=== PATIENT | male | born 1930 | race Caucasian/White ===

== ENCOUNTER 2017-03-20 15:11 | Outpatient (CLI) ==
[2016-08-22 10:46] VITALS: BMI 25.7
[2017-03-20 16:29] LABS: BASOPHILS % (AUTO) 0.4 % (0.0-3.0); EOSINOPHILS # (AUTO) 0.2 K/ul (0.0-0.7); EOSINOPHILS % (AUTO) 3.2 % (0.0-7.0); HEMATOCRIT 40.4 % (42.0-52.0); HEMOGLOBIN 13.7 g/dl (14.0-18.0); IMMATURE GRANULOCYTE % (AUTO) 0.6 % (0.0-5.0); LYMPHOCYTES # (AUTO) 1.2 K/uL (0.60-3.4); LYMPHOCYTES % (AUTO) 24.2 (10.0-50.0); MEAN CORPUSCULAR HEMOGLOBIN 29.5 pg (27.0-31.0); MEAN CORPUSCULAR HGB CONC 33.9 (31.8-35.4); MEAN CORPUSCULAR VOLUME 87.1 fl (80.0-94.0); MONOCYTES # (AUTO) 0.6 K/uL (0.4-2.0); MONOCYTES % (AUTO) 12.5 (0-10); NEUTROPHILS % (AUTO) 59.1; PLATELET COUNT 141 10^3/uL (140-440); RED BLOOD COUNT 4.64 10^6/ul (4.70-6.10); WHITE BLOOD COUNT 5.04 K/ul (4.2-10.2)
[2017-03-20 17:02] LABS: ALBUMIN 3.8 g/dL (3.4-5.0); ALBUMIN/GLOBULIN RATIO 1.15; ANION GAP 14.2; BILIRUBIN,TOTAL 0.4 mg/dL (0.00-1.20); BUN/CREATININE RATIO 9.7; CALCIUM 9.1 mg/dL (8.2-10.2); CHOL/HDL RATIO 4.2 (4.5-6.4); CREATININE 1.03 mg/dL (0.60-1.10); POTASSIUM 4.2 mmol/L (3.5-5.1); TOTAL PROTEIN 7.1 g/dL (5.8-8.1)
== END 2017-03-20 15:12 | disposition home or self-care (01) ==
LOC: LAB 15:11
PROVIDERS: ATTEND Emergency Medicine
DX: E11.9 Type 2 diabetes mellitus without complications (principal); I10 Essential (primary) hypertension; E78.5 Hyperlipidemia, unspecified; M54.2 Cervicalgia; Z12.5 Encounter for screening for malignant neoplasm of prostate; J44.9 Chronic obstructive pulmonary disease, unspecified
CPT/HCPCS: 36415; 80053; 80061; 83036; 84443; 85025

== ENCOUNTER 2017-03-28 14:27 | Inpatient (IN) ==
--- NOTE | 2017-03-28 14:39 | ED.PDOC ---
General ED Provider: Dr. PHAM WOODARD JR Chief Complaint: Dizziness Stated Complaint: patient c/o feeling dizzy and weak. states he saw dr. menard on or thursday for neck pain. states he had blood drawn but unsure what it showed. states his eyes are bothering him too "I just about can't see"[End] 97.9 56 14 95% 173/87 10 Time Seen by Physician: 14:39 Information Source: Patient Exam Limitations: No limitations Primary Care Provider: AZAEL MENARD[facility] Nursing and Triage Documentation Reviewed and Agree: No Review of Systems - Review Of Systems Constitutional: Reports: Malaise, Weakness Eyes: Reports: Blurred vision, Vision change, Other (history damage to right eye ) Ears, Nose, Mouth, Throat: Reports: No symptoms Respiratory: Reports: No symptoms Cardiac: Reports: Lightheadedness GI: Reports: No symptoms : Reports: No symptoms Musculoskeletal: Reports: Other Skin: Reports: No symptoms Neurological: Reports: Weakness Endocrine: Reports: No symptoms Hematologic/Lymphatic: Reports: No symptoms All Other Systems: Other Past Medical History - Past Medical History Previously Healthy: No Endocrine: Reports: DM 2, Dyslipidemia Cardiovascular: Reports: CAD, Hypertension Respiratory: Reports: COPD Hematological: Reports: Anemia Gastrointestinal: Reports: GERD Genitourinary: Reports: None Neuro/Psych: Reports: Anxiety Musculoskeletal: Reports: Arthritis, Back Pain, Joint Pain Cancer: Reports: None Other Pertinent Past Medical History: Shingles , 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 - Surgical History General Surgical History: Reports: None, Back Surgery, Other (sx stomach sx), Unknown - Family History Family History: Reports: None - Social History Smoking Status: Former smoker Hx Substance Use: No Alcohol Screening: None Physical Exam - Physical Exam Appearance: Well-appearing Eyes: HAYDEE, EOMI, Conjunctiva clear ENT: Ears normal, Nose normal, Oropharynx normal Neck: Supple Respiratory: Airway patent, Breath sounds clear, Breath sounds equal, Respirations nonlabored Cardiovascular: RRR, Pulses normal, No rub, No murmur GI/: Soft, Nontender, No masses, Bowel sounds normal, No Organomegaly Musculoskeletal: Normal strength, ROM intact, No edema, No calf tenderness Skin: Warm, Dry, Normal color Neurological: Sensation intact, Motor intact, Reflexes intact, Cranial nerves intact, Alert, Oriented Psychiatric: Anxious Interpretation - Radiology Interpretation Radiology Interpretation By: Radiologist Radiology Results: Positive Exam Interpreted: CT Scan (bilateral SDH (contacted dr Menard calling orthodox Dr Westfall)) - EKG Interpretation Time of EKG #1: 15:03 Rate: Willian Rhythm: Sinus ST Segment: Other (1st deg AVB) Critical Care Note - Critical Care Note Total Time (mins): 20 Course - Course Hematology/Chemistry: 03/29/17 04:30 03/29/17 04:30 Orders, Labs, Meds: Lab Review 03/28/17 15:00 WBC 4.96 RBC 4.22 L Hgb 12.5 L Hct 36.1 L MCV 85.5 MCH 29.6 MCHC 34.6 RDW Coeff of Oj 14.0 Plt Count 140 Immature Gran % (Auto) 0.4 Neut % (Auto) 59.3 Lymph % (Auto) 23.4 [place] % (Auto) 12.7 H Eos % (Auto) 3.8 Baso % (Auto) 0.4 Immature Gran # (Auto) 0.0 Neut # 2.9 Lymph # 1.2 [place] # 0.6 Eos # 0.2 Baso # 0.0 PT 9.8 INR 0.95 APTT 23.8 L Sodium 141 Potassium 4.2 Chloride 105 Carbon Dioxide 21 L Anion Gap 19.2 BUN 14 Creatinine 1.18 H Estimated GFR (MDRD) 59.00 BUN/Creatinine Ratio 11.86 Glucose 186 H Calcium 9.1 Total Bilirubin 0.31 AST 15 ALT 19 Alkaline Phosphatase 65 Total Creatine Kinase 69 Troponin I < 0.0100 B-Natriuretic Peptide 43 Total Protein 6.6 Albumin 3.6 Globulin 3.0 Albumin/Globulin Ratio 1.20 Orders Category Date Time Status ADMIT PATIENT INPATIENT .TO SCU (MONITORED BED) ADMISSION 03/28/17 15:46 Active EKG-(ED ONLY) Stat CARDIO 03/28/17 14:42 Completed ACTIVITY .BR with BRP CARE 03/28/17 15:46 Active BLOOD GLUCOSE MONITORING 0630,1100,1700,2100 CARE 03/28/17 15:55 Active GIVE HS SNACK 2100 CARE 03/28/17 15:55 Active INTAKE & OUTPUT Q8HR CARE 03/28/17 15:46 Active Neuro Check [NEUROLOGICAL CHECKS] Q2HR CARE 03/28/17 15:49 Active TELEMETRY MONITORING TELE CARE 03/28/17 15:47 Active VITAL SIGNS Q4HR CARE 03/28/17 15:46 Active ADA 1800 KYLE. DIET DIETARY 03/28/17 Dinner Ordered HS SNACK DIETARY 03/28/17 Dinner Ordered B-TYPE NATRIURETIC PEPTIDE Stat LAB 03/28/17 15:00 Completed CBC W/ AUTO DIFF DAILY@0600 LAB 03/29/17 04:30 Completed CBC W/ AUTO DIFF DAILY@0600 LAB 03/30/17 06:00 Ordered CBC W/ AUTO DIFF DAILY@0600 LAB 03/31/17 06:00 Ordered CBC W/ AUTO DIFF DAILY@0600 LAB 04/01/17 06:00 Ordered CBC W/ AUTO DIFF DAILY@0600 LAB 04/02/17 06:00 Ordered CBC W/ AUTO DIFF DAILY@0600 LAB 04/03/17 06:00 Ordered CBC W/ AUTO DIFF DAILY@0600 LAB 04/04/17 06:00 Ordered CBC W/ AUTO DIFF DAILY@0600 LAB 04/05/17 06:00 Ordered CBC W/ AUTO DIFF DAILY@0600 LAB 04/06/17 06:00 Ordered CBC W/ AUTO DIFF DAILY@0600 LAB 04/07/17 06:00 Ordered CBC W/ AUTO DIFF DAILY@0600 LAB 04/08/17 06:00 Ordered CBC W/ AUTO DIFF DAILY@0600 LAB 04/09/17 06:00 Ordered CBC W/ AUTO DIFF DAILY@0600 LAB 04/10/17 06:00 Ordered CBC W/ AUTO DIFF DAILY@0600 LAB 04/11/17 06:00 Ordered CBC W/ AUTO DIFF DAILY@0600 LAB 04/12/17 06:00 Ordered CBC W/ AUTO DIFF DAILY@0600 LAB 04/13/17 06:00 Ordered CBC W/ AUTO DIFF DAILY@0600 LAB 04/14/17 06:00 Ordered CBC W/ AUTO DIFF DAILY@0600 LAB 04/15/17 06:00 Ordered CBC W/ AUTO DIFF DAILY@0600 LAB 04/16/17 06:00 Ordered CBC W/ AUTO DIFF DAILY@0600 LAB 04/17/17 06:00 Ordered CBC W/ AUTO DIFF Stat LAB 03/28/17 15:00 Completed COMPREHENSIVE METABOLIC PANEL DAILY@0600 LAB 03/29/17 04:30 Completed COMPREHENSIVE METABOLIC PANEL DAILY@0600 LAB 03/30/17 06:00 Ordered COMPREHENSIVE METABOLIC PANEL DAILY@0600 LAB 03/31/17 06:00 Ordered COMPREHENSIVE METABOLIC PANEL DAILY@0600 LAB 04/01/17 06:00 Ordered COMPREHENSIVE METABOLIC PANEL DAILY@0600 LAB 04/02/17 06:00 Ordered COMPREHENSIVE METABOLIC PANEL DAILY@0600 LAB 04/03/17 06:00 Ordered COMPREHENSIVE METABOLIC PANEL DAILY@0600 LAB 04/04/17 06:00 Ordered COMPREHENSIVE METABOLIC PANEL DAILY@0600 LAB 04/05/17 06:00 Ordered COMPREHENSIVE METABOLIC PANEL DAILY@0600 LAB 04/06/17 06:00 Ordered COMPREHENSIVE METABOLIC PANEL DAILY@0600 LAB 04/07/17 06:00 Ordered COMPREHENSIVE METABOLIC PANEL DAILY@0600 LAB 04/08/17 06:00 Ordered COMPREHENSIVE METABOLIC PANEL DAILY@0600 LAB 04/09/17 06:00 Ordered COMPREHENSIVE METABOLIC PANEL DAILY@0600 LAB 04/10/17 06:00 Ordered COMPREHENSIVE METABOLIC PANEL DAILY@0600 LAB 04/11/17 06:00 Ordered COMPREHENSIVE METABOLIC PANEL DAILY@0600 LAB 04/12/17 06:00 Ordered COMPREHENSIVE METABOLIC PANEL DAILY@0600 LAB 04/13/17 06:00 Ordered COMPREHENSIVE METABOLIC PANEL DAILY@0600 LAB 04/14/17 06:00 Ordered COMPREHENSIVE METABOLIC PANEL DAILY@0600 LAB 04/15/17 06:00 Ordered COMPREHENSIVE METABOLIC PANEL DAILY@0600 LAB 04/16/17 06:00 Ordered COMPREHENSIVE METABOLIC PANEL DAILY@0600 LAB 04/17/17 06:00 Ordered COMPREHENSIVE METABOLIC PANEL Stat LAB 03/28/17 15:00 Completed CREATINE KINASE Stat LAB 03/28/17 15:00 Completed PARTIAL THROMBOPLASTIN TIME Stat LAB 03/28/17 15:00 Completed PT WITH INR DAILY@0600 LAB 03/29/17 04:30 Completed PT WITH INR DAILY@0600 LAB 03/30/17 06:00 Ordered PT WITH INR DAILY@0600 LAB 03/31/17 06:00 Ordered PT WITH INR DAILY@0600 LAB 04/01/17 06:00 Ordered PT WITH INR DAILY@0600 LAB 04/02/17 06:00 Ordered PT WITH INR DAILY@0600 LAB 04/03/17 06:00 Ordered PT WITH INR DAILY@0600 LAB 04/04/17 06:00 Ordered PT WITH INR DAILY@0600 LAB 04/05/17 06:00 Ordered PT WITH INR DAILY@0600 LAB 04/06/17 06:00 Ordered PT WITH INR DAILY@0600 LAB 04/07/17 06:00 Ordered PT WITH INR DAILY@0600 LAB 04/08/17 06:00 Ordered PT WITH INR DAILY@0600 LAB 04/09/17 06:00 Ordered PT WITH INR DAILY@0600 LAB 04/10/17 06:00 Ordered PT WITH INR DAILY@0600 LAB 04/11/17 06:00 Ordered PT WITH INR DAILY@0600 LAB 04/12/17 06:00 Ordered PT WITH INR DAILY@0600 LAB 04/13/17 06:00 Ordered PT WITH INR DAILY@0600 LAB 04/14/17 06:00 Ordered PT WITH INR DAILY@0600 LAB 04/15/17 06:00 Ordered PT WITH INR DAILY@0600 LAB 04/16/17 06:00 Ordered PT WITH INR DAILY@0600 LAB 04/17/17 06:00 Ordered PT WITH INR Stat LAB 03/28/17 15:00 Completed TROPONIN I Stat LAB 03/28/17 15:00 Completed Amlodipine Besylate [Norvasc] MEDS 03/28/17 21:00 Discontinued 10 mg PO BID Gabapentin [Neurontin] MEDS 03/28/17 21:00 Discontinued 300 mg PO TID Hydrocodone Bit/Acetaminophen [Anderson 5-325] MEDS 03/28/17 15:51 Active 0.5 tab PO BID PRN Insulin Detemir [Levemir] MEDS 03/28/17 21:00 Discontinued 28 unit SUBCUT BID Insulin Regular, Human [Humulin R] MEDS 03/28/17 15:54 Active See Protocol SUBCUT PRN PRN Latanoprost [Xalatan] MEDS 03/28/17 21:00 Active 1 drop OP BEDTIME Lisinopril [Lisinopril] MEDS 03/28/17 21:00 Discontinued 20 mg PO BID Omeprazole [Prilosec] MEDS 03/29/17 06:30 Active 20 mg PO QDAC Simvastatin [Zocor] MEDS 03/29/17 09:00 Discontinued 20 mg PO DAILY RESUSCITATION STATUS Routine OTHERS 03/28/17 15:46 Ordered CHEST, 1V AP ONLY Stat RADS 03/28/17 14:[address] HEAD W/O CONTRAST Stat RADS 03/28/17 14:[address] HEAD W/O CONTRAST Timed RADS 03/29/17 15:00 Ordered Medications Generic Name Dose Route Start Last Admin Trade Name Oumou PRN Reason Stop Dose Admin Acetaminophen/Hydrocodone Bitart 0.5 tab 03/28/17 15:51 Anderson 5-325 PO BID PRN pain Gabapentin 600 mg 03/29/17 07:23 03/29/17 08:59 Neurontin PO 600 mg TID ANTHONY Administration Insulin Detemir 50 unit 03/29/17 09:00 03/29/17 08:57 Levemir SUBCUT 50 unit BID ANTHONY Administration Insulin Human Regular 0 unit 03/28/17 15:54 03/29/17 11:05 Humulin R SUBCUT 3 unit PRN PRN Administration Hyperglycemica Protocol Latanoprost 1 drop 03/28/17 21:00 03/28/17 21:02 Xalatan OP 1 drop BEDTIME ANTHONY Administration Lisinopril 20 mg 03/29/17 09:00 03/29/17 08:58 Zestril PO 20 mg BID ANTHONY Administration Omeprazole 20 mg 03/29/17 06:30 03/29/17 05:48 Prilosec PO 20 mg QDAC ANTHONY Administration Simvastatin 20 mg 03/29/17 09:30 03/29/17 09:11 Zocor PO 20 mg DAILY ANTHONY Administration Sodium Chloride 1 syr 03/28/17 21:00 03/29/17 13:09 Saline Flush IVF 1 syr Q8HR ANTHONY Administration Discontinued Medications Generic Name Dose Route Start Last Admin Trade Name Hairq PRN Reason Stop Dose Admin Gabapentin 300 mg 03/28/17 21:00 03/28/17 20:58 Neurontin PO 300 mg TID ANTHONY Administration Insulin Detemir 28 unit 03/28/17 21:00 03/28/17 21:00 Levemir SUBCUT 28 unit BID ANTHONY Administration Non-Formulary Medication 10 mg 03/28/17 21:00 03/28/17 20:59 Amlodipine Besylate [Norvasc] PO Not Given BID ANTHONY Non-Formulary Medication 20 mg 03/28/17 21:00 03/28/17 21:03 Lisinopril [Lisinopril] PO Not Given BID ANTHONY Non-Formulary Medication 600 mg 03/28/17 21:00 03/28/17 21:04 Gabapentin [Gabapentin] PO 600 mg TID ANTHONY Administration Simvastatin 20 mg 03/29/17 09:00 03/29/17 09:14 Zocor PO Not Given DAILY ANTHONY Vital Signs: Temp Pulse Resp BP Pulse Ox 03/28/17 14:28 97.9 F 56 L 14 173/87 H 95 Departure - Departure Time of Disposition: 15:40 Disposition: ADMITTED INPATIENT Discharge Problem: Dizziness, Intracerebral hemorrhage Condition: Fair Pt referred to PMD for follow-up: Yes Allergies/Adverse Reactions: Allergies No Known Allergies Allergy (Verified 03/28/17 14:31) Home Medications: Ambulatory Orders Omeprazole [Prilosec] 20 mg PO QDAC 08/15/13 Gabapentin 600 mg PO TID 06/19/14 Lisinopril 20 mg PO BID 06/19/14 Simvastatin 20 mg PO DAILY 06/19/14 Latanoprost [Xalatan] 1 drop OP BEDTIME 06/27/14 Insulin Detemir [Levemir] 50 unit SQ BID 10/27/15 Aspirin [Aspirin EC] 81 mg PO DAILY 03/25/16
[2017-03-28 15:06] LABS: BASOPHILS % (AUTO) 0.4 % (0.0-3.0); EOSINOPHILS # (AUTO) 0.2 K/ul (0.0-0.7); EOSINOPHILS % (AUTO) 3.8 % (0.0-7.0); HEMATOCRIT 36.1 % (42.0-52.0); HEMOGLOBIN 12.5 g/dl (14.0-18.0); IMMATURE GRANULOCYTE % (AUTO) 0.4 % (0.0-5.0); LYMPHOCYTES # (AUTO) 1.2 K/uL (0.60-3.4); LYMPHOCYTES % (AUTO) 23.4 (10.0-50.0); MEAN CORPUSCULAR HEMOGLOBIN 29.6 pg (27.0-31.0); MEAN CORPUSCULAR HGB CONC 34.6 (31.8-35.4); MEAN CORPUSCULAR VOLUME 85.5 fl (80.0-94.0); MONOCYTES # (AUTO) 0.6 K/uL (0.4-2.0); MONOCYTES % (AUTO) 12.7 (0-10); NEUTROPHILS # (AUTO) 2.9 K/ul (2.0-6.9); NEUTROPHILS % (AUTO) 59.3; PLATELET COUNT 140 10^3/uL (140-440); RED BLOOD COUNT 4.22 10^6/ul (4.70-6.10); WHITE BLOOD COUNT 4.96 K/ul (4.2-10.2)
--- NOTE | 2017-03-28 15:07 | DI ---
Exam: Single view chest x-ray. Date: 03/28/2017. Comparison: 02/15/2015. HISTORY: Chest pain. FINDINGS: Degenerative changes are seen in the acromioclavicular joints and thoracic spine. There is a lesser inspiration. There are probable chronic fibrotic changes in the lung bases. The cardiac silhouette and pulmonary vasculature are normal. ASVD is present. Impression: No acute intrathoracic findings with probable chronic fibrotic changes in the lung base s. ASVD.
--- NOTE | 2017-03-28 15:24 | CT ---
EXAM: CT scan of head without contrast. HISTORY: Dizziness COMPARISON: 08/22/2016 TECHNIQUE: Axial scans acquired at 5 mm slice thicknesses. FINDINGS: There are bilateral subdural hematomas. Left subdural hematoma, depth 1.15 cm , extends for length of approximately 5.6 cm adjacent to the l eft frontal and parietal lobe. There is also a right subdural hematoma, depth 0.65 cm that extends for length of approximately 5.8 cm adjacent to the right frontal and parietal lobe. Density of left subdural hematoma 50 HU and right subdural hematoma 36 HU There is no shift midline structures. Basilar cisterns visible. There is no cranial fracture. There is some cortical atrophy involving the frontal and parietal lobes. There is decreased attenuation seen in the periventricula r matter consistent with chronic microvascular ischemic changes. No acute large vessel cerebrovascu lar accident is seen. Ventricles appear normal considering degree of atrophy. There are no air-flu id levels visualized sinuses and no opacification mastoid air cells is seen. IMPRESSION: 1. There are bilateral subdural hematomas as described. Depth of right subdural hematoma 0.65 cm a nd depth of left subdural hematoma 1.15 cm. There is some minimal mass effect on the cortical sulci right and left frontal and parietal lobe with no shift midline structures. No intraventricular hem orrhage is seen. 2. No acute large vessel cerebrovascular accident. 3. Age appropriate cortical atrophy is seen as well as some chronic white matter ischemic changes. Critical result of intracranial subdural hematomas was called to ER staff, Dr. Thomas . I discussed details of subdural hematomas by phone with Dr. Thomas at 3:15 p.m. Faxed report sent.
[2017-03-28 15:30] LABS: ALANINE AMINOTRANSFERASE 19 U/L (12-78); ALBUMIN 3.6 g/dL (3.4-5.0); ALKALINE PHOSPHATASE 65 U/L (56-119); ANION GAP 19.2; ASPARTATE AMINO TRANSFERASE 15 U/L (15-37); BILIRUBIN,TOTAL 0.31 mg/dL (0.00-1.20); BLOOD UREA NITROGEN 14 mg/dL (7-18); BUN/CREATININE RATIO 11.86; CALCIUM 9.1 mg/dL (8.2-10.2); CARBON DIOXIDE 21 mmol/L (23-31); CHLORIDE 105 mmol/L (98-107); CREATINE KINASE 69 U/L; CREATININE 1.18 mg/dL (0.60-1.10); GLUCOSE 186 mg/dL (82-115); POTASSIUM 4.2 mmol/L (3.5-5.1); SODIUM 141 mmol/L (136-145); TOTAL PROTEIN 6.6 g/dL (5.8-8.1)
[2017-03-28] MEDS ORDERED: NORCO 5-325 PO PRN (15:51)
[2017-03-28 16:11] LABS: PARTIAL THROMBOPLASTIN TIME 23.8 SEC (23.9-40.0); PROTHROMBIN TIME 9.8 SEC (9.3-11.0)
[2017-03-28 17:14] VITALS: BMI 26.2
[2017-03-28] MEDS: HUMULIN R SUBCUT PRN ×2 (17:33→20:46)
[2017-03-28] MEDS ORDERED: ZESTRIL ONE (20:52)
[2017-03-28] MEDS ORDERED: NORVASC ONE (20:52)
[2017-03-28] MEDS ORDERED: XALATAN OP SCH (21:00)
[2017-03-28] MEDS ORDERED: NON-FORMULARY MEDICATION (Gabapentin [Gabapentin] 600 MG) PO SCH (21:00)
[2017-03-28] MEDS ORDERED: NEURONTIN PO SCH (21:00)
[2017-03-28] MEDS ORDERED: NON-FORMULARY MEDICATION (Amlodipine Besylate [Norvasc] 10 MG) PO SCH ×22 (21:00)
[2017-03-28] MEDS ORDERED: LEVEMIR SUBCUT SCH (21:00)
[2017-03-28] MEDS ORDERED: NON-FORMULARY MEDICATION (Lisinopril [Lisinopril] 20 MG) PO SCH ×22 (21:00)
[2017-03-29 04:52] LABS: BASOPHILS % (AUTO) 0.5 % (0.0-3.0); EOSINOPHILS # (AUTO) 0.2 K/ul (0.0-0.7); EOSINOPHILS % (AUTO) 3.7 % (0.0-7.0); HEMATOCRIT 37.3 % (42.0-52.0); HEMOGLOBIN 12.8 g/dl (14.0-18.0); IMMATURE GRANULOCYTE % (AUTO) 0.3 % (0.0-5.0); LYMPHOCYTES # (AUTO) 1.3 K/uL (0.60-3.4); LYMPHOCYTES % (AUTO) 22.7 (10.0-50.0); MEAN CORPUSCULAR HEMOGLOBIN 29.2 pg (27.0-31.0); MEAN CORPUSCULAR HGB CONC 34.3 (31.8-35.4); MEAN CORPUSCULAR VOLUME 85.2 fl (80.0-94.0); MONOCYTES # (AUTO) 0.6 K/uL (0.4-2.0); MONOCYTES % (AUTO) 10.7 (0-10); NEUTROPHILS # (AUTO) 3.7 K/ul (2.0-6.9); NEUTROPHILS % (AUTO) 62.1; PLATELET COUNT 150 10^3/uL (140-440); RED BLOOD COUNT 4.38 10^6/ul (4.70-6.10); WHITE BLOOD COUNT 5.91 K/ul (4.2-10.2)
[2017-03-29 05:04] LABS: PROTHROMBIN TIME 9.9 SEC (9.3-11.0)
[2017-03-29 05:15] LABS: ALBUMIN 3.5 g/dL (3.4-5.0); ALBUMIN/GLOBULIN RATIO 1.25; BILIRUBIN,TOTAL 0.44 mg/dL (0.00-1.20); CALCIUM 9.4 mg/dL (8.2-10.2); TOTAL PROTEIN 6.3 g/dL (5.8-8.1)
[2017-03-29] MEDS: PRILOSEC PO SCH (05:48)
[2017-03-29] MEDS: LEVEMIR SUBCUT SCH ×2 (08:57→20:25)
[2017-03-29] MEDS: ZESTRIL PO SCH ×2 (08:58→20:24)
[2017-03-29] MEDS: NEURONTIN PO SCH ×3 (08:59→20:26)
[2017-03-29] MEDS ORDERED: ZOCOR PO SCH (09:00)
[2017-03-29] MEDS ORDERED: NORVASC PO SCH (09:00)
[2017-03-29] MEDS: ZOCOR PO SCH (09:11)
[2017-03-29] MEDS: HUMULIN R SUBCUT PRN ×2 (11:05→20:25)
--- NOTE | 2017-03-29 15:06 | CT ---
EXAM: CT of the head without contrast History: Follow-up subdural hematomas. Comparison: Head CT 03/28/2017 Technique: Multiplanar CT images through the head were obtained without the administration of IV co ntrast Findings: The visualized paranasal sinuses and mastoid air cells are clear in general. No acute ca lvarial abnormalities. No significant interval change in the bilateral subdural hematomas and again larger on the left. Th ere is no midline shift. No hydrocephalous. No change in the periventricular and subcortical white matter hypodensities. Impression: No significant interval change in the bilateral subdural hematomas. No midline shift. Continued follow-up recommended.
[2017-03-29] MEDS: XALATAN OP SCH (20:26)
[2017-03-30 04:47] LABS: BASOPHILS % (AUTO) 0.3 % (0.0-3.0); EOSINOPHILS # (AUTO) 0.2 K/ul (0.0-0.7); EOSINOPHILS % (AUTO) 3.3 % (0.0-7.0); HEMATOCRIT 37.4 % (42.0-52.0); IMMATURE GRANULOCYTE % (AUTO) 0.3 % (0.0-5.0); LYMPHOCYTES # (AUTO) 1.3 K/uL (0.60-3.4); LYMPHOCYTES % (AUTO) 20.9 (10.0-50.0); MEAN CORPUSCULAR HEMOGLOBIN 29.7 pg (27.0-31.0); MEAN CORPUSCULAR HGB CONC 34.8 (31.8-35.4); MEAN CORPUSCULAR VOLUME 85.4 fl (80.0-94.0); MONOCYTES # (AUTO) 0.6 K/uL (0.4-2.0); MONOCYTES % (AUTO) 10.5 (0-10); NEUTROPHILS # (AUTO) 3.9 K/ul (2.0-6.9); NEUTROPHILS % (AUTO) 64.7; PLATELET COUNT 152 10^3/uL (140-440); RED BLOOD COUNT 4.38 10^6/ul (4.70-6.10); WHITE BLOOD COUNT 5.99 K/ul (4.2-10.2)
[2017-03-30 04:58] LABS: PROTHROMBIN TIME 9.9 SEC (9.3-11.0)
[2017-03-30 05:14] LABS: ALBUMIN 3.3 g/dL (3.4-5.0); ALBUMIN/GLOBULIN RATIO 1.03; ANION GAP 15.9; BILIRUBIN,TOTAL 0.41 mg/dL (0.00-1.20); BUN/CREATININE RATIO 15.68; CALCIUM 9.2 mg/dL (8.2-10.2); CREATININE 1.02 mg/dL (0.60-1.10); POTASSIUM 3.9 mmol/L (3.5-5.1); TOTAL PROTEIN 6.5 g/dL (5.8-8.1)
[2017-03-30] MEDS: PRILOSEC PO SCH (05:35)
[2017-03-30] MEDS: TOBREX 0.3% OP SCH ×4 (09:10→21:13)
[2017-03-30] MEDS: LEVEMIR SUBCUT SCH ×2 (09:10→21:12)
[2017-03-30] MEDS: ZESTRIL PO SCH ×2 (09:11→21:07)
[2017-03-30] MEDS: ZOCOR PO SCH (09:11)
[2017-03-30] MEDS: NEURONTIN PO SCH ×3 (09:11→21:07)
[2017-03-30] MEDS: HUMULIN R SUBCUT PRN ×2 (12:22→21:11)
--- NOTE | 2017-03-30 13:31 | MRI ---
EXAM: Brain MRI without contrast. HISTORY: Dizziness. COMPARISON: Head CT 03/29/2017, head CT 03/28/[address] 08/22/2016. TECHNIQUE: Multiplanar, multisequence MR images were acquired of the brain without contrast. FINDINGS: There are bilateral nearly holohemispheric mixed signal intensity predominantly early sub acute subdural hematomas. Over the frontoparietal regions bilaterally at the convexity, the crescent ic fluid collections have mildly hyperintense T1 and T2 signal consistent with early subacute subdur al hematomas. More inferiorly, there is heterogeneous slightly hyperintense and bright T1 and inter mediate and dark T2 signal in the occipital subdural hematomas bilaterally compatible with a subacut e subdural hemorrhage. There are fluid fluid levels in the anterior components of the bifrontal sub dural hematomas along the anterior frontal lobes and above the orbital roofs. Thin linear T1 and T2 hypointensities are present in the subdural fluid collections bilaterally anterior to both frontal lobes consistent with membranes. The subdural hematomas produce mild effacement of the sulci in the lateral frontal and parietal lobes bilaterally, greater on the left and there is mild leftward bowi ng of the septum pellucidum. The left sided there is a holohemispheric subdural hematoma measures t ypically a maximum of up to 1.2 cm over the superolateral left frontal lobe and 0.8 cm over the supe rior left parietal lobe. Over the right frontal lobe, the subdural hematoma measures typically 0.7 cm and over the right parietal lobe 0.5 cm. There is mild prominence of the lateral and third ventricles that is considered normal for the patie nt's age. The brain parenchyma has no diffusion restriction to suggest acute hypoperfusion or infarction. The re are a few small areas of hyperintense foci of the deep to the right sequence in the. Dural hemat omas which may represent clots.. There is a subdural hyperintense band of DWI signal posteriorly [place] both occipital lobes that may represent relatively fresh radiating from the outer membrane. Sma ll T2 hyperintensities are present in the supratentorial white matter and [place] compatible with mild leukomalacia. There is a chronic lacuna or dilated perivascular space in the posterior right tinter photograph al capsule. The corpus callosum is unremarkable. The sella is shallow and the pituitary gland is s mall and flattened inferiorly consistent with a mostly empty sella. There are no intraorbital masses. However, there is focal slightly hyperintense T1, hypointense T2 and bright FLAIR signal along the right posterior sclera of the right colon. There has been previou s lens surgery bilaterally. Ophthalmology consultation is advised. Minor scattered mucosal thickening is present in the ethmoid air cells bilaterally. There is modera te polypoid mucosal thickening in the left maxillary sinus with intermediate T1 and dark T2 signal f luid that may represent fluid with proteinaceous debris or hemorrhage. There is under pneumatizatio n of the inferior right mastoid air cells. Flow voids are present in the major intracranial arteries and dural venous sinuses. IMPRESSION: 1. Bilateral nearly holohemispheric subacute subdural hematomas with subacute hemorrhage of slightl y varying age and a few membranes anteriorly. This measures a maximum thickness over the left front al lobe at the convexity of the 1.2 cm, over the superior left parietal lobe of 0.8 cm, over the rig ht frontal lobe near the convexity of 0.7 cm and over the superior right parietal lobe 0.5 cm. This produces mild local sulcal effacement without significant midline shift. Neurosurgical consultation is advised. 2. Mild chronic ischemic small vessel disease. 3. No acute cerebral infarct. Critical results previously telephoned to the referring physician on 03/28/2017 by the on-call radio logist, Dr. Jay.
--- NOTE | 2017-03-30 15:34 | HP ---
DATE OF SERVICE: 03/28/17 CHIEF COMPLAINT: Dizziness and problems with his vision. HISTORY OF PRESENT ILLNESS: This is an 86 year old male who has seen me in the office in the [facility] on for the neck pain. The patient recently had a MRI of the C spine for the neck pain, but his dizziness was getting worse and so he came to the emergency room and also complained that he having some visual problems. Dr. Thomas saw the patient in the emergency room. CT scan of the head showed the bilateral subdural hematoma. At that time, he called Dr. Westfall, Neurosurgeon in [place]. He thought the subdural hematoma maybe a couple of days old and it is not acute as there is midline pressure or anything. He said he is not a surgical candidate. I advised for the admission at [facility]. Keep repeating the CT scans in case of an increase or changes and he will see him for a consultation at that time. At that time, the patient is admitted to the hospital for neuro checks and follow CT scans. REVIEW OF SYSTEMS: Elevated sugars. CONSTITUTIONAL: No fever, no chills. HEENT: Dizziness, visual problems. ENDOCRINE: No weight gain; no weight loss. CVS: No chest pain. No PND, no orthopnea. No shortness of breath. No PND, no orthopnea. RESPIRATORY: No cough, no congestion. No hemoptysis. GI: No nausea, no vomiting. No abdominal pain. No melena. : No hematuria. No polyuria. MUSCULOSKELETAL: Neck pain. PSYCHIATRIC: Not anxious. No depression. No suicidal thoughts. No homicidal thoughts. SKIN: Intact, no open lesions. 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 He is still active and works farming. FAMILY HISTORY: Significant for the diabetes and hypertension. HOME MEDICATIONS: Prilosec 20 mg daily Lisinopril 20 mg twice daily Gabapentin 600 mg three times daily Simvastatin 20 mg daily Latanoprost one drop at bedtime Levemir 50 units twice daily Aspirin 81 mg daily ALLERGIES: No known allergies PHYSICAL EXAMINATION: V/S: Blood pressure 173/87, respiratory rate 14, heart rate 56, temperature 97.9. HEENT: Atraumatic, normocephalic. No scleral icterus. Pallor positive. Mucosa dry. NECK: Supple. No JVD, no bruit. No lymphadenopathy. No thyromegaly. HEART: S1, S2 normal. No murmur. No cyanosis or clubbing. No ascites. LUNGS: Decreased and clear. No rales or rhonchi. ABDOMEN: Soft, nontender. Bowel sounds are active. No CVA tenderness. No rigidity or guarding. EXTREMITIES: No cyanosis, clubbing or pedal edema. Right thumb amputated. MUSCULOSKELETAL: Normal joints, no swelling. NEUROLOGIC: The patient is dizzy. SKIN: Intact; no open lesions. LYMPHATIC: No lymph nodes palpable. LABS: White count is 4.96, hemoglobin 12.5, hematocrit 36.1, platelet count 140 , PT and INR is normal. Sodium 141, potassium 4.2, chloride 105, bicarb 21, BUN 14, creatinine 1.18, glucose 186. ASSESSMENT: 1. SUBACUTE BILATERAL SUBDURAL HEMATOMA WITHOUT ANY MASS EFFECT 2. HISTORY OF DIZZINESS 3. DIABETES 4. HYPERTENSION 5. SHINGLES, POSTHERPETIC NEURALGIA PLAN: 1. Admit the patient to the regular floor. 2. Neuro checks every 2 hours. 3. No aspirin or Plavix. 4. Accucheck with coverage. 5. Complete bed rest at the given time. Time spent on the patient is more 75 minutes today. [facility]
[2017-03-30] MEDS: XALATAN OP SCH (21:13)
[2017-03-31 05:01] LABS: BASOPHILS % (AUTO) 0.5 % (0.0-3.0); EOSINOPHILS # (AUTO) 0.2 K/ul (0.0-0.7); EOSINOPHILS % (AUTO) 2.6 % (0.0-7.0); HEMATOCRIT 38.9 % (42.0-52.0); HEMOGLOBIN 13.5 g/dl (14.0-18.0); IMMATURE GRANULOCYTE % (AUTO) 0.6 % (0.0-5.0); LYMPHOCYTES # (AUTO) 1.2 K/uL (0.60-3.4); MEAN CORPUSCULAR HEMOGLOBIN 29.7 pg (27.0-31.0); MEAN CORPUSCULAR HGB CONC 34.7 (31.8-35.4); MEAN CORPUSCULAR VOLUME 85.7 fl (80.0-94.0); MONOCYTES # (AUTO) 0.8 K/uL (0.4-2.0); MONOCYTES % (AUTO) 12.3 (0-10); NEUTROPHILS # (AUTO) 4.3 K/ul (2.0-6.9); PLATELET COUNT 160 10^3/uL (140-440); RED BLOOD COUNT 4.54 10^6/ul (4.70-6.10); WHITE BLOOD COUNT 6.51 K/ul (4.2-10.2)
[2017-03-31 05:09] LABS: PROTHROMBIN TIME 9.9 SEC (9.3-11.0)
[2017-03-31 05:28] LABS: ALBUMIN 3.5 g/dL (3.4-5.0); ALBUMIN/GLOBULIN RATIO 1.13; ANION GAP 16.2; BILIRUBIN,TOTAL 0.54 mg/dL (0.00-1.20); BUN/CREATININE RATIO 15.68; CALCIUM 9.4 mg/dL (8.2-10.2); CREATININE 1.02 mg/dL (0.60-1.10); POTASSIUM 4.2 mmol/L (3.5-5.1); TOTAL PROTEIN 6.6 g/dL (5.8-8.1)
[2017-03-31] MEDS: TOBREX 0.3% OP SCH ×4 (05:54→13:20)
[2017-03-31] MEDS: PRILOSEC PO SCH (06:00)
[2017-03-31] MEDS: LEVEMIR SUBCUT SCH (09:45)
[2017-03-31] MEDS: ZESTRIL PO SCH (09:47)
[2017-03-31] MEDS: NEURONTIN PO SCH ×2 (09:47→15:01)
[2017-03-31] MEDS: ZOCOR PO SCH (09:47)
[2017-03-31] MEDS: HUMULIN R SUBCUT PRN (12:07)
--- NOTE | 2017-03-31 13:51 | PN ---
DATE OF SERVICE: 03/31/17 SUBJECTIVE: The patient is admitted with bilateral holo circumferential subdural hematoma. MRI of the brain was done yesterday which did show the 1.2 cm hematoma on the left side and 0.8 cm on the right side. Suggested to have reevaluation with neurosurgeon. We will be calling the neurosurgeon, Dr. Westfall office today and get his opinion. Otherwise, the patient still complains of haziness in the left eye. Otherwise, no fever, no chills, no PND, no orthopnea. REVIEW OF SYSTEMS: CONSTITUTIONAL: No fever, no chills. HEENT: Haziness in the left eye. ENDOCRINE: No weight gain, no weight loss. CVS: No angina symptoms. No CHF symptoms. No palpitations. No atypical chest pain for CAD. No shortness of breath. No PND, no orthopnea. RESPIRATORY: No cough, no hemoptysis. GI: No nausea, no vomiting. No abdominal pain. : No hematuria. No polyuria. MUSCULOSKELETAL:. No joint swelling. PSYCHIATRIC: Not anxious. No depression. No suicidal thoughts. No homicidal thoughts. SKIN: Intact. No rash. PHYSICAL EXAMINATION: V/S: BP 146/87, respiratory rate 15, heart rate 61, temperature 97.4. HEENT: Normocephalic, atraumatic. Mucosa dry, pallor positive. No icterus. Haziness in the left eye. NECK: Supple. No JVD, no carotid bruit. No lymphadenopathy. LUNGS: Clear to auscultation. No rales or rhonchi. HEART: S1, S2 normal. No S3. No murmur, gallop or regurgitation. ABDOMEN: Soft, nontender. Bowel sounds active. No rigidity. No rebound or guarding. No CVA tenderness. EXTREMITIES: No clubbing, cyanosis or pedal edema. MUSCULOSKELETAL: No joint swelling. NEUROLOGIC: Awake, alert, oriented times three. No focal deficit. LYMPHATIC: No lymph nodes palpable. SKIN: Intact. LABS: White count 6.51, hemoglobin 13.5, hematocrit 38.9, platelet count 160. Sodium 141, potassium 4.2, chloride 102, bicarb 27, BUN 16, creatinine 1.02. Glucose 121. ASSESSMENT: 1. ACUTE/SUBACUTE SUBDURAL HEMATOMA WITH LEFT EYE VISION PROBLEM 2. DIABETES 3. HYPERTENSION 4. 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 HYPERTENSION 6. COPD 7. CORONARY ARTERY DISEASE PLAN: 1. Call Dr. Westfall. 2. Out of bed to chair. 3. Fall precautions. 4. Will follow with the patient in daily rounds. TIME SPENT: More than 30 minutes MTDD
[2017-03-31 14:09] VITALS: BP 144/66; TEMP 98
--- NOTE | 2017-03-31 14:28 | PN ---
DATE OF SERVICE: 03/30/17 SUBJECTIVE: The CT scan that was done on 03/29, still showed the same, bilateral subdural hematoma and did not change much. The patient still complains of the left eye being foggy and not able to see much which he had initial complaint when he was getting admitted to the hospital. No headache or nausea at the given time. REVIEW OF SYSTEMS: CONSTITUTIONAL: No fever, no chills. HEENT: Normal. ENDOCRINE: No weight gain, no weight loss. CVS: No angina symptoms. No CHF symptoms. No palpitations. No atypical chest pain for CAD. No shortness of breath. No PND, no orthopnea. RESPIRATORY: No cough, no hemoptysis. GI: No nausea, no vomiting. No abdominal pain. : No hematuria. No polyuria. MUSCULOSKELETAL:. No joint swelling. PSYCHIATRIC: Not anxious. No depression. No suicidal thoughts. No homicidal thoughts. SKIN: Intact. No rash. PHYSICAL EXAMINATION: V/S: BP 173/81, respiratory rate 21, heart rate 64, temperature 97.8. HEENT: Normocephalic, atraumatic. Mucosa dry, pallor positive. No icterus. NECK: Supple. No JVD, no carotid bruit. No lymphadenopathy. LUNGS: Clear to auscultation. No rales or rhonchi. HEART: S1, S2 normal. No S3. No murmur, gallop or regurgitation. ABDOMEN: Soft, nontender. Bowel sounds active. No rigidity. No rebound or guarding. No CVA tenderness. EXTREMITIES: Right hand thumb amputated. No clubbing, cyanosis or pedal edema. MUSCULOSKELETAL: No joint swelling. NEUROLOGIC: Awake, alert, oriented times three. No focal deficit. LYMPHATIC: No lymph nodes palpable. SKIN: Intact. LABS: White count 5.99, hemoglobin 13.0, hematocrit 37.4, platelet count 152. Sodium 141, potassium 3.9, chloride 103, bicarb 26, BUN 16, creatinine 1.06, glucose 130. ASSESSMENT: 1. BILATERAL SUBDURAL HEMATOMA, SUBACUTE WITH LEFT EYE VISION IMPAIRMENT 2. HISTORY OF DIABETES 3. DIZZINESS 4. HYPERTENSION 5. RECURRENT FALLS 6. 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 OSTEOARTHRITIS PLAN: 1. MRI of the brain without 2. Neuro checks q.2hr 3. Continue medications 4. Will follow with the patient in daily rounds TIME SPENT: More than 30 minutes SHIRA
--- NOTE | 2017-03-31 15:04 | PN ---
DATE OF SERVICE: 03/29/17 SUBJECTIVE: The patient is a 86 year old male that was admitted with the bilateral subdural hematoma. The patient was due to the CAT scan today. No weakness but still has some headache and some fogginess in the vision. REVIEW OF SYSTEMS: CONSTITUTIONAL: No fever, no chills. HEENT: Normal. ENDOCRINE: No weight gain, no weight loss. CVS: No angina symptoms. No CHF symptoms. No palpitations. No atypical chest pain for CAD. No shortness of breath. No PND, no orthopnea. RESPIRATORY: No cough, no hemoptysis. GI: No nausea, no vomiting. No abdominal pain. : No hematuria. No polyuria. MUSCULOSKELETAL:. No joint swelling. PSYCHIATRIC: Not anxious. No depression. No suicidal thoughts. No homicidal thoughts. SKIN: Intact. No rash. PHYSICAL EXAMINATION: V/S: blood pressure 148/70, respiratory rate 16, heart rate 57, temperature 97.7. HEENT: Normocephalic, atraumatic. Mucosa dry. NECK: Supple. No JVD, no carotid bruit. No lymphadenopathy. LUNGS: Decreased and clear to auscultation. No rales or rhonchi. HEART: S1, S2 normal. No S3. No murmur, gallop or regurgitation. ABDOMEN: Soft, nontender. Bowel sounds active. No rigidity. No rebound or guarding. No CVA tenderness. EXTREMITIES: No clubbing, cyanosis or pedal edema. MUSCULOSKELETAL: No joint swelling. NEUROLOGIC: Awake, alert, oriented times three. No focal deficit. LYMPHATIC: No lymph nodes palpable. SKIN: Intact. LABS: Sodium 142, potassium 4.0, chloride 105, bicarb 26, BUN 12, creatinine 1.0, WBC 5.91, hgb 12.8, hct 37.3, and plt count 150 ASSESSMENT: 1. Bilateral subdural hematoma 2. Dizziness 3. Diabetes 4. Hypertension 5. Dyslipidemia 6. Cervical posthepatic neuralgia 7. Anemia PLAN: 1. Will repeat CAT scan today and MRI brain tomorrow 2. Neuro checks every two hours 3. Fall precautions 4. Check for hypoglycemia Will follow the patient in daily rounds. TIME SPENT: More than 30 minutes MTDD
--- NOTE | 2017-04-01 15:00 | DS ---
DATE OF SERVICE: 03/31/17 FINAL DIAGNOSIS: 1. Subdural holohemispheric subacute subdural hematoma with problems with the left eye. 2. History of diabetes 3. Hypertension 4. Coronary artery disease 5. COPD 6. 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 under the care of Dr. Stephenson. Continue the current medications MEDICATIONS AT DISCHARGE: Neurontin Levemir 50 unit twice a day Xalatan eye drops Lisinopril 20mg PO twice a day Prilosec 20mg PO daily Simvastatin 40mg Po daily NEW PRESCRIPTIONS: None DIET INSTRUCTIONS: Diabetic 1800 ADA diet ACTIVITY: Complete bed rest. SMOKING: Former smoker DISEASE SPECIFIC EDUCATION: Frequent falls Risk of subdural hematoma been discussed with the patient and verbalized understanding. HOSPITAL COURSE: Leroy Zapien who is an 86 year old male came to the emergency room on with dizziness, headache and left eye vision fogginess. CT fo the head was done. ER physician Dr. Thomas. CT showed the left frontal hematoma 1.2cm without any midline shift or any edema. Dr. Westfall Neurosurgeon was approached and he suggested the way the bleed way it looked like mostly subacute. In review of patient not having any neurological problems advised admission to the [facility] and do continuous CAT scans. The patient was admitted to the [facility]. Neuro- checks were done and not having any problems and continued to complain about the left eye fogginess and pain and then started to have redness and drainage from the left eye so antibiotic eye drops were started. MRI was done on Thursday which again showed the subdural holohemispheric hematoma 1.2cm left frontal 0.8 on the right temporal. At that time we again talked to the [facility] on Thursday with Dr. Stephenson and he suggested the transfer of the patient to the [facility] [place] for the higher care in review of subdural hematoma and definitive treatment. TIME SPENT: More than 60 minutes including talking with Dr. Stephenson and will be following with the patient in the office once he comes here for the followup. SHIRA
== END 2017-03-31 16:00 | disposition short-term general hospital (02) | DRG 65 ==
LOC: ED 14:27 → SCU 16:26
PROVIDERS: ADMIT Emergency Medicine; ATTEND Emergency Medicine
DX: I62.02 Nontraumatic subacute subdural hemorrhage (principal); B02.29 Other postherpetic nervous system involvement; R42 Dizziness and giddiness; H53.8 Other visual disturbances; H57.12 Ocular pain, left eye; E11.9 Type 2 diabetes mellitus without complications; R51 Headache; I10 Essential (primary) hypertension; I50.9 Heart failure, unspecified; I25.10 Atherosclerotic heart disease of native coronary artery without angina pectoris; J44.9 Chronic obstructive pulmonary disease, unspecified; D64.9 Anemia, unspecified; R29.6 Repeated falls; R53.1 Weakness; Z87.891 Personal history of nicotine dependence; Z79.4 Long term (current) use of insulin; Z79.899 Other long term (current) drug therapy
CPT/HCPCS: 36415; 80053; 82550; 82962; 83880; 84484; 85025; 85610; 85730; 87081; 93005; 93010; 99284

== ENCOUNTER 2017-03-31 16:07 | Outpatient (CLI) | END 2017-03-31 16:08 | LOC: AMBL 16:07 | PROVIDERS: ATTEND Internal Medicine | DX: I62.00 Nontraumatic subdural hemorrhage, unspecified (principal) ==

== ENCOUNTER 2017-05-06 13:27 | Emergency (ER) ==
[2017-05-06 13:39] VITALS: BP 189/97; TEMP 96.9; BMI 25.0
--- NOTE | 2017-05-06 14:39 | ED.PDOC ---
General ED Provider: Dr. PHAM WOODARD JR Chief Complaint: Non-specific Complaint Stated Complaint: H/A, body aches. Eyes hurt. Sx x 1 month. Hx recent Blood clot on his brain (1 month). Placed on steroids. Follow-up scan at [facility] showed clot shrinking. [ End ]96.9 88 20 94% 189/97 03/16. Steroid inj at Dr Stephenson's office in [place]. took norco at 2pm. htn dm ,back stom surg Time Seen by Physician: 14:39 Information Source: Patient Exam Limitations: No limitations [facility] and Triage Documentation Reviewed and Agree: No Review of Systems - Review Of Systems Constitutional: Reports: Malaise, Weakness Eyes: Reports: No symptoms Ears, Nose, Mouth, Throat: Reports: No symptoms Respiratory: Reports: No symptoms Cardiac: Reports: No symptoms GI: Reports: No symptoms : Reports: No symptoms Musculoskeletal: Reports: Muscle pain, Muscle stiffness Skin: Reports: No symptoms Neurological: Reports: Cognitive dysfunction, Weakness Endocrine: Reports: No symptoms Hematologic/Lymphatic: Reports: No symptoms All Other Systems: Other Past Medical History - Past Medical History Previously Healthy: No Endocrine: Reports: DM 2, Dyslipidemia Cardiovascular: Reports: CAD, Hypertension Respiratory: Reports: COPD Hematological: Reports: Anemia Gastrointestinal: Reports: GERD Genitourinary: Reports: None Neuro/Psych: Reports: Anxiety Musculoskeletal: Reports: Arthritis, Back Pain, Joint Pain Cancer: Reports: None Other Pertinent Past Medical History: Shingles , 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 - Surgical History General Surgical History: Reports: None, Back Surgery, Other (sx stomach sx), Unknown - Family History Family History: Reports: None - Social History Smoking Status: Former smoker Hx Substance Use: No Alcohol Screening: None Physical Exam - Physical Exam Appearance: Well-appearing, Thin Pain Distress: Moderate Eyes: HAYDEE, EOMI, Conjunctiva clear ENT: Ears normal, Nose normal, Oropharynx normal Neck: Supple Respiratory: Airway patent, Breath sounds clear, Breath sounds equal, Respirations nonlabored Cardiovascular: RRR, Pulses normal, No rub, No murmur GI/: Soft, Nontender, No masses, Bowel sounds normal, No Organomegaly Musculoskeletal: Normal strength, ROM intact, No edema, No calf tenderness Skin: Warm, Dry, Normal color Neurological: Sensation intact, Motor intact, Reflexes intact, Cranial nerves intact Critical Care Note - Critical Care Note Total Time (mins): 0 Course - Course Hematology/Chemistry: 05/06/17 15:20 05/06/17 15:20 Orders, Labs, Meds: Lab Review 05/06/17 05/06/17 15:20 15:35 WBC 6.64 RBC 5.05 Hgb 14.8 Hct 42.9 MCV 85.0 MCH 29.3 MCHC 34.5 RDW Coeff of Oj 12.6 Plt Count 173 Immature Gran % (Auto) 0.6 Neut % (Auto) 89.8 Lymph % (Auto) 6.8 L [place] % (Auto) 2.4 Eos % (Auto) 0.2 Baso % (Auto) 0.2 Immature Gran # (Auto) 0.0 Neut # 6.0 Lymph # 0.5 L [place] # 0.2 L Eos # 0.0 Baso # 0.0 Sodium 137 Potassium 4.8 Chloride 99 Carbon Dioxide 25 Anion Gap 17.8 BUN 12 Creatinine 1.08 Estimated GFR (MDRD) 65.00 BUN/Creatinine Ratio 11.11 Glucose 226 H Calcium 10.1 Total Bilirubin 0.58 AST 18 ALT 18 Alkaline Phosphatase 96 Total Protein 7.9 Albumin 4.1 Globulin 3.8 Albumin/Globulin Ratio 1.08 Urine Color Yellow Urine Clarity Clear Urine pH 6.0 Ur Specific [place] 1.015 Urine Protein 1+ Urine Glucose (UA) 2+ Urine Ketones Negative Urine Blood Trace-intact Urine Nitrite Negative Urine Bilirubin Negative Urine Urobilinogen 0.2 Ur Leukocyte Esterase Negative Urine Microscopic RBC 0-2 Urine Microscopic WBC 0-2 Ur Squamous Epith Cells Not present Orders Category Date Time Status CBC W/ AUTO DIFF Stat LAB 05/06/17 15:20 Completed COMPREHENSIVE METABOLIC PANEL Stat LAB 05/06/17 15:20 Completed URINALYSIS C & S IF INDICATED Stat LAB 05/06/17 15:35 Completed Hydrocodone Bit/Acetaminophen [[place] 7.5-325] MEDS 05/06/17 16:00 Discontinued 1 tab PO ONCE STA Medications Discontinued Medications Generic Name Dose Route Start Last Admin Trade Name Freq PRN Reason Stop Dose Admin Acetaminophen/Hydrocodone Bitart 1 tab 05/06/17 16:00 05/06/17 16:04 [place] 7.5-325 PO 05/06/17 16:01 1 tab ONCE STA Administration Vital Signs: Temp Pulse Resp BP Pulse Ox 05/06/17 13:28 96.9 F L 88 20 189/97 H 94 L Departure - Departure Time of Disposition: 16:00 Disposition: HOME SELF-CARE Discharge Problem: Acute viral syndrome Instructions: Viral Syndrome (ED) Condition: Good Pt referred to PMD for follow-up: Yes Additional Instructions: return if fever over 101.0 if unable to keep clear liquids down or if new symptoms [place] for pain increase fluids follow up with neurosurgery as scheduled follow up PMD one week, sooner if not improving Allergies/Adverse Reactions: Allergies No Known Allergies Allergy (Verified 05/06/17 13:39) Home Medications: Ambulatory Orders Omeprazole [Prilosec] 20 mg PO QDAC 08/15/13 Gabapentin 600 mg PO TID 06/19/14 Lisinopril 20 mg PO BID 06/19/14 Simvastatin 20 mg PO DAILY 06/19/14 Latanoprost [Xalatan] 1 drop OP BEDTIME 06/27/14 Insulin Detemir [Levemir] 50 unit SQ BID 10/27/15 Tobramycin 1 ml OP every 4 hours 04/07/17 Hydrocodone Bit/Acetaminophen [[place] 5-325] 1 - 2 tab PO Q6HR PRN #12 tablet
[2017-05-06 15:43] LABS: BILIRUBIN,URINE Negative (NEGATIVE); KETONES,URINE Negative (NEGATIVE); LEUKOCYTE ESTERASE ,URINE Negative (NEGATIVE); NITRITE,URINE Negative (NEGATIVE); PROTEIN,URINE 1+ (NEGATIVE); URINE, BLOOD Trace-intact (NEGATIVE)
[2017-05-06 15:46] LABS: BASOPHILS % (AUTO) 0.2 % (0.0-3.0); EOSINOPHILS % (AUTO) 0.2 % (0.0-7.0); HEMATOCRIT 42.9 % (42.0-52.0); HEMOGLOBIN 14.8 g/dl (14.0-18.0); IMMATURE GRANULOCYTE % (AUTO) 0.6 % (0.0-5.0); LYMPHOCYTES # (AUTO) 0.5 K/uL (0.60-3.4); LYMPHOCYTES % (AUTO) 6.8 (10.0-50.0); MEAN CORPUSCULAR HEMOGLOBIN 29.3 pg (27.0-31.0); MEAN CORPUSCULAR HGB CONC 34.5 (31.8-35.4); MONOCYTES # (AUTO) 0.2 K/uL (0.4-2.0); MONOCYTES % (AUTO) 2.4 (0-10); NEUTROPHILS % (AUTO) 89.8; PLATELET COUNT 173 10^3/uL (140-440); RED BLOOD COUNT 5.05 10^6/ul (4.70-6.10); WHITE BLOOD COUNT 6.64 K/ul (4.2-10.2)
[2017-05-06 15:48] LABS: ADD URINE MICROSCOPIC YES
[2017-05-06 15:48] LABS: ALBUMIN 4.1 g/dL (3.4-5.0); ALBUMIN/GLOBULIN RATIO 1.08; ANION GAP 17.8; BILIRUBIN,TOTAL 0.58 mg/dL (0.00-1.20); BUN/CREATININE RATIO 11.11; CALCIUM 10.1 mg/dL (8.2-10.2); CREATININE 1.08 mg/dL (0.60-1.10); POTASSIUM 4.8 mmol/L (3.5-5.1); TOTAL PROTEIN 7.9 g/dL (5.8-8.1)
[2017-05-06] MEDS ORDERED: NORCO 7.5-325 PO STA (16:00)
== END 2017-05-06 16:40 | disposition home or self-care (01) ==
LOC: ED 13:27
DX: B34.9 Viral infection, unspecified (principal); I10 Essential (primary) hypertension; E11.9 Type 2 diabetes mellitus without complications; E78.5 Hyperlipidemia, unspecified; I25.10 Atherosclerotic heart disease of native coronary artery without angina pectoris; Z79.899 Other long term (current) drug therapy
CPT/HCPCS: 36415; 80053; 81001; 85025; 99283

== ENCOUNTER 2017-05-11 15:50 | Observation (INO) ==
[2017-05-11 15:53] VITALS: BMI 24.3
[2017-05-11] MEDS ORDERED: TYLENOL PO STA (15:56)
[2017-05-11 16:28] LABS: BASOPHILS % (AUTO) 0.3 % (0.0-3.0); EOSINOPHILS # (AUTO) 0.1 K/ul (0.0-0.7); EOSINOPHILS % (AUTO) 0.6 % (0.0-7.0); HEMATOCRIT 40.7 % (42.0-52.0); HEMOGLOBIN 14.1 g/dl (14.0-18.0); IMMATURE GRANULOCYTE % (AUTO) 0.5 % (0.0-5.0); LYMPHOCYTES # (AUTO) 1.5 K/uL (0.60-3.4); LYMPHOCYTES % (AUTO) 17.1 (10.0-50.0); MEAN CORPUSCULAR HEMOGLOBIN 29.3 pg (27.0-31.0); MEAN CORPUSCULAR HGB CONC 34.6 (31.8-35.4); MEAN CORPUSCULAR VOLUME 84.6 fl (80.0-94.0); MONOCYTES # (AUTO) 0.9 K/uL (0.4-2.0); MONOCYTES % (AUTO) 10.4 (0-10); NEUTROPHILS # (AUTO) 6.2 K/ul (2.0-6.9); NEUTROPHILS % (AUTO) 71.1; PLATELET COUNT 161 10^3/uL (140-440); RED BLOOD COUNT 4.81 10^6/ul (4.70-6.10); WHITE BLOOD COUNT 8.67 K/ul (4.2-10.2)
--- NOTE | 2017-05-11 16:28 | CT ---
Exam: CT brain without contrast Clinical indication: Headache with elevated blood pressure. Comparison: Prior MRI dated 03/30/[address] dated 03/29/2017. TECHNIQUE: Axial unenhanced CT images from the skull base through the brain were obtained. Coronal and sagital reformats were performed. Findings: There is further evolution of the bilateral frontal subdural hematomas. On the left there is interv al decrease in thickness measuring 0.7 cm, previously 1.0 cm and the density has further decreased c onsistent with elevation of the hematoma. Along the right frontal that thickness has decreased from 0.7-0.5 cm. Also there is further interval decrease in the density consistent with evolution of th e hematoma. There are no new areas of intra or extra-axial hemorrhage. There is mild to moderate chronic small vessel ischemic changes.There is no evidence of mass, infarc t or midline shift. The ventricles and basilar cisterns are within normal limits. The visualized paranasal sinuses and mastoid air cells are clear. The visualized bony structures are unremarkable. Impression: 1. No acute intracranial abnormality. 2. Further interval reduction in size in evolution of the bilateral frontal subdural hematomas. 3. Mild to moderate chronic small vessel ischemic changes.
[2017-05-11 16:29] LABS: ADD URINE MICROSCOPIC NO; BILIRUBIN,URINE Negative (NEGATIVE); KETONES,URINE Negative (NEGATIVE); LEUKOCYTE ESTERASE ,URINE Negative (NEGATIVE); NITRITE,URINE Negative (NEGATIVE); PH,URINE 5.5 (5-9); PROTEIN,URINE Negative (NEGATIVE); URINE, BLOOD Negative (NEGATIVE)
--- NOTE | 2017-05-11 16:54 | ED.PDOC ---
General ED Provider: Dr. KEN BAIG-ER Chief Complaint: Hypertension Stated Complaint: i think my bp is up--i have "blood clot" in my brain and im on steroids but this started before i got put on steroids Time Seen by Physician: 15:55 Mode of Arrival: Walk-In Information Source: Patient Exam Limitations: No limitations [facility] Nursing and Triage Documentation Reviewed and Agree: Yes Cardiovascular Complaint Exam - Hypertension Complaint/Exam Onset/Duration: today Symptoms Are: Resolved Reported B/P Prior to Arrival: 170/90 Aggravating: Reports: None Alleviating: Reports: None Associated Signs and Symptoms: Reports: Anxiety, Recent stress, Headache. Denies: Chest pain, Vision changes, Numbness, Tingling, Weakness, Dizziness, Short of air, Swelling Cardiac Risk Factors: Reports: Hypertension Recent Change in Medications: No A/V [place]: No Papilledema Present: No JVD Present: No Carotid Bruit Present: No Femoral Pulses Bounding: Yes Quality Indicator For Non-Traumatic Chest Pain/Syncope: EKG Performed Review of Systems - Review Of Systems Constitutional: Reports: No symptoms Eyes: Reports: No symptoms Ears, Nose, Mouth, Throat: Reports: No symptoms Respiratory: Reports: No symptoms Cardiac: Reports: No symptoms GI: Reports: No symptoms : Reports: No symptoms Musculoskeletal: Reports: No symptoms Skin: Reports: No symptoms Neurological: Reports: Headache Endocrine: Reports: No symptoms Hematologic/Lymphatic: Reports: No symptoms All Other Systems: Reviewed and Negative Past Medical History - Past Medical History Previously Healthy: No Endocrine: Reports: DM 2, Dyslipidemia Cardiovascular: Reports: CAD, Hypertension Respiratory: Reports: COPD Hematological: Reports: Anemia Gastrointestinal: Reports: GERD Genitourinary: Reports: None Neuro/Psych: Reports: Anxiety Musculoskeletal: Reports: Arthritis, Back Pain, Joint Pain Cancer: Reports: None Other Pertinent Past Medical History: Shingles , 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 - Surgical History General Surgical History: Reports: None, Back Surgery, Other (sx stomach sx), Unknown - Family History Family History: Reports: None - Social History Smoking Status: Former smoker Hx Substance Use: No Alcohol Screening: None Lives: With family Physical Exam - Physical Exam Appearance: Well-appearing, No pain distress, Well-nourished Eyes: HAYDEE ENT: Ears normal Neck: Supple Respiratory: Airway patent, Breath sounds clear, Breath sounds equal, Respirations nonlabored Cardiovascular: RRR, Pulses normal, No rub, No murmur GI/: Soft, Nontender, No masses, Bowel sounds normal, No Organomegaly Musculoskeletal: Normal strength Skin: Warm, Dry, Normal color Neurological: Sensation intact, Alert, Oriented Psychiatric: Affect appropriate, Mood appropriate, Anxious Interpretation - Radiology Interpretation Radiology Interpretation By: Radiologist Radiology Results: Positive ("further reduction of frontal subdural hematomas') Exam Interpreted: CT Scan Re-Evaluation - Re-Evaluation Time of Re-Evaluation: 17:26 Status: Improved Vital Signs Stable: Yes Pain Level: 0 Appearance: NAD Lungs: Clear Skin: Warm and Dry Neuro: Alert and Oriented X3 CV: RRR Physician Notification - Case Discussed Physician Notified: dr bourne Time of Notification: 17:26 Critical Care Note - Critical Care Note Total Time (mins): 0 Course - Course Hematology/Chemistry: 05/11/17 16:15 05/11/17 16:15 Orders, Labs, Meds: Lab Review 05/11/17 05/11/17 16:00 16:15 WBC 8.67 RBC 4.81 Hgb 14.1 Hct 40.7 L MCV 84.6 MCH 29.3 MCHC 34.6 RDW Coeff of Oj 12.3 Plt Count 161 Immature Gran % (Auto) 0.5 Neut % (Auto) 71.1 Lymph % (Auto) 17.1 [place] % (Auto) 10.4 H Eos % (Auto) 0.6 Baso % (Auto) 0.3 Immature Gran # (Auto) 0.0 Neut # 6.2 Lymph # 1.5 [place] # 0.9 Eos # 0.1 Baso # 0.0 ESR 10 Sodium 139 Potassium 4.6 Chloride 101 Carbon Dioxide 25 Anion Gap 17.6 BUN 24 H Creatinine 1.12 H Estimated GFR (MDRD) 62.00 BUN/Creatinine Ratio 21.42 Glucose 293 H Calcium 9.6 Total Bilirubin 0.36 AST 14 L ALT 24 Alkaline Phosphatase 89 Total Creatine Kinase 39 Troponin I < 0.0100 Total Protein 6.6 Albumin 3.6 Globulin 3.0 Albumin/Globulin Ratio 1.20 TSH 0.797 Free T4 1.00 Urine Color Yellow Urine Clarity Clear Urine pH 5.[address] 1.020 Urine Protein Negative Urine Glucose (UA) 2+ Urine Ketones Negative Urine Blood Negative Urine Nitrite Negative Urine Bilirubin Negative Urine Urobilinogen 0.2 Ur Leukocyte Esterase Negative Orders Category Date Time Status EKG-(ED ONLY) Stat CARDIO 05/11/17 15:52 Completed [employer] Developer [ED FORCER MAKER APPLIED] .ONCE EMERGENCY 05/11/17 15:53 Active CBC W/ AUTO DIFF Stat LAB 05/11/17 16:15 Completed COMPREHENSIVE METABOLIC PANEL Stat LAB 05/11/17 16:15 Completed CREATINE KINASE Stat LAB 05/11/17 16:15 Completed ESR Stat LAB 05/11/17 16:15 Completed FREE T4 (FREE THYROXINE) Stat LAB 05/11/17 16:15 Completed THYROID STIMULATING HORMONE Stat LAB 05/11/17 16:15 Completed TROPONIN I Stat LAB 05/11/17 16:15 Completed UA [URINALYSIS C & S IF INDICATED] Stat LAB 05/11/17 16:00 Completed Acetaminophen [Tylenol] MEDS 05/11/17 15:56 Discontinued 650 mg PO ONCE STA CT HEAD W/O CONTRAST Stat RADS 05/11/17 15:54 Completed Medications Discontinued Medications Generic Name Dose Route Start Last Admin Trade Name Hairq PRN Reason Stop Dose Admin Acetaminophen 650 mg 05/11/17 15:56 05/11/17 16:28 Tylenol PO 05/11/17 15:57 650 mg ONCE STA Administration Vital Signs: Temp Pulse Resp BP Pulse Ox 05/11/17 15:50 97.9 F 64 18 165/70 H 95 NHAN Risk Score NHAN Risk Score: Risk Score Odds of by 30D 0 0.1 (0.1-0.2) 1 0.3 (0.2-0.3) 2 0.4 (0.3-0.5) 3 0.7 (0.6-0.9) 4 1.2 (1.0-1.5) 5 2.2 (1.9-2.6) 6 3.0 (2.5-3.6) 7 4.8 (3.8-6.1) Departure - Departure Time of Disposition: 17:26 Disposition: PLACED OBSERVATION Discharge Problem: Hypertensive urgency Instructions: Chronic Hypertension (ED) Condition: Good Pt referred to PMD for follow-up: Yes Allergies/Adverse Reactions: Allergies No Known Allergies Allergy (Verified 05/11/17 15:53) Home Medications: Ambulatory Orders Omeprazole [Prilosec] 20 mg PO QDAC 08/15/13 Gabapentin 600 mg PO TID 06/19/14 Lisinopril 20 mg PO BID 06/19/14 Simvastatin 20 mg PO DAILY 06/19/14 Latanoprost [Xalatan] 1 drop OP BEDTIME 06/27/14 Insulin Detemir [Levemir] 50 unit SQ BID 10/27/15 Tobramycin 1 ml OP every 4 hours 04/07/17 Hydrocodone Bit/Acetaminophen [[place] 5-325] 1 - 2 tab PO Q6HR PRN #12 tablet Transfer Form Completed: No Disposition Discussed With: Patient, Family
[2017-05-11 17:03] LABS: ESR INTERNAL QC INTERNAL QC VALID
[2017-05-11 17:09] LABS: ALANINE AMINOTRANSFERASE 24 U/L (12-78); ALBUMIN 3.6 g/dL (3.4-5.0); ALKALINE PHOSPHATASE 89 U/L (56-119); ANION GAP 17.6; ASPARTATE AMINO TRANSFERASE 14 U/L (15-37); BILIRUBIN,TOTAL 0.36 mg/dL (0.00-1.20); BLOOD UREA NITROGEN 24 mg/dL (7-18); BUN/CREATININE RATIO 21.42; CALCIUM 9.6 mg/dL (8.2-10.2); CARBON DIOXIDE 25 mmol/L (23-31); CHLORIDE 101 mmol/L (98-107); CREATINE KINASE 39 U/L; CREATININE 1.12 mg/dL (0.60-1.10); GLUCOSE 293 mg/dL (82-115); POTASSIUM 4.6 mmol/L (3.5-5.1); SODIUM 139 mmol/L (136-145); TOTAL PROTEIN 6.6 g/dL (5.8-8.1)
[2017-05-11] MEDS ORDERED: CATAPRES PO PRN (17:29)
[2017-05-11] MEDS ORDERED: TRANDATE IVP PRN (17:30)
[2017-05-11] MEDS ORDERED: NORCO 5-325 PO PRN (17:31)
[2017-05-11 17:43] LABS: ERYTHROCYTE SEDIMENTATION RATE 10 mm/hr (0-15)
[2017-05-11] MEDS ORDERED: TOBREX 0.3% OP SCH (18:00)
[2017-05-11] MEDS ORDERED: NON-FORMULARY MEDICATION (Lisinopril [Lisinopril] 20 MG) PO SCH ×22 (21:00)
[2017-05-11] MEDS ORDERED: LEVEMIR SUBCUT SCH (21:00)
[2017-05-11] MEDS ORDERED: NON-FORMULARY MEDICATION (Gabapentin [Gabapentin] 600 MG) PO SCH (21:00)
[2017-05-11] MEDS ORDERED: XALATAN OP SCH (21:00)
[2017-05-11] MEDS ORDERED: METHYLPREDNISOLONE 4 MG PO SCH ×2 (22:15→23:45)
[2017-05-11] MEDS ORDERED: HYDROCODONE BIT PO PRN (23:57)
[2017-05-11] MEDS ORDERED: ACETAMINOPHEN PO PRN (23:57)
[2017-05-12 05:17] LABS: BASOPHILS # (AUTO) 0.1 K/uL (0-0.2); BASOPHILS % (AUTO) 0.6 % (0.0-3.0); EOSINOPHILS # (AUTO) 0.1 K/ul (0.0-0.7); EOSINOPHILS % (AUTO) 1.3 % (0.0-7.0); HEMATOCRIT 39.1 % (42.0-52.0); HEMOGLOBIN 13.5 g/dl (14.0-18.0); LYMPHOCYTES # (AUTO) 1.5 K/uL (0.60-3.4); LYMPHOCYTES % (AUTO) 17.8 (10.0-50.0); MEAN CORPUSCULAR HEMOGLOBIN 29.2 pg (27.0-31.0); MEAN CORPUSCULAR HGB CONC 34.5 (31.8-35.4); MEAN CORPUSCULAR VOLUME 84.4 fl (80.0-94.0); MONOCYTES # (AUTO) 0.9 K/uL (0.4-2.0); MONOCYTES % (AUTO) 11.1 (0-10); NEUTROPHILS # (AUTO) 5.7 K/ul (2.0-6.9); NEUTROPHILS % (AUTO) 68.2; PLATELET COUNT 167 10^3/uL (140-440); RED BLOOD COUNT 4.63 10^6/ul (4.70-6.10); WHITE BLOOD COUNT 8.32 K/ul (4.2-10.2)
[2017-05-12 05:38] LABS: ALBUMIN 3.4 g/dL (3.4-5.0); ALBUMIN/GLOBULIN RATIO 1.17; ANION GAP 14.9; BILIRUBIN,TOTAL 0.53 mg/dL (0.00-1.20); BUN/CREATININE RATIO 23.33; CALCIUM 9.7 mg/dL (8.2-10.2); CREATININE 0.9 mg/dL (0.60-1.10); POTASSIUM 3.9 mmol/L (3.5-5.1); TOTAL PROTEIN 6.3 g/dL (5.8-8.1)
[2017-05-12] MEDS ORDERED: PRILOSEC PO SCH (06:30)
[2017-05-12] MEDS ORDERED: NON-FORMULARY MEDICATION (Omeprazole [Prilosec] 20 MG) PO SCH ×22 (06:30)
[2017-05-12] MEDS ORDERED: METHYLPREDNISOLONE 4 MG PO SCH ×3 (06:30→11:00)
[2017-05-12] MEDS ORDERED: HYDROCODONE BIT PO PRN (07:58)
[2017-05-12] MEDS ORDERED: ACETAMINOPHEN PO PRN (07:58)
[2017-05-12] MEDS ORDERED: HUMULIN R SUBCUT PRN (08:50)
[2017-05-12] MEDS ORDERED: NORVASC PO SCH (09:00)
[2017-05-12] MEDS ORDERED: NON-FORMULARY MEDICATION (Lisinopril [Lisinopril] 20 MG) PO SCH ×44 (09:00)
[2017-05-12] MEDS ORDERED: INSULIN DETEMIR 50 UNIT SQ SCH ×2 (09:00)
[2017-05-12] MEDS ORDERED: NON-FORMULARY MEDICATION (Gabapentin [Gabapentin] 600 MG) PO SCH ×2 (09:00)
[2017-05-12] MEDS ORDERED: LIBRIUM PO SCH (09:00)
[2017-05-12] MEDS ORDERED: NON-FORMULARY MEDICATION (Amlodipine Besylate [Norvasc] 5 MG) PO SCH ×22 (09:00)
[2017-05-12] MEDS ORDERED: NON-FORMULARY MEDICATION (Cyanocobalamin (Vitamin B-12) [B-12] 500 MCG) PO SCH ×22 (09:00)
[2017-05-12] MEDS ORDERED: NON-FORMULARY MEDICATION (Cyanocobalamin (Vitamin B-12) [Vitamin B-12] 500 MCG) PO SCH ×22 (09:00)
[2017-05-12] MEDS ORDERED: ZOCOR PO SCH (09:00)
[2017-05-12 16:14] VITALS: BP 125/70; TEMP 97.5
[2017-05-12] MEDS ORDERED: LATANOPROST OP SCH ×42 (21:00)
[2017-05-13] MEDS ORDERED: NON-FORMULARY MEDICATION (Omeprazole [Prilosec] 20 MG) PO SCH ×22 (06:30)
--- NOTE | 2017-05-13 14:42 | PN ---
DATE OF SERVICE: 05/11/17 SUBJECTIVE: The patient was seen and examined in the emergency room. The patient came to the emergency room as the his blood pressure been elevated. The patient has recent history of intracranial subdural hematoma for which the patient has been Dr. Beckett and has been getting steroids for the upper respiratory infection, checked the blood pressure it was around 160 to 190 systolic and the patient was worried and came to the emergency room. The patient was seen by Dr. Dodson. In the Emergency room the blood pressure [address] of the head showed the decreasing subdural hematoma. At that time in review of his elevated blood pressure and headache the patient was admitted for the observation. REVIEW OF SYSTEMS: CONSTITUTIONAL: No fever, no chills. HEENT: Normal. Headache. Neck pain. ENDOCRINE: No weight gain, no weight loss. CVS: No angina symptoms. No CHF symptoms. No palpitations. No atypical chest pain for CAD. No shortness of breath. No PND, no orthopnea. RESPIRATORY: Some coughing and congestion, no hemoptysis. GI: No nausea, no vomiting. No abdominal pain. : No hematuria. No polyuria. MUSCULOSKELETAL:. No joint swelling. PSYCHIATRIC: Anxious. No depression. No suicidal thoughts. No homicidal thoughts. SKIN: Intact. No rash. PHYSICAL EXAMINATION: V/S: Blood pressure 165/70, respiratory rate 18, heart rate 64 and temperature 97.9 with saturation 95%. HEENT: Normocephalic, atraumatic. Mucosa dry. NECK: Supple. No JVD, no carotid bruit. No lymphadenopathy. LUNGS: Decreased and clear to auscultation. No rales or rhonchi. HEART: S1, S2 normal. No S3. No murmur, gallop or regurgitation. ABDOMEN: Soft, nontender. Bowel sounds active. No rigidity. No rebound or guarding. No CVA tenderness. EXTREMITIES: No clubbing, cyanosis or pedal edema. Right thumb amputated. MUSCULOSKELETAL: No joint swelling. NEUROLOGIC: Awake, alert, oriented times three. No focal deficit. LYMPHATIC: No lymph nodes palpable. SKIN: Intact. LABS: WBC 8.67, hgb 14.1, hct 40.7, plt count 161, sodium 139, potassium 4.6, chloride 101, bicarb 25, BUN 24, creatinine 1.12, glucose 293. ASSESSMENT: 1. Hypertension, uncontrolled 2. Elevated blood sugars, diabetes uncontrolled 3. History of intracranial bleed which is stable 4. COPD 5. Hypertension 6. Dyslipidemia PLAN: 1. Admit patient to the observation 2. Continue home medication 3. Accu-checks with coverage 4. Trandate 20mg IV push Q 12 hours if systolic blood pressure is more than 180. TIME SPENT: More than 55-60 minutes MTDD
--- NOTE | 2017-05-13 14:50 | PN ---
DATE OF SERVICE: 05/12/17 SUBJECTIVE: The patient was admitted with uncontrolled hypertension. Since admission blood pressure 160/73, 152/78 and today morning 135/74. The patient says that he gets very much anxious when he checks the blood pressure and if it is high, worried about the bleed. Dizziness is still present on and off. No falls or head injuries again. REVIEW OF SYSTEMS: CONSTITUTIONAL: No fever, no chills. HEENT: Normal. ENDOCRINE: No weight gain, no weight loss. CVS: No angina symptoms. No CHF symptoms. No palpitations. No atypical chest pain for CAD. No shortness of breath. No PND, no orthopnea. RESPIRATORY: No cough, no hemoptysis. GI: No nausea, no vomiting. No abdominal pain. : No hematuria. No polyuria. MUSCULOSKELETAL:. No joint swelling. PSYCHIATRIC: Not anxious. No depression. No suicidal thoughts. No homicidal thoughts. SKIN: Intact. No rash. PHYSICAL EXAMINATION: V/S: Blood pressure 135/74, respiratory rate 20, heart rate 56, temperature 97.7. HEENT: Normocephalic, atraumatic. Mucosa dry. NECK: Supple. No JVD, no carotid bruit. No lymphadenopathy. LUNGS: Decreased and clear to auscultation. No rales or rhonchi. HEART: S1, S2 normal. No S3. No murmur, gallop or regurgitation. ABDOMEN: Soft, nontender. Bowel sounds active. No rigidity. No rebound or guarding. No CVA tenderness. EXTREMITIES: No clubbing, cyanosis or pedal edema. MUSCULOSKELETAL: No joint swelling. NEUROLOGIC: Awake, alert, oriented times three. No focal deficit. LYMPHATIC: No lymph nodes palpable. SKIN: Intact. LABS: Sodium 142, potassium 3.9, chloride 101, bicarb 30, BUN 21, creatinine 0.90, WBC 8.32, hgb 13.5, hct 39.1, plt count 167. ASSESSMENT: 1. Hypertension, uncontrolled 2. Diabetes 3. Recent subdural hematoma seen by Dr. Beckett as outpatient. The patient has followup with him again 4. COPD 5. Posthepatic cervical neuralgia PLAN: 1. Librium 5mg twice a day 2. Keep checking the blood pressure 3. Accu-checks with coverage 4. If the blood pressure been steady the patient will be discharged home. TIME SPENT: More than 30 minutes MTDD
--- NOTE | 2017-07-02 15:28 | SSS ---
DATE OF SERVICE: 05/11/17 (ADMITTED) 05/12/17 (DISCHARGED) CHIEF COMPLAINT: Elevated blood pressure. HISTORY OF PRESENT ILLNESS: This is an 86-year-old male who was recently in the hospital for the subdural hematoma but the patient has been having problems with elevated blood pressure and worried that he is going to bleed again. He started having headache and feels very bad and dizzy. He came to the emergency room, seen by Dr. Dodson. CT of the head was done in the emergency room; showing no acute intracranial abnormality. Further interval reduction in the size of the subdural hematoma was seen. At that time, in view of elevated blood pressure and recent subdural hematoma, the patient was admitted to the hospital for observation overnight. REVIEW OF SYSTEMS: CONSTITUTIONAL: No night sweats. No fatigue, malaise, lethargy. No fever or chills. HEENT: Eyes: No visual changes. No eye pain. No eye discharge. ENT: No runny nose. No epistaxis. No sinus pain. No sore throat. No odynophagia. No ear pain. No congestion. RESPIRATORY: No cough, no congestion. No hemoptysis. No shortness of breath. CARDIOVASCULAR: No angina symptoms. No CHF symptoms. No atypical chest pain for CAD. No palpitations. No orthopnea. GASTROINTESTINAL: No abdominal pain. No nausea or vomiting. No diarrhea or constipation. No hematemesis. No hematochezia. GENITOURINARY: No dysuria. No hematuria. No obstructive symptoms. No discharge. No pain. No significant abnormal bleeding. MUSCULOSKELETAL: No musculoskeletal pain. No joint swelling. NEUROLOGICAL: Awake, alert, oriented to time, place and person. Positive for headache, dizziness. Elevated blood pressure. No neck pain. No syncope. No seizures. PSYCHIATRIC: Not anxious. No depression. No suicidal thoughts. No homicidal thoughts. SKIN: No rash. No lesions. No wounds. ENDOCRINE: No unexplained weight loss. No weight gain. HEMATOLOGIC/LYMPHATIC: No anemia. No purpura. No petechiae. No prolonged or excessive bleeding. No palpable lymph nodes. PAST MEDICAL HISTORY: CAD Dyslipidemia Hypertension DJD spine COPD Diabetes Recent subdural hematoma PAST SURGICAL HISTORY: Cataract surgery Hearing aids Cholecystectomy Appendectomy Partial colectomy Back surgery Tonsillectomy Appendectomy PERSONAL/FAMILY HISTORY/SOCIAL HISTORY: Smoker but cut down lately; , lives with . Family History: Significant for cancer. PHYSICAL EXAMINATION: VITAL SIGNS: BP 122/60, respiratory rate 20, heart rate 52, temperature 98.2, saturation 96 on room air. HEENT: Head normocephalic, atraumatic. Mucosa dry. Eyes: Extraocular muscles are intact. Pupils are equal, round and reactive to light and accommodation. Ears: No lesions. Nose appeared normal. Throat: No exudate or erythema. NECK: Supple. No JVD, no carotid bruit. No lymphadenopathy or thyromegaly. LUNGS: Decreased breath sounds with basilar crackles. Clear to auscultation. Percussion note normal. Chest symmetrical. HEART: S1, S2, no S3. No murmurs. No cyanosis or clubbing. No ascites. Pulses: Dorsalis pedis and posterior tibial pulses +1 to +2 both sides. ABDOMEN: Soft. Nontender. Bowel sounds active. No CVA tenderness. No mass felt. EXTREMITIES: No cyanosis, clubbing or pedal edema. Full range of motion of all extremities, equal. NEUROLOGIC: The patient is awake and alert. No focal deficit. Cranial nerves II through XII are grossly intact. No headache, no double vision or headache. SKIN: Not dry. Intact. Turgor - normal. LYMPHATIC: No palpable lymph nodes/no lymphedema. MUSCULOSKELETAL: Normal joints with no swelling. Muscle tone is normal. Old/present records reviewed Office records reviewed. ALLERGIES: NKDA MEDICATIONS: (HOME) Prilosec Neurontin [place] Norvasc Methylprednisolone Vitamin B12 Xalatan Lisinopril Levemir LABS/EKG'S/X-RAY/ECHO/ABG: White count 8.67, hemoglobin 14.1, hematocrit 40.7, platelet count 161. Sodium 139, potassium 4.6, chloride 101, bicarb 25, BUN 24, creatinine 1.12. Sugars 293. UA negative. PROGRESS NOTES: See EMR. BRIEF HOSPITAL COURSE: The patient is admitted to the hospital with uncontrolled blood pressure. Labetalol and Clonidine was discontinued, home medication. Lisinopril 20 mg b.i.d. was started, Norvasc 5 mg p.o. daily. The blood pressure started getting better, did not have any problem. The patient has been going through some stressful times at home because of decreased income suddenly because of the new changes in the [place] Government, worried about that and worried about how to get his medications, reassured the patient and advised that we are going to write $4.00 [facility] prescriptions so he will not have any problems affording the medications. He verbalized understanding and blood pressure became normal. He did not have any problems. BP 122/60, 125/70. At that time, the patient was discharged home. ASSESSMENT: 1. HYPERTENSIVE URGENCY 2. RECENT SUBDURAL HEMATOMA 3. DIABETES, LABILE 4. COPD 5. HYPERTENSION 6. ANXIETY DISORDER 7. DEPRESSION 8. DJD SPINE PLAN: 1. Discharge the patient home. 2. Lifestyle modification. 3. Weight loss. 4. Diet discussed - no salt diet. 5. Follow with the neurologist in [place] for subdural hematoma problem. 6. Librium 10 mg twice a day for anxiety. 7. Keep checking blood pressure. 8. Risk of bleed discussed. TIME SPENT: More than 65 minutes. [facility]
== END 2017-05-12 14:35 | disposition home or self-care (01) ==
LOC: ED 15:50 → MEDSURG A 17:31
PROVIDERS: ADMIT Emergency Medicine; ATTEND Emergency Medicine
DX: I16.0 Hypertensive urgency (principal); I62.00 Nontraumatic subdural hemorrhage, unspecified; E11.65 Type 2 diabetes mellitus with hyperglycemia; F43.0 Acute stress reaction; R51 Headache; R42 Dizziness and giddiness; I10 Essential (primary) hypertension; J44.9 Chronic obstructive pulmonary disease, unspecified; F41.8 Other specified anxiety disorders; M47.9 Spondylosis, unspecified; B02.29 Other postherpetic nervous system involvement; Z79.4 Long term (current) use of insulin; Z79.899 Other long term (current) drug therapy
CPT/HCPCS: 36415; 80053; 81001; 82550; 82962; 84439; 84443; 84484; 85025; 85651; 93005; 93010; 99217; 99220; 99284

== ENCOUNTER 2017-05-18 12:28 | Inpatient (IN) ==
[2017-05-18] MEDS ORDERED: TYLENOL PO PRN (13:07)
[2017-05-18] MEDS ORDERED: NORCO 5-325 PO PRN (13:10)
[2017-05-18 13:22] VITALS: BMI 25.1
--- NOTE | 2017-05-18 14:04 | CT ---
EXAM: CT of the abdomen pelvis without contrast History: Abdominal pain and diarrhea. Comparison: CT abdomen pelvis 08/22/2016 Technique: Multiplanar CT images through the abdomen pelvis were obtained without the administration of IV contrast Findings: Subsegmental atelectasis seen at the lung bases. No acute osseous abnormalities. No perip ancreatic inflammation. Atherosclerotic vascular calcifications. Adrenal glands are unremarkable. Right renal cyst again noted. No renal stones and no hydronephrosis. No bowel obstruction. Colonic diverticulosis. Small amount of pelvic fluid. The appendix is not seen. Surgical clips seen withi n the right abdomen. There is mild inflammation seen within the right lower quadrant of the abdomen. Nondilated fluid filled loops of small bowel. Prostate is not enlarged. No bladder wall thickenin g. No focal liver or splenic lesions. No discrete gallstones identified by CT. Impression: 1. Mild inflammation within the right lower quadrant is nonspecific. The appendix is not seen. 2. Possible mild gastroenteritis. No bowel obstruction. 3. Colonic diverticulosis. 4. Small amount of pelvic fluid.
[2017-05-18] MEDS: NEURONTIN PO SCH ×2 (14:45→20:57)
[2017-05-18] MEDS: NORVASC PO SCH (14:45)
[2017-05-18] MEDS: FLAGYL 500 MG/100 ML 500 MG in PREMIX 100 ML NS 1 BAG IV SCH ×2 (14:46→20:57)
[2017-05-18] MEDS: SODIUM CHLORIDE 0.9%-KCL 20 MEQ 1,000 ML IV SCH (14:46)
[2017-05-18 14:49] LABS: BASOPHILS % (AUTO) 0.5 % (0.0-3.0); EOSINOPHILS # (AUTO) 0.2 K/ul (0.0-0.7); EOSINOPHILS % (AUTO) 3.3 % (0.0-7.0); HEMATOCRIT 41.1 % (42.0-52.0); IMMATURE GRANULOCYTE % (AUTO) 0.8 % (0.0-5.0); LYMPHOCYTES # (AUTO) 0.8 K/uL (0.60-3.4); LYMPHOCYTES % (AUTO) 13.2 (10.0-50.0); MEAN CORPUSCULAR HEMOGLOBIN 29.4 pg (27.0-31.0); MEAN CORPUSCULAR HGB CONC 34.1 (31.8-35.4); MEAN CORPUSCULAR VOLUME 86.2 fl (80.0-94.0); MONOCYTES # (AUTO) 0.6 K/uL (0.4-2.0); MONOCYTES % (AUTO) 10.2 (0-10); NEUTROPHILS # (AUTO) 4.5 K/ul (2.0-6.9); PLATELET COUNT 120 10^3/uL (140-440); RED BLOOD COUNT 4.77 10^6/ul (4.70-6.10); WHITE BLOOD COUNT 6.29 K/ul (4.2-10.2)
[2017-05-18] MEDS ORDERED: NON-FORMULARY MEDICATION (Gabapentin [Gabapentin] 600 MG) PO SCH (15:00)
[2017-05-18 15:06] LABS: ALBUMIN 3.3 g/dL (3.4-5.0); ALBUMIN/GLOBULIN RATIO 1.1; ANION GAP 10.4; BILIRUBIN,TOTAL 0.45 mg/dL (0.00-1.20); CALCIUM 9.2 mg/dL (8.2-10.2); POTASSIUM 4.4 mmol/L (3.5-5.1); TOTAL PROTEIN 6.3 g/dL (5.8-8.1)
[2017-05-18 19:50] LABS: TROPONIN I 0.015 ng/ml (0.0000-0.4000)
[2017-05-18] MEDS: XALATAN OP SCH (20:57)
[2017-05-18] MEDS: ZESTRIL PO SCH (20:57)
[2017-05-18] MEDS: LIBRIUM PO SCH (20:57)
[2017-05-18] MEDS: LEVEMIR SUBCUT SCH (20:58)
[2017-05-18] MEDS ORDERED: NON-FORMULARY MEDICATION (Lisinopril [Lisinopril] 20 MG) PO SCH ×22 (21:00)
[2017-05-19 03:20] LABS: BASOPHILS % (AUTO) 0.4 % (0.0-3.0); EOSINOPHILS # (AUTO) 0.3 K/ul (0.0-0.7); EOSINOPHILS % (AUTO) 3.7 % (0.0-7.0); HEMATOCRIT 36.7 % (42.0-52.0); HEMOGLOBIN 12.4 g/dl (14.0-18.0); IMMATURE GRANULOCYTE % (AUTO) 0.7 % (0.0-5.0); LYMPHOCYTES # (AUTO) 0.9 K/uL (0.60-3.4); LYMPHOCYTES % (AUTO) 13.1 (10.0-50.0); MEAN CORPUSCULAR HEMOGLOBIN 28.8 pg (27.0-31.0); MEAN CORPUSCULAR HGB CONC 33.8 (31.8-35.4); MEAN CORPUSCULAR VOLUME 85.3 fl (80.0-94.0); MONOCYTES # (AUTO) 0.8 K/uL (0.4-2.0); MONOCYTES % (AUTO) 11.7 (0-10); NEUTROPHILS # (AUTO) 4.7 K/ul (2.0-6.9); NEUTROPHILS % (AUTO) 70.4; PLATELET COUNT 114 10^3/uL (140-440); WHITE BLOOD COUNT 6.73 K/ul (4.2-10.2)
[2017-05-19 03:39] LABS: ALBUMIN 2.9 g/dL (3.4-5.0); ALBUMIN/GLOBULIN RATIO 0.94; ANION GAP 10.9; BILIRUBIN,TOTAL 0.39 mg/dL (0.00-1.20); BUN/CREATININE RATIO 11.11; CREATININE 0.81 mg/dL (0.60-1.10); POTASSIUM 3.9 mmol/L (3.5-5.1)
[2017-05-19 03:46] LABS: TROPONIN I 0.021 ng/ml (0.0000-0.4000)
[2017-05-19] MEDS: FLAGYL 500 MG/100 ML 500 MG in PREMIX 100 ML NS 1 BAG IV SCH ×3 (04:11→20:44)
[2017-05-19] MEDS: PRILOSEC PO SCH (05:40)
[2017-05-19] MEDS: SODIUM CHLORIDE 0.9%-KCL 20 MEQ 1,000 ML IV SCH (05:40)
[2017-05-19] MEDS: NORVASC PO SCH (08:27)
[2017-05-19] MEDS: LIBRIUM PO SCH ×2 (08:27→20:44)
[2017-05-19] MEDS: ZESTRIL PO SCH ×2 (08:27→20:44)
[2017-05-19] MEDS: LEVEMIR SUBCUT SCH ×2 (08:27→20:45)
[2017-05-19] MEDS: NEURONTIN PO SCH ×3 (08:27→20:44)
[2017-05-19] MEDS: NON-FORMULARY MEDICATION (Cyanocobalamin (Vitamin B-12) [B-12] 500 MCG) PO SCH ×22 (08:41)
--- NOTE | 2017-05-19 14:46 | PN ---
DATE OF SERVICE: 05/19/17 SUBJECTIVE: The patient was admitted from the [facility] yesterday. The patient was admitted for the acute gastroenteritis. CAT scan done which showed the gastroenteritis. Had some bowel movements yesterday but not today. REVIEW OF SYSTEMS: CONSTITUTIONAL: No fever, no chills. HEENT: Normal. ENDOCRINE: No weight gain, no weight loss. CVS: No angina symptoms. No CHF symptoms. No palpitations. No atypical chest pain for CAD. No shortness of breath. No PND, no orthopnea. RESPIRATORY: No cough, no hemoptysis. GI: No nausea, no vomiting. Abdominal discomfort but pain. Diarrhea : No hematuria. No polyuria. MUSCULOSKELETAL:. No joint swelling. PSYCHIATRIC: Not anxious. No depression. No suicidal thoughts. No homicidal thoughts. SKIN: Intact. No rash. PHYSICAL EXAMINATION: V/S: Blood pressure 127/60, respiratory rate 14, heart rate 62, temperature 96.7 with saturation 93% on the room air. HEENT: Normocephalic, atraumatic. Mucosa dry. Pallor positive. No icterus. NECK: Supple. No JVD, no carotid bruit. No lymphadenopathy. LUNGS: Decreased and clear to auscultation. No rales or rhonchi. HEART: S1, S2 normal. No S3. No murmur, gallop or regurgitation. ABDOMEN: Soft, discomfort all over. Bowel sounds active. No rigidity. No rebound or guarding. No CVA tenderness. EXTREMITIES: No clubbing, cyanosis or pedal edema. Right thumb status post amputation. MUSCULOSKELETAL: No joint swelling. NEUROLOGIC: Awake, alert, oriented times three. No focal deficit. LYMPHATIC: No lymph nodes palpable. SKIN: Intact. LABS: WBC 6.73, hgb 12.4, hct 36.7, plt count 114, sodium 142, potassium 3.9, chloride 110, bicarb 25, BUN 9, creatinine 0.81 and glucose 80 ASSESSMENT: 1. Acute gastroenteritis 2. Hypertension, labile 3. Diabetes with mild hypoglycemia 4. Cervical radiculopathy 5. Post hepatic neuralgia 6. Recent history of Holo subdural Hematoma which is better, seen Dr. Beckett neurosurgeon as outpatient PLAN: 1. Continue Flagyl 2. Decrease the IV fluids to the 40ml per hour 3. Accu-checks with coverage 4. Cardiac diet 5. Daily I&O's Will follow the patient in daily rounds. TIME SPENT: More than 35 minutes MTDTeresa
[2017-05-19] MEDS: XALATAN OP SCH (20:45)
[2017-05-19] MEDS ORDERED: ROBITUSSIN DM SYRUP PO STA (23:52)
[2017-05-20] MEDS: FLAGYL 500 MG/100 ML 500 MG in PREMIX 100 ML NS 1 BAG IV SCH ×3 (04:30→20:16)
[2017-05-20] MEDS: SODIUM CHLORIDE 0.9%-KCL 20 MEQ 1,000 ML IV SCH ×2 (04:31→13:22)
[2017-05-20 04:54] LABS: BASOPHILS % (AUTO) 0.3 % (0.0-3.0); EOSINOPHILS # (AUTO) 0.3 K/ul (0.0-0.7); EOSINOPHILS % (AUTO) 2.9 % (0.0-7.0); HEMATOCRIT 38.5 % (42.0-52.0); HEMOGLOBIN 13.3 g/dl (14.0-18.0); IMMATURE GRANULOCYTE % (AUTO) 0.8 % (0.0-5.0); LYMPHOCYTES % (AUTO) 10.9 (10.0-50.0); MEAN CORPUSCULAR HEMOGLOBIN 29.4 pg (27.0-31.0); MEAN CORPUSCULAR HGB CONC 34.5 (31.8-35.4); MEAN CORPUSCULAR VOLUME 85.2 fl (80.0-94.0); MONOCYTES % (AUTO) 11.1 (0-10); NEUTROPHILS # (AUTO) 6.8 K/ul (2.0-6.9); PLATELET COUNT 125 10^3/uL (140-440); RED BLOOD COUNT 4.52 10^6/ul (4.70-6.10); WHITE BLOOD COUNT 9.12 K/ul (4.2-10.2)
[2017-05-20 05:22] LABS: ALBUMIN 3.1 g/dL (3.4-5.0); ALBUMIN/GLOBULIN RATIO 0.97; ANION GAP 10.6; BILIRUBIN,TOTAL 0.48 mg/dL (0.00-1.20); BUN/CREATININE RATIO 9.09; CALCIUM 9.3 mg/dL (8.2-10.2); CREATININE 0.88 mg/dL (0.60-1.10); POTASSIUM 3.6 mmol/L (3.5-5.1); TOTAL PROTEIN 6.3 g/dL (5.8-8.1)
[2017-05-20] MEDS: PRILOSEC PO SCH (05:33)
[2017-05-20] MEDS: LEVEMIR SUBCUT SCH ×2 (09:45→20:18)
[2017-05-20] MEDS: LIBRIUM PO SCH ×2 (09:46→20:17)
[2017-05-20] MEDS: NEURONTIN PO SCH ×3 (09:46→20:17)
[2017-05-20] MEDS: ZESTRIL PO SCH ×2 (09:46→20:17)
[2017-05-20] MEDS: NORVASC PO SCH (09:46)
[2017-05-20] MEDS: NON-FORMULARY MEDICATION (Cyanocobalamin (Vitamin B-12) [B-12] 500 MCG) PO SCH ×22 (09:47)
[2017-05-20] MEDS: DUONEB NEB SCH ×3 (11:10→23:13)
[2017-05-20] MEDS: XALATAN OP SCH (20:16)
[2017-05-20] MEDS ORDERED: ROBITUSSIN DM SYRUP PO STA (21:33)
[2017-05-21] MEDS: FLAGYL 500 MG/100 ML 500 MG in PREMIX 100 ML NS 1 BAG IV SCH ×3 (04:25→21:10)
[2017-05-21 04:40] LABS: BASOPHILS % (AUTO) 0.2 % (0.0-3.0); EOSINOPHILS # (AUTO) 0.2 K/ul (0.0-0.7); EOSINOPHILS % (AUTO) 1.9 % (0.0-7.0); HEMATOCRIT 38.6 % (42.0-52.0); HEMOGLOBIN 13.2 g/dl (14.0-18.0); IMMATURE GRANULOCYTE % (AUTO) 0.5 % (0.0-5.0); LYMPHOCYTES # (AUTO) 0.7 K/uL (0.60-3.4); MEAN CORPUSCULAR HEMOGLOBIN 29.1 pg (27.0-31.0); MEAN CORPUSCULAR HGB CONC 34.2 (31.8-35.4); MONOCYTES % (AUTO) 11.5 (0-10); NEUTROPHILS # (AUTO) 6.4 K/ul (2.0-6.9); NEUTROPHILS % (AUTO) 76.9; PLATELET COUNT 125 10^3/uL (140-440); RED BLOOD COUNT 4.54 10^6/ul (4.70-6.10); WHITE BLOOD COUNT 8.26 K/ul (4.2-10.2)
[2017-05-21 04:58] LABS: ALBUMIN 3.1 g/dL (3.4-5.0); ALBUMIN/GLOBULIN RATIO 0.91; ANION GAP 13.8; BILIRUBIN,TOTAL 0.41 mg/dL (0.00-1.20); BUN/CREATININE RATIO 8.69; CALCIUM 9.4 mg/dL (8.2-10.2); CREATININE 0.92 mg/dL (0.60-1.10); POTASSIUM 3.8 mmol/L (3.5-5.1); TOTAL PROTEIN 6.5 g/dL (5.8-8.1)
[2017-05-21] MEDS: DUONEB NEB SCH ×4 (05:10→23:11)
[2017-05-21] MEDS: PRILOSEC PO SCH (05:36)
[2017-05-21] MEDS ORDERED: MORPHINE 2 MG/ML SYRINGE IVP STA (08:47)
[2017-05-21] MEDS: NEURONTIN PO SCH ×3 (08:54→21:11)
[2017-05-21] MEDS: ZESTRIL PO SCH ×2 (08:54→21:11)
[2017-05-21] MEDS: LIBRIUM PO SCH ×2 (08:54→21:11)
[2017-05-21] MEDS: NORVASC PO SCH (08:55)
[2017-05-21] MEDS: NON-FORMULARY MEDICATION (Cyanocobalamin (Vitamin B-12) [B-12] 500 MCG) PO SCH ×22 (09:00)
[2017-05-21] MEDS: LEVEMIR SUBCUT SCH ×2 (09:12→21:10)
--- NOTE | 2017-05-21 11:03 | PN ---
DATE OF SERVICE: 05/20/17 SUBJECTIVE: The patient was admitted with acute gastroenteritis, elevated blood pressure. Blood pressure been still up and down, 159/68 and 172/80.Patient's blood pressure is up and down today morning the blood pressure is elevated. Diarrhea has resolved and abdominal discomfort is present. No headache, nausea or vomiting. REVIEW OF SYSTEMS: CONSTITUTIONAL: No fever, no chills. HEENT: Normal. ENDOCRINE: No weight gain, no weight loss. CVS: No angina symptoms. No CHF symptoms. No palpitations. No atypical chest pain for CAD. No shortness of breath. No PND, no orthopnea. RESPIRATORY: No cough, no hemoptysis. GI: No nausea, no vomiting. No abdominal pain. : No hematuria. No polyuria. MUSCULOSKELETAL:. No joint swelling. PSYCHIATRIC: Not anxious. No depression. No suicidal thoughts. No homicidal thoughts. SKIN: Intact. No rash. PHYSICAL EXAMINATION: V/S: Blood pressure 172/80, respiratory rate 20, heart rate 68, temperature 97.9. HEENT: Normocephalic, atraumatic. Mucosa dry. NECK: Supple. No JVD, no carotid bruit. No lymphadenopathy. LUNGS: Decreased and clear to auscultation. No rales or rhonchi. HEART: S1, S2 normal. No S3. No murmur, gallop or regurgitation. ABDOMEN: Soft, Discomfort all over. Bowel sounds hypoactive. No rigidity. No rebound or guarding. No CVA tenderness. EXTREMITIES: No clubbing, cyanosis or pedal edema. MUSCULOSKELETAL: No joint swelling. NEUROLOGIC: Awake, alert, oriented times three. No focal deficit. LYMPHATIC: No lymph nodes palpable. SKIN: Intact. LABS: WBC 9.12, hgb 13.3, hct 28.5, plt count 125, sodium 141, potassium 3.6, chloride 108, bicarb 26, BUN 8, creatinine 0.88. ASSESSMENT: 1. Acute gastroenteritis 2. Hypertension, labile 3. Recent subdural hematoma which has been stable 4. History of COPD 5. Diabetes Mellitus 6. Hypertension 7. Dyslipidemia PLAN: 1. Will decrease the Lantus 40mg twice a day as patient's sugars in the morning are being 80-90 2. Continue the IV Flagyl 3. Stop the IV fluids 4. Increase the Norvasc to 10mg daily in the afternoon TIME SPENT: More than 35 minutes MTDD
[2017-05-21] MEDS: SODIUM CHLORIDE 0.9%-KCL 20 MEQ 1,000 ML IV SCH (12:12)
--- NOTE | 2017-05-21 15:17 | CT ---
EXAM: CT BRAIN HISTORY: Severe headache, visual changes TECHNIQUE: CT brain without intravenous contrast. 5-mm axial sections with Reformations. 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 The left subdural collection mainly involves the frontal level with grea test coronal dimension of 0.68 cm also not noticeably changed. There is no obvious midline shift or recent large vessel distribution ischemic infarction. There is moderate periventricular and deep whit e matter low attenuation which although nonspecific is suggestive of chronic microvascular ischemic c hange. No acute ventriculomegaly or tonsillar herniation. The basal cisterns are patent. Since the previous exam, the left maxillary sinus has become completely opacified. The mastoid air cells are a erated. No skull fracture is seen. IMPRESSION: 1. 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 No noticeable intracranial ch robert. 2. Interval development of opacification within the left maxillary sinus consistent with sinusitis.
[2017-05-21] MEDS: XALATAN OP SCH (21:10)
[2017-05-22] MEDS: DUONEB NEB SCH ×4 (05:11→23:00)
[2017-05-22] MEDS: PRILOSEC PO SCH (05:45)
[2017-05-22] MEDS: FLAGYL 500 MG/100 ML 500 MG in PREMIX 100 ML NS 1 BAG IV SCH (05:45)
[2017-05-22 05:55] LABS: BASOPHILS % (AUTO) 0.5 % (0.0-3.0); EOSINOPHILS # (AUTO) 0.2 K/ul (0.0-0.7); EOSINOPHILS % (AUTO) 4.1 % (0.0-7.0); HEMATOCRIT 37.5 % (42.0-52.0); HEMOGLOBIN 12.7 g/dl (14.0-18.0); IMMATURE GRANULOCYTE % (AUTO) 0.3 % (0.0-5.0); LYMPHOCYTES # (AUTO) 1.2 K/uL (0.60-3.4); LYMPHOCYTES % (AUTO) 20.7 (10.0-50.0); MEAN CORPUSCULAR HEMOGLOBIN 28.9 pg (27.0-31.0); MEAN CORPUSCULAR HGB CONC 33.9 (31.8-35.4); MEAN CORPUSCULAR VOLUME 85.4 fl (80.0-94.0); MONOCYTES # (AUTO) 0.9 K/uL (0.4-2.0); NEUTROPHILS # (AUTO) 3.4 K/ul (2.0-6.9); NEUTROPHILS % (AUTO) 58.4; PLATELET COUNT 129 10^3/uL (140-440); RED BLOOD COUNT 4.39 10^6/ul (4.70-6.10); WHITE BLOOD COUNT 5.81 K/ul (4.2-10.2)
[2017-05-22 06:15] LABS: ALBUMIN/GLOBULIN RATIO 0.97; ANION GAP 13.4; BILIRUBIN,TOTAL 0.35 mg/dL (0.00-1.20); BUN/CREATININE RATIO 9.19; CALCIUM 9.3 mg/dL (8.2-10.2); CREATININE 0.87 mg/dL (0.60-1.10); POTASSIUM 3.4 mmol/L (3.5-5.1); TOTAL PROTEIN 6.1 g/dL (5.8-8.1)
[2017-05-22] MEDS: NORVASC PO SCH (09:23)
[2017-05-22] MEDS: ZESTRIL PO SCH ×2 (09:23→21:08)
[2017-05-22] MEDS: LIBRIUM PO SCH ×2 (09:23→21:08)
[2017-05-22] MEDS: NEURONTIN PO SCH ×3 (09:23→21:07)
[2017-05-22] MEDS: NON-FORMULARY MEDICATION (Cyanocobalamin (Vitamin B-12) [B-12] 500 MCG) PO SCH ×22 (09:56)
[2017-05-22] MEDS: LEVEMIR SUBCUT SCH (09:56)
--- NOTE | 2017-05-22 10:24 | PCM.PROG ---
Attending Provider: ATTENDING PROVIDER: [facility] DATE OF SERVICE: 05/22/17 SUBJECTIVE: This 86 year old WHITE/ M was hospitalized 05/18/17. The patient is sitting on the side of bed. He is having problems with vision and has poor short- term memory; vision is worse than on admission. CT scan showed acute on chronic subdural hematoma. Sugars are low with Levemir 40 b.i.d. REVIEW OF SYSTEMS: CONSTITUTIONAL: No fever, no chills. ENDOCRINE: No weight loss or weight gain. HEENT: No sinus drainage, no sore throat. CVS: No angina symptoms. No CHF symptoms. No palpitations. No atypical chest pain for CAD. No shortness of breath. RESPIRATORY: No cough, no hemoptysis. GI: No melena. No abdominal pain. No nausea, no vomiting. : No hematuria. No polyuria. SKIN: No rash. No wounds. MUSCULOSKELETAL: No pain. RN QUALITY: Shortterm memory problem. No blackout, no dizziness. No headache. Blurred vision. PSYCHIATRIC: Not anxious; no depression. No suicidal thoughts. No homicidal thoughts. PHYSICAL EXAMINATION: GENERAL: Lying in bed in no distress. VITAL SIGNS: Temperature 97.2 F, Pulse 74, Respiratory Rate 23, BP 142/69, Pulse Ox 96% HEENT: Normocephalic, atraumatic. Eyes: Blurry vision. Mucosa is dry, pallor positive. NECK: No JVP, no carotid bruit. No lymphadenopathy. CARDIAC: S1, S2, no S3. No murmur, gallop or regurgitation. LUNGS: Clear to auscultation. ABDOMEN: Soft, non-tender. Bowel sounds active. No rigidity, guarding or CVA tenderness. EXTREMITIES: No clubbing, cyanosis or edema. NEUROLOGIC: Awake, alert and oriented. Has short-term memory loss. LYMPHATIC: No palpable lymph nodes SKIN: Not dry. Intact. MUSCULOSKELETAL: No joint swelling. LAB REVIEW: 05/22/17 05:30 05/22/17 05:30 05/22/17 05:30: Sodium 143, Potassium 3.4 L, Chloride 107, Carbon Dioxide 26, Anion Gap 13.4, BUN 8, Creatinine 0.87, Estimated GFR (MDRD) 84.00, BUN/ Creatinine Ratio 9.19, Glucose 55 L, Calcium 9.3, Total Bilirubin 0.35, AST 16, ALT 18, Alkaline Phosphatase 68, Total Protein 6.1, Albumin 3.0 L, Globulin 3.1 , Albumin/Globulin Ratio 0.97 05/22/17 05:30: WBC 5.81, RBC 4.39 L, Hgb 12.7 L, Hct 37.5 L, MCV 85.4, MCH 28.9 , MCHC 33.9, RDW Coeff of Oj 13.0, Plt Count 129 L, Immature Gran % (Auto) 0.3 , Neut % (Auto) 58.4, Lymph % (Auto) 20.7, [place] % (Auto) 16.0 H, Eos % (Auto) 4.1, Baso % (Auto) 0.5, Immature Gran # (Auto) 0.0, Neut # 3.4, Lymph # 1.2, [place] # 0.9, Eos # 0.2, Baso # 0.0 ASSESSMENT: 1. Severe headache with CT scan showing acute on chronic subdural hematoma 2. Hypoglycemia 3. Gastroenteritis 4. Hypertension labile 5. Diabetes mellitus 6. Dyslipidemia 7. 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 MRI of brain 2. Wll fax CT scan report to Dr. Beckett 3. Accu-Checks with coverage 4. Levemir 70 units daily Plan and coordination of the patient's care discussed in the presence of [employer]er and nurse. CONDITION: Stable SCRIBED BY: BOB LOUIS, Cutter Inspector scribed while in presence of service performed by Dr. AZAEL [facility] on 05/22/17 ([id number])
--- NOTE | 2017-05-22 12:57 | PN ---
DATE OF SERVICE: 05/21/17 SUBJECTIVE: The patient was admitted with the uncontrolled hypertension and gastroenteritis. The patient been feeling OK but today morning he complains that he is not feeling at all good, has more headache then usual and blood pressure is also elevated. No diarrhea now. REVIEW OF SYSTEMS: CONSTITUTIONAL: No fever, no chills. HEENT: Normal. ENDOCRINE: No weight gain, no weight loss. CVS: No angina symptoms. No CHF symptoms. No palpitations. No atypical chest pain for CAD. No shortness of breath. No PND, no orthopnea. RESPIRATORY: No cough, no hemoptysis. GI: No nausea, no vomiting. No abdominal pain. : No hematuria. No polyuria. MUSCULOSKELETAL:. No joint swelling. PSYCHIATRIC: Not anxious. No depression. No suicidal thoughts. No homicidal thoughts. SKIN: Intact. No rash. PHYSICAL EXAMINATION: V/S: Blood pressure 151/79, respiratory rate 20, heart rate 93 with temperature 99.1 with saturation 90%. HEENT: Normocephalic, atraumatic. Mucosa dry. NECK: Supple. No JVD, no carotid bruit. No lymphadenopathy. LUNGS: Decreased and clear to auscultation. No rales or rhonchi. HEART: S1, S2 normal. No S3. No murmur, gallop or regurgitation. ABDOMEN: Soft, nontender. Bowel sounds active. No rigidity. No rebound or guarding. No CVA tenderness. EXTREMITIES: No clubbing, cyanosis or pedal edema. MUSCULOSKELETAL: No joint swelling. Right thumb amputation. NEUROLOGIC: Awake, alert, oriented times three. No focal deficit. LYMPHATIC: No lymph nodes palpable. SKIN: Intact. Dry LABS: WBC 8.26, hgb 13.2, hct 38.6, plt count 125, sodium 143, potassium 3.8, chloride 106, bicarb 27, BUN 8, creatinine 0.92 and glucose is 61. ASSESSMENT: 1. Hypoglycemia 2. Intractable headache, rule out worsening of the bleed 3. Gastroenteritis, better 4. Hypertension, labile 5. Diabetes 6. Dyslipidemia 7. History of Subdural hematoma PLAN: 1. CT of the head 2. Decrease the Levemir 3. Accu-checks with the coverage 4. Morphine 2mg 5. Continue to monitor the blood pressure Will follow the patient in daily rounds. TIME SPENT: More than 35 minutes MTDD
--- NOTE | 2017-05-22 14:12 | MRI ---
EXAM: MRI brain without IV contrast. DATE: 05/22/2017. HISTORY: Bilateral hematomas. TECHNIQUE: Sagittal T1W, axial T2W, axial FLAIR, axial T1W, axial DWI, and coronal T2W GRE sequences of the brain were obtained using 1.5 Kesha magnet. No IV contrast. COMPARISON: CT head 05/21/2017. MRI brain 30 March 2017. FINDINGS: The lateral ventricles, temporal tips, and third ventricle appear disproportionally large. Transverse dimension across both lateral ventricles is 4 cm. Transverse dimension across the third ventricle is 7 mm. Sylvian fissures and many frontal / parietal lobe sulci are enlarged due to invo lutional change. Aqueduct of Sylvius appears patent. Fourth ventricle is not enlarged. No midline shift or herniation is apparent. No acute infarct, acute hemorrhage or neoplasm is identified. Bila teral subdural hematomas (5 mm maximum transverse on the right, 7.4 mm maximum transverse in the left ) are slightly smaller compared to March 2017. Heterogeneity of signal within the subdural hematomas indicates recent superimposed on older hemorrhages. Small, confluent rim of T2W/FLAIR hyperintensity is observed in the white matter abutting each lateral ventricle. Multiple 2-6 mm, T2W/FLAIR bright foci are scattered within the lópez radiata, centrum semiovale and subcortical white matter bilatera lly. The mixon - white matter differentiation is normal. Areas of T2W GRE dark signal within each bas al ganglia appear benign. All The 7th/8th cranial nerve complexes, cerebellopontine angles, and visi ble cervical spinal cord are normal. There is no cerebellar tonsillar ectopia. The pituitary gland is small in size, with CSF filling part of the pituitary fossa. Corpus callosum body is bowed upward due to ventricular prominence. Both vertebral arteries cause mild lateral compression on the cervic omedullary junction; however, there is no signal abnormality within the spinal cord or nerve roots at this level. Flow voids are present in the major intracranial arteries and in the dural venous sinus es. No aneurysm, AVM or dural venous sinus thrombosis is apparent. Appearance of the lens of each e ye suggests prior cataract surgery. No other orbit abnormality is identified. The mastoid air cells are unremarkable. There is extensive mucosal thickening and complete opacification of the left maxi llary sinus. Multiple left ethmoid air cells are opacified or partially opacified. No neck mass or lymphadenopathy is detected. No calvarial neoplasm or acute fracture is evident. IMPRESSIONS: 1. Bilateral nearly holohemispheric subdural hematomas demonstrating recent and chronic blood produc ts are slightly smaller in diameter compared to March 2017. 2. Central > peripheral cerebral atrophy vs chronic hydrocephalus superimposed on atrophy. 3. Mild/moderate supratentorial small vessel disease. 4. Mild, benign bilateral basal ganglia mineral deposition. 5. No acute infarct, intra-axial hemorrhage, or neoplasm.. 6. Left maxillary and ethmoid sinusitis, worse since March 2017. 7. Small pituitary gland.
[2017-05-22] MEDS: FLAGYL PO SCH ×2 (15:12→21:08)
[2017-05-22] MEDS: SODIUM CHLORIDE 0.9%-KCL 20 MEQ 1,000 ML IV SCH (18:12)
[2017-05-22] MEDS ORDERED: LEVEMIR SUBCUT SCH (21:00)
[2017-05-22] MEDS: XALATAN OP SCH (21:07)
[2017-05-23] MEDS: DUONEB NEB SCH ×4 (05:17→23:04)
[2017-05-23 05:35] LABS: BASOPHILS % (AUTO) 0.3 % (0.0-3.0); EOSINOPHILS # (AUTO) 0.3 K/ul (0.0-0.7); EOSINOPHILS % (AUTO) 4.7 % (0.0-7.0); HEMATOCRIT 35.7 % (42.0-52.0); IMMATURE GRANULOCYTE % (AUTO) 0.5 % (0.0-5.0); LYMPHOCYTES # (AUTO) 0.7 K/uL (0.60-3.4); LYMPHOCYTES % (AUTO) 12.2 (10.0-50.0); MEAN CORPUSCULAR HEMOGLOBIN 28.8 pg (27.0-31.0); MEAN CORPUSCULAR HGB CONC 33.6 (31.8-35.4); MEAN CORPUSCULAR VOLUME 85.8 fl (80.0-94.0); MONOCYTES # (AUTO) 0.8 K/uL (0.4-2.0); MONOCYTES % (AUTO) 13.6 (0-10); NEUTROPHILS # (AUTO) 3.9 K/ul (2.0-6.9); NEUTROPHILS % (AUTO) 68.7; PLATELET COUNT 136 10^3/uL (140-440); RED BLOOD COUNT 4.16 10^6/ul (4.70-6.10); WHITE BLOOD COUNT 5.72 K/ul (4.2-10.2)
[2017-05-23 06:04] LABS: ALBUMIN 2.9 g/dL (3.4-5.0); ALBUMIN/GLOBULIN RATIO 0.88; ANION GAP 12.5; BILIRUBIN,TOTAL 0.27 mg/dL (0.00-1.20); BUN/CREATININE RATIO 11.9; CALCIUM 9.4 mg/dL (8.2-10.2); CREATININE 0.84 mg/dL (0.60-1.10); POTASSIUM 4.5 mmol/L (3.5-5.1); TOTAL PROTEIN 6.2 g/dL (5.8-8.1)
[2017-05-23] MEDS: PRILOSEC PO SCH (06:11)
[2017-05-23] MEDS: FLAGYL PO SCH ×3 (06:12→20:50)
[2017-05-23] MEDS: LIBRIUM PO SCH ×2 (08:12→20:51)
[2017-05-23] MEDS: NORVASC PO SCH (08:12)
[2017-05-23] MEDS: ZESTRIL PO SCH ×2 (08:12→20:51)
[2017-05-23] MEDS: NEURONTIN PO SCH ×3 (08:13→20:51)
[2017-05-23] MEDS: NON-FORMULARY MEDICATION (Cyanocobalamin (Vitamin B-12) [B-12] 500 MCG) PO SCH ×22 (08:14)
[2017-05-23] MEDS ORDERED: LEVEMIR SUBCUT SCH (17:00)
[2017-05-23] MEDS: SODIUM CHLORIDE 0.9%-KCL 20 MEQ 1,000 ML IV SCH (18:01)
[2017-05-23] MEDS: XALATAN OP SCH (20:51)
[2017-05-23] MEDS: LEVEMIR SUBCUT SCH (20:51)
[2017-05-24 05:06] LABS: BASOPHILS % (AUTO) 0.6 % (0.0-3.0); EOSINOPHILS # (AUTO) 0.3 K/ul (0.0-0.7); EOSINOPHILS % (AUTO) 6.5 % (0.0-7.0); HEMATOCRIT 35.4 % (42.0-52.0); HEMOGLOBIN 11.7 g/dl (14.0-18.0); IMMATURE GRANULOCYTE % (AUTO) 0.6 % (0.0-5.0); LYMPHOCYTES % (AUTO) 18.1 (10.0-50.0); MEAN CORPUSCULAR HEMOGLOBIN 28.8 pg (27.0-31.0); MEAN CORPUSCULAR HGB CONC 33.1 (31.8-35.4); MEAN CORPUSCULAR VOLUME 87.2 fl (80.0-94.0); MONOCYTES # (AUTO) 0.8 K/uL (0.4-2.0); MONOCYTES % (AUTO) 14.7 (0-10); NEUTROPHILS # (AUTO) 3.1 K/ul (2.0-6.9); NEUTROPHILS % (AUTO) 59.5; PLATELET COUNT 135 10^3/uL (140-440); RED BLOOD COUNT 4.06 10^6/ul (4.70-6.10); WHITE BLOOD COUNT 5.25 K/ul (4.2-10.2)
[2017-05-24] MEDS: DUONEB NEB SCH ×4 (05:16→23:08)
[2017-05-24 05:30] LABS: ALBUMIN 2.9 g/dL (3.4-5.0); ALBUMIN/GLOBULIN RATIO 0.94; BILIRUBIN,TOTAL 0.25 mg/dL (0.00-1.20); BUN/CREATININE RATIO 15.29; CALCIUM 9.3 mg/dL (8.2-10.2); CREATININE 0.85 mg/dL (0.60-1.10)
[2017-05-24] MEDS: PRILOSEC PO SCH (05:32)
[2017-05-24] MEDS: FLAGYL PO SCH ×3 (05:32→20:56)
[2017-05-24] MEDS: NON-FORMULARY MEDICATION (Cyanocobalamin (Vitamin B-12) [B-12] 500 MCG) PO SCH ×22 (08:04)
[2017-05-24] MEDS: LIBRIUM PO SCH ×2 (08:04→20:55)
[2017-05-24] MEDS: ZESTRIL PO SCH ×2 (08:05→20:55)
[2017-05-24] MEDS: NORVASC PO SCH (08:05)
[2017-05-24] MEDS: NEURONTIN PO SCH ×3 (08:05→20:55)
[2017-05-24] MEDS: SODIUM CHLORIDE 0.9%-KCL 20 MEQ 1,000 ML IV SCH (17:59)
[2017-05-24] MEDS: XALATAN OP SCH (20:56)
[2017-05-24] MEDS: LEVEMIR SUBCUT SCH (20:56)
[2017-05-24 23:21] VITALS: TEMP 97
[2017-05-25] MEDS: DUONEB NEB SCH ×2 (05:02→11:10)
[2017-05-25] MEDS: FLAGYL PO SCH (05:38)
[2017-05-25] MEDS: PRILOSEC PO SCH (05:38)
[2017-05-25 05:55] LABS: ALBUMIN/GLOBULIN RATIO 0.97; BILIRUBIN,TOTAL 0.3 mg/dL (0.00-1.20); BUN/CREATININE RATIO 14.63; CALCIUM 9.6 mg/dL (8.2-10.2); CREATININE 0.82 mg/dL (0.60-1.10); TOTAL PROTEIN 6.1 g/dL (5.8-8.1)
[2017-05-25 06:02] LABS: BASOPHILS % (AUTO) 0.5 % (0.0-3.0); EOSINOPHILS # (AUTO) 0.3 K/ul (0.0-0.7); EOSINOPHILS % (AUTO) 5.9 % (0.0-7.0); HEMATOCRIT 35.5 % (42.0-52.0); HEMOGLOBIN 12.1 g/dl (14.0-18.0); IMMATURE GRANULOCYTE % (AUTO) 1.1 % (0.0-5.0); LYMPHOCYTES # (AUTO) 1.5 K/uL (0.60-3.4); LYMPHOCYTES % (AUTO) 27.8 (10.0-50.0); MEAN CORPUSCULAR HGB CONC 34.1 (31.8-35.4); MEAN CORPUSCULAR VOLUME 85.1 fl (80.0-94.0); MONOCYTES # (AUTO) 0.6 K/uL (0.4-2.0); MONOCYTES % (AUTO) 11.4 (0-10); NEUTROPHILS # (AUTO) 2.9 K/ul (2.0-6.9); NEUTROPHILS % (AUTO) 53.3; PLATELET COUNT 140 10^3/uL (140-440); RED BLOOD COUNT 4.17 10^6/ul (4.70-6.10); WHITE BLOOD COUNT 5.46 K/ul (4.2-10.2)
[2017-05-25] MEDS: NON-FORMULARY MEDICATION (Cyanocobalamin (Vitamin B-12) [B-12] 500 MCG) PO SCH ×22 (08:25)
[2017-05-25] MEDS: NEURONTIN PO SCH (08:25)
[2017-05-25] MEDS: NORVASC PO SCH (08:25)
[2017-05-25] MEDS: LIBRIUM PO SCH (08:25)
[2017-05-25] MEDS: ZESTRIL PO SCH (08:26)
[2017-05-25 10:39] VITALS: BP 136/68
--- NOTE | 2017-05-25 10:46 | DI ---
EXAM: Two views of the chest. History: Chest congestion. Comparison: Chest radiograph 03/28/2017, chest CT 08/22/2016 Findings: Heart size is within normal limits. Atherosclerotic vascular calcifications. Bilateral i nterstitial thickening and bibasilar reticular interstitial changes similar to the prior study. No f ocal consolidated pneumonia. No overt pulmonary edema. No appreciable pleural fluid and no pneumoth orax. No acute osseous abnormalities. Prominent anterior osteophytes in the thoracic spine again no nathaniel. Impression: Bilateral interstitial thickening and bibasilar reticular opacities suggesting fibrosis. Recommend further evaluation with high-resolution chest CT.
--- NOTE | 2017-05-26 10:52 | DS ---
DATE OF SERVICE: 05/25/17 FINAL DIAGNOSIS: 1. Hypertension, labile 2. Status post hypoglycemia, Levemir dose been changed 3. Holohemispheric subdural hematoma, some acute areas, clinically stable, follows up with Dr. Beckett 06/02 4. Diabetes, labile 5. Hypertension, labile 6. COPD 7. Dyslipidemia 8. Osteoarthritis 9. DJD spine, post hepatic neuralgia DISCHARGE INSTRUCTIONS: Discharge the patient home. Followup with Dr. Beckett 06/02 as scheduled. Followup in the [facility] in 06/01. Keep checking the blood pressure. Fall precaution and stroke risk been discussed. Continue the rest of the home medication. MEDICATIONS AT DISCHARGE: Librium 10mg PO twice a day Vitamin B12 Neurontin 600mg three times a day Hydrocodone 1 tablet PO twice a day Xalatan eye drops, one drop at bedtime Lisinopril 20mg PO twice a day Prilosec 20mg PO daily NEW PRESCRIPTIONS: Levemir 40 units Norvasc 10mg from 5mg DIET INSTRUCTIONS: Cardiac and healthy ACTIVITY: As much as tolerated. Fall risk been discussed. Can be more active dependant upon how patient feels. SMOKING: Former smoker DISEASE SPECIFIC EDUCATION: Hypoglycemia Subdural hematoma been discussed with the patient and the patient's in detail HOSPITAL COURSE: Leroy Zapien who is an 86 year old male came to the [facility] with the worsening of the headache and not able to feel good. In review of his recent subdural hematoma and severe diarrhea and gastroenteritis. His blood pressure was 160/74. At that time he was admitted to the hospital and started on the IV fluids. CT of abdomen and pelvis obtained for the diarrhea. Mild inflammation within the right lower quadrant is nonspecific, possibly gastroenteritis. The patient sugars were dropped and Levemir has been adjusted some 50 unit twice a day to 70 units daily. CAT scan showed the acute on chronic bleed. MRI was done which showed again the similar findings will followup with Dr. Beckett office with those results they suggested as there is no acute clinical problems, they will go ahead and see him as outpatient within one week to 10 days as per the January and the patient got the appointment on the 06/02. Meanwhile the sugars were getting better with the Levemir of 40 daily units. No falling, no dizziness , blurry vision did not improve and the patient started coughing. Chest x-ray was done which did show the chronic scaring. We will be seeing the patient as outpatient followup. TIME SPENT: MORE THAN 50 MINUTES MTDTeresa
--- NOTE | 2017-05-26 11:00 | PN ---
DATE OF SERVICE: 05/24/17 SUBJECTIVE: Sugars are still dropping to 60's and 80's. He is on the Levemir 50mg. The patient's is in the room and says that he is still stressed out and having been some coughing and congestion. No fever or chills. Worried about pneumonia. Otherwise vision changes are stable and not getting worse. REVIEW OF SYSTEMS: CONSTITUTIONAL: No fever, no chills. HEENT: Normal. ENDOCRINE: No weight gain, no weight loss. CVS: No angina symptoms. No CHF symptoms. No palpitations. No atypical chest pain for CAD. No shortness of breath. No PND, no orthopnea. RESPIRATORY: No cough, no hemoptysis. GI: No nausea, no vomiting. No abdominal pain. : No hematuria. No polyuria. MUSCULOSKELETAL:. No joint swelling. PSYCHIATRIC: Not anxious. No depression. No suicidal thoughts. No homicidal thoughts. SKIN: Intact. No rash. PHYSICAL EXAMINATION: V/S: Blood pressure 134/74, respiratory rate 18, heart rate 63, saturation 97% on room air and temperature 97.5. HEENT: Normocephalic, atraumatic. Mucosa dry. Pallor positive. No icterus. NECK: Supple. No JVD, no carotid bruit. No lymphadenopathy. LUNGS: Clear to auscultation. No rales or rhonchi. HEART: S1, S2 normal. No S3. No murmur, gallop or regurgitation. ABDOMEN: Soft, nontender. Bowel sounds active. No rigidity. No rebound or guarding. No CVA tenderness. EXTREMITIES: No clubbing, cyanosis or pedal edema. Left thumb amputation. MUSCULOSKELETAL: No joint swelling. NEUROLOGIC: Awake, alert, oriented times three. No focal deficit. LYMPHATIC: No lymph nodes palpable. SKIN: Intact. LABS: Sodium 142, potassium 4.0, chloride 107, bicarb 29, BUN 13, creatinine 0.85, WBC 5.25, hgb 11.7, hct 35.4, plt count 135. ASSESSMENT: 1. Hypoglycemia 2. Bilateral nearly holohemispheric subdural hematomas, recent and chronic per MRI. The patient has followup with Dr. Beckett tomorrow 3. Diabetes 4. COPD 5. Status post gastroenteritis 6. Labile hypertension PLAN: 1. Decrease the Levemir to 40units 2. Chest x-ray 3. Out of bed to chair activity as tolerated Will follow the patient in daily rounds. TIME SPENT: More than 35 minutes MTDD
--- NOTE | 2017-05-26 11:10 | PN ---
DATE OF SERVICE: 05/23/17 SUBJECTIVE: The patient was admitted with the hypertension, uncontrolled and hyperglycemia and worsening dizziness. He recently had a subdural hematoma for which the patient has seen the neurologist. Blood sugars have been up and down, right now the patient is having hypoglycemic episodes; 86 and 54 and Levemir is being adjusted. He has been stressed out as patient having some financial troubles. REVIEW OF SYSTEMS: CONSTITUTIONAL: No fever, no chills. HEENT: Normal. ENDOCRINE: No weight gain, no weight loss. CVS: No angina symptoms. No CHF symptoms. No palpitations. No atypical chest pain for CAD. No shortness of breath. No PND, no orthopnea. RESPIRATORY: No cough, no hemoptysis. GI: No nausea, no vomiting. No abdominal pain. : No hematuria. No polyuria. MUSCULOSKELETAL:. No joint swelling. PSYCHIATRIC: Not anxious. No depression. No suicidal thoughts. No homicidal thoughts. SKIN: Intact. No rash. PHYSICAL EXAMINATION: V/S: Blood pressure 132/69, respiratory rate 18, heart rate 57 and temperature 97.6 and saturation 95% on the two liters. HEENT: Normocephalic, atraumatic. Mucosa dry. Pallor positive. No icterus. NECK: Supple. No JVD, no carotid bruit. No lymphadenopathy. LUNGS: Bilateral entry is decreased and clear to auscultation. No rales or rhonchi. HEART: S1, S2 normal. No S3. No murmur, gallop or regurgitation. ABDOMEN: Soft, nontender. Bowel sounds active. No rigidity. No rebound or guarding. No CVA tenderness. EXTREMITIES: No clubbing, cyanosis or pedal edema. MUSCULOSKELETAL: No joint swelling. Grossly intact. NEUROLOGIC: Awake, alert, oriented times three. No focal deficit. LYMPHATIC: No lymph nodes palpable. SKIN: Intact. Dry. LABS: WBC 5.72, hgb 12.0, hct 35.7, plt count 136, sodium 142, potassium 4.5, chloride 108, bicarb 26, BUN 10, creatinine 0.84. ASSESSMENT: 1. Severe headache, CT scan showing the acute on chronic hematoma and MRI showed the similar picture but significantly changed from the previous MRI's 2. Labile hypertension 3. Hypoglycemia 4. Gastroenteritis which is resolved 5. Diabetes 6. Dyslipidemia 7. 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 Will decrease the Levemir to 50 units 2. Accu-check with the coverage 3. Normal saline IV fluids 4. Out of bed to chair activity as tolerated 5. No anticoagulation as patient had a recent intracranial bleed. TIME SPENT: More than 35 minutes MTDD
== END 2017-05-25 13:47 | disposition home or self-care (01) | DRG 391 ==
LOC: MEDSURG B 12:28
PROVIDERS: ADMIT Emergency Medicine; ATTEND Emergency Medicine
DX: K52.9 Noninfective gastroenteritis and colitis, unspecified (principal); I62.01 Nontraumatic acute subdural hemorrhage; I62.03 Nontraumatic chronic subdural hemorrhage; B02.29 Other postherpetic nervous system involvement; I10 Essential (primary) hypertension; H53.8 Other visual disturbances; R41.3 Other amnesia; J98.4 Other disorders of lung; R51 Headache; E11.9 Type 2 diabetes mellitus without complications; J44.9 Chronic obstructive pulmonary disease, unspecified; E78.5 Hyperlipidemia, unspecified; M19.90 Unspecified osteoarthritis, unspecified site; M47.9 Spondylosis, unspecified; E16.2 Hypoglycemia, unspecified; T38.3X5A Adverse effect of insulin and oral hypoglycemic [antidiabetic] drugs, initial encounter; Y92.230 Patient room in hospital as the place of occurrence of the external cause; Z63.79 Other stressful life events affecting family and household; Z79.4 Long term (current) use of insulin; Z79.899 Other long term (current) drug therapy
CPT/HCPCS: 36415; 80053; 82550; 82962; 84484; 85025; 87081; 93005; 93010; 94640

== ENCOUNTER 2017-05-27 14:31 | Emergency (ER) ==
[2017-05-27 14:36] VITALS: BP 147/75; TEMP 98.8; BMI 24.2
--- NOTE | 2017-05-27 15:02 | ED.PDOC ---
General ED Provider: Dr. ALMA PRICE Chief Complaint: Weakness Stated Complaint: Cough x 2 weeks, productive at times (color?). Hospitalized for a week here. D/C'd 2 days ago. Doesn't know what diagnosis was. Feeling no better, still coughing. Has felt rundown x months. States had ahead CT a month ago and dx'd with "2 blood clots in my brain." Tx'd conservatively and Ct done just prior to hospitalization showed they were shrinking. Time Seen by Physician: 14:56 Mode of Arrival: Wheelchair Information Source: Patient, Family Exam Limitations: No limitations [facility] Documentation Reviewed and Agree: Yes Past Medical History - Past Medical History Previously Healthy: No Endocrine: Reports: DM 2, Dyslipidemia Cardiovascular: Reports: CAD, Hypertension Respiratory: Reports: COPD Hematological: Reports: Anemia Gastrointestinal: Reports: GERD Genitourinary: Reports: None Neuro/Psych: Reports: Anxiety Musculoskeletal: Reports: Arthritis, Back Pain, Joint Pain Cancer: Reports: None Other Pertinent Past Medical History: Shingles , 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 - Surgical History General Surgical History: Reports: None, Back Surgery, Other (sx stomach sx), Unknown - Family History Family History: Reports: None - Social History Smoking Status: Former smoker Hx Substance Use: No Alcohol Screening: None Course - Course Vital Signs: Temp Pulse Resp BP Pulse Ox 05/27/17 14:32 98.8 F 74 20 147/75 H 95 Departure - Departure Allergies/Adverse Reactions: Allergies No Known Allergies Allergy (Verified 05/27/17 14:39) Home Medications: Ambulatory Orders Amlodipine Besylate [Norvasc] 5 mg PO DAILY 05/11/17 Cyanocobalamin (Vitamin B-12) [B-12] 500 mcg PO DAILY 05/11/17 Gabapentin 600 mg PO TID 05/11/17 Hydrocodone Bit/Acetaminophen [Christine 5-325] 1 each PO BID PRN 05/11/17 Insulin Detemir [Levemir] 50 unit SQ BID 05/11/17 Latanoprost [Xalatan] 1 drop OP BEDTIME 05/11/17 Lisinopril 20 mg PO BID 05/11/17 Omeprazole [Prilosec] 20 mg PO QDAC 05/11/17 Chlordiazepoxide HCl 10 mg PO BID 05/14/17
--- NOTE | 2017-05-27 15:14 | ED.PDOC ---
General ED Provider: Dr. ALMA PRICE Chief Complaint: Weakness Stated Complaint: Cough x 2 weeks, productive at times (color?). Hospitalized for a week here. D/C'd 2 days ago. Doesn't know what diagnosis was. Feeling no better, still coughing. Has felt rundown x months. States had ahead CT a month ago and dx'd with "2 blood clots in my brain." Tx'd conservatively and CT done just prior to hospitalization showed they were shrinking. Time Seen by Physician: 15:00 Mode of Arrival: Wheelchair Information Source: Patient, Family Exam Limitations: No limitations [facility] Documentation Reviewed and Agree: Yes Respiratory Complaint Exam - Respiratory Complaint/Exam Onset/Duration: 2 weeks Symptoms Are: Still present Timing: Constant Initial Severity: Mild Current Severity: Moderate Location: Chest Character: Reports: Productive cough Aggravating: Reports: None Alleviating: Reports: None History of Healthcare-Acquired Pneumonia: No Related Surgical History: Reports: None Pulmonary Embolism Risk Factors: None Cardiac Risk Factors: Reports: Elevated lipids, Diabetes, Hypertension Pseudomonas Risk Factors: Reports: None, Chronic Lung Disease Tuberculosis Risk Factors: Reports: Diabetes Status Asthmaticus Risk Factors: Reports: None Home Oxygen Use: No Recent Stress Test: No Recent Echo/LV Function: No Current Antibiotic Use: No Current Asthma Medication Use: No Respiratory Distress: None Inadequate Respiratory Effort: No Dysphagia Present: No Stridor Present: No JVD Present: No Accessory Muscle Use: No Retractions: Not Present Diminished Breath Sounds: No Sinus Tenderness: None Grunting Respirations: No Kussmaul Respirations: No Differential Diagnoses: SC, Pneumonia, Bronchitis Non-Traumatic Chest Pain Syncope: EKG Performed Review of Systems - Review Of Systems Constitutional: Reports: Weakness Eyes: Reports: No symptoms Ears, Nose, Mouth, Throat: Reports: No symptoms Respiratory: Reports: Cough, Short of air Cardiac: Reports: No symptoms GI: Reports: No symptoms : Reports: No symptoms Musculoskeletal: Reports: No symptoms Skin: Reports: No symptoms Neurological: Reports: No symptoms Endocrine: Reports: No symptoms Hematologic/Lymphatic: Reports: No symptoms All Other Systems: Reviewed and Negative Past Medical History - Past Medical History Previously Healthy: No Endocrine: Reports: DM 2, Dyslipidemia Cardiovascular: Reports: CAD, Hypertension Respiratory: Reports: COPD Hematological: Reports: Anemia Gastrointestinal: Reports: GERD Genitourinary: Reports: None Neuro/Psych: Reports: Anxiety Musculoskeletal: Reports: Arthritis, Back Pain, Joint Pain Cancer: Reports: None Other Pertinent Past Medical History: Shingles , 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 - Surgical History General Surgical History: Reports: None, Back Surgery, Other (sx stomach sx), Unknown - Family History Family History: Reports: None - Social History Smoking Status: Former smoker Hx Substance Use: No Alcohol Screening: None Lives: With family - Immunizations Tetanus Shot up to Date: No Influenza Vaccine within 12 Months: No Pneumococcal Vaccine up to Date: No Physical Exam - Physical Exam Appearance: Well-appearing, No pain distress, Well-nourished Ill-appearing: None Pain Distress: None Eyes: HAYDEE, EOMI, Conjunctiva clear ENT: Nose normal, Oropharynx normal, TMs Oc[place], Erythema Neck: Nonsupple Respiratory: Airway patent, Breath sounds equal, Respirations nonlabored, Rhonchi (scattered rhonchi in bilateral bases) Cardiovascular: RRR, Pulses normal, No rub, No murmur GI/: Soft, Nontender, No masses, Bowel sounds normal, No Organomegaly Musculoskeletal: Normal strength, ROM intact, No edema, No calf tenderness Skin: Warm, Dry, Normal color Neurological: Sensation intact, Motor intact, Reflexes intact, Cranial nerves intact, Alert, Oriented Psychiatric: Affect appropriate, Mood appropriate Interpretation - Radiology Interpretation Radiology Interpretation By: Radiologist Radiology Results: Positive (bilateral interstitial thickening and bibasilar opacities suggesting fibrosis) Exam Interpreted: CXR Xray Comments: High resolution CT study recommended Radiology Interpretation By: Radiologist Radiology Results: No acute changes Exam Interpreted: CT Scan Xray Comments: Nonspecific pneumonitis or early fibrosis - EKG Interpretation Time of EKG #1: 16:36 Rate: Normal Rhythm: Sinus Ectopy: None [place]: NL ST Segment: Normal Interpretation: NSR with first degree AV block Critical Care Note - Critical Care Note Total Time (mins): 0 Course - Course Hematology/Chemistry: 05/27/17 15:20 05/27/17 15:20 Orders, Labs, Meds: Lab Review 05/27/17 05/27/17 05/27/17 15:20 15:20 15:20 WBC 11.16 H D RBC 4.49 L Hgb 13.2 L Hct 37.6 L MCV 83.7 MCH 29.4 MCHC 35.1 RDW Coeff of Oj 12.8 Plt Count 153 Immature Gran % (Auto) 0.4 Neut % (Auto) 75.4 Lymph % (Auto) 11.8 [place] % (Auto) 9.8 Eos % (Auto) 2.2 Baso % (Auto) 0.4 Immature Gran # (Auto) 0.1 Neut # 8.4 H Lymph # 1.3 [place] # 1.1 Eos # 0.3 Baso # 0.0 Sodium 140 Potassium 4.1 Chloride 105 Carbon Dioxide 26 Anion Gap 13.1 BUN 17 Creatinine 0.93 Estimated GFR (MDRD) 77.00 BUN/Creatinine Ratio 18.27 Glucose 55 L Lactic Acid 9.1 Calcium 9.4 Total Bilirubin 0.38 AST 15 ALT 20 Alkaline Phosphatase 66 Total Creatine Kinase 36 Troponin I < 0.0100 Total Protein 6.7 Albumin 3.2 L Globulin 3.5 Albumin/Globulin Ratio 0.91 Urine Color Urine Clarity Urine pH Ur Specific [place] Urine Protein Urine Glucose (UA) Urine Ketones Urine Blood Urine Nitrite Urine Bilirubin Urine Urobilinogen Ur Leukocyte Esterase Urine Microscopic RBC Urine Microscopic WBC Ur Squamous Epith Cells 05/27/17 16:20 WBC RBC Hgb Hct MCV MCH MCHC RDW Coeff of Jo Plt Count Immature Gran % (Auto) Neut % (Auto) Lymph % (Auto) [place] % (Auto) Eos % (Auto) Baso % (Auto) Immature Gran # (Auto) Neut # Lymph # [place] # Eos # Baso # Sodium Potassium Chloride Carbon Dioxide Anion Gap BUN Creatinine Estimated GFR (MDRD) BUN/Creatinine Ratio Glucose Lactic Acid Calcium Total Bilirubin AST ALT Alkaline Phosphatase Total Creatine Kinase Troponin I Total Protein Albumin Globulin Albumin/Globulin Ratio Urine Color Yellow Urine Clarity Clear Urine pH 6.5 Ur Specific [place] 1.020 Urine Protein Trace Urine Glucose (UA) Trace Urine Ketones Negative Urine Blood Negative Urine Nitrite Negative Urine Bilirubin Negative Urine Urobilinogen 0.2 Ur Leukocyte Esterase Trace Urine Microscopic RBC 0-2 Urine Microscopic WBC 5-10 Ur Squamous Epith Cells Not present Orders Category Date Time Status EKG-(ED ONLY) Stat CARDIO 05/27/17 15:17 Completed CBC W/ AUTO DIFF Stat LAB 05/27/17 15:20 Completed COMPREHENSIVE METABOLIC PANEL Stat LAB 05/27/17 15:20 Completed CREATINE KINASE Stat LAB 05/27/17 15:20 Completed LACTIC ACID Stat LAB 05/27/17 15:20 Completed TROPONIN I Stat LAB 05/27/17 15:20 Completed URINALYSIS C & S IF INDICATED Stat LAB 05/27/17 16:20 Completed URINE CULTURE Stat LAB 05/27/17 16:35 Received CHEST, 2 VIEWS PA & LAT Stat RADS 05/27/17 15:[address] CHEST W/O CONTRAST Stat RADS 05/27/17 15:25 Completed Vital Signs: Temp Pulse Resp BP Pulse Ox 05/27/17 14:32 98.8 F 74 20 147/75 H 95 Departure - Departure Time of Disposition: 17:01 Disposition: HOME SELF-CARE Discharge Problem: Pneumonitis Instructions: Pneumonitis (ED) Condition: Good Pt referred to PMD for follow-up: No (see doctor if no better in 3 days, sooner if worsens) Allergies/Adverse Reactions: Allergies No Known Allergies Allergy (Verified 05/27/17 14:39) Home Medications: Ambulatory Orders Amlodipine Besylate [Norvasc] 5 mg PO DAILY 05/11/17 Cyanocobalamin (Vitamin B-12) [B-12] 500 mcg PO DAILY 05/11/17 Gabapentin 600 mg PO TID 05/11/17 Hydrocodone Bit/Acetaminophen [[place] 5-325] 1 each PO BID PRN 05/11/17 Insulin Detemir [Levemir] 50 unit SQ BID 05/11/17 Latanoprost [Xalatan] 1 drop OP BEDTIME 05/11/17 Lisinopril 20 mg PO BID 05/11/17 Omeprazole [Prilosec] 20 mg PO QDAC 05/11/17 Chlordiazepoxide HCl 10 mg PO BID 05/14/17 Azithromycin [Zithromax] 500 mg PO DAILY #5 tablet 05/27/17 Hydrocodone Bit/Homatrop Me-Br [Hydrocodone-Homatropine Syrup] 5 ml PO BID PRN # 120 syrup 05/27/17 Disposition Discussed With: Patient, Family
[2017-05-27 15:30] LABS: BASOPHILS % (AUTO) 0.4 % (0.0-3.0); EOSINOPHILS # (AUTO) 0.3 K/ul (0.0-0.7); EOSINOPHILS % (AUTO) 2.2 % (0.0-7.0); HEMATOCRIT 37.6 % (42.0-52.0); HEMOGLOBIN 13.2 g/dl (14.0-18.0); IMMATURE GRANULOCYTE % (AUTO) 0.4 % (0.0-5.0); LYMPHOCYTES # (AUTO) 1.3 K/uL (0.60-3.4); LYMPHOCYTES % (AUTO) 11.8 (10.0-50.0); MEAN CORPUSCULAR HEMOGLOBIN 29.4 pg (27.0-31.0); MEAN CORPUSCULAR HGB CONC 35.1 (31.8-35.4); MEAN CORPUSCULAR VOLUME 83.7 fl (80.0-94.0); MONOCYTES # (AUTO) 1.1 K/uL (0.4-2.0); MONOCYTES % (AUTO) 9.8 (0-10); NEUTROPHILS # (AUTO) 8.4 K/ul (2.0-6.9); NEUTROPHILS % (AUTO) 75.4; PLATELET COUNT 153 10^3/uL (140-440); RED BLOOD COUNT 4.49 10^6/ul (4.70-6.10); WHITE BLOOD COUNT 11.16 K/ul (4.2-10.2)
[2017-05-27 15:55] LABS: ALBUMIN 3.2 g/dL (3.4-5.0); ALBUMIN/GLOBULIN RATIO 0.91; ALKALINE PHOSPHATASE 66 U/L (56-119); ANION GAP 13.1; BILIRUBIN,TOTAL 0.38 mg/dL (0.00-1.20); CALCIUM 9.4 mg/dL (8.2-10.2); CARBON DIOXIDE 26 mmol/L (23-31); CHLORIDE 105 mmol/L (98-107); GLUCOSE 55 mg/dL (82-115); POTASSIUM 4.1 mmol/L (3.5-5.1); SODIUM 140 mmol/L (136-145); TOTAL PROTEIN 6.7 g/dL (5.8-8.1)
[2017-05-27 15:56] LABS: ALANINE AMINOTRANSFERASE 20 U/L (12-78); ASPARTATE AMINO TRANSFERASE 15 U/L (15-37); BLOOD UREA NITROGEN 17 mg/dL (7-18); BUN/CREATININE RATIO 18.27; CREATINE KINASE 36 U/L; CREATININE 0.93 mg/dL (0.60-1.10)
--- NOTE | 2017-05-27 16:17 | CT ---
EXAM: CT of the chest without contrast History: Abnormal chest radiograph Comparison: Chest radiograph 05/25/2017, chest CT 08/22/2016 Technique: Multiplanar CT images through the thorax were obtained without the administration of IV c ontrast. High resolution images were also provided. Findings: Heart size is upper limits of normal. Coronary calcifications. No pathologically enlarged thoracic lymph nodes. Calcified granulomas again seen within the thorax. Great vessels are unremar kable. Mild to moderate upper lobe predominant emphysema again appreciated. Bilateral peripheral re ticular opacities increased compared to the prior study. No definite honeycombing is identified at t his time. Dependent atelectasis. Lower lobe bronchial wall thickening. No pleural fluid and no pne umothorax. No suspicious lung masses or lung nodules. Within the visualized upper abdomen, partially visualized right renal cyst. No acute osseous abnorma lities. Diffuse idiopathic skeletal hyperostosis of the thoracic spine with large flowing anterior o steophytes. Impression: 1. Peripheral reticular opacities could represent nonspecific interstitial pneumonitis or early fibr osis. 2. No consolidated pneumonia. 3. Dependent atelectasis. 4. Lower lobe bronchial wall thickening. 5. Coronary artery disease. 6. Upper lobe predominant emphysema.
[2017-05-27 16:30] LABS: BILIRUBIN,URINE Negative (NEGATIVE); KETONES,URINE Negative (NEGATIVE); LEUKOCYTE ESTERASE ,URINE Trace (NEGATIVE); NITRITE,URINE Negative (NEGATIVE); PH,URINE 6.5 (5-9); PROTEIN,URINE Trace (NEGATIVE); URINE, BLOOD Negative (NEGATIVE)
[2017-05-27 16:31] LABS: ADD URINE MICROSCOPIC YES
== END 2017-05-27 17:25 | disposition home or self-care (01) ==
LOC: ED 14:31
DX: J18.9 Pneumonia, unspecified organism (principal); E78.5 Hyperlipidemia, unspecified; E11.9 Type 2 diabetes mellitus without complications; I10 Essential (primary) hypertension; R06.02 Shortness of breath; I25.10 Atherosclerotic heart disease of native coronary artery without angina pectoris; J44.9 Chronic obstructive pulmonary disease, unspecified; D64.9 Anemia, unspecified; Z79.899 Other long term (current) drug therapy
CPT/HCPCS: 36415; 80053; 81001; 82550; 83605; 84484; 85025; 87086; 93005; 93010; 99283

== ENCOUNTER 2017-09-25 13:35 | Inpatient (IN) ==
[2017-09-25] MEDS ORDERED: DUONEB NEB STA (13:52)
--- NOTE | 2017-09-25 15:40 | CT ---
EXAM: CT THORAX HISTORY: Cough. TECHNIQUE: CT thorax without intravenous contrast. Multiplanar images presented. Coronal and sagit malcolm re-formations. COMPARISON: 05/27/2017 FINDINGS: Normal heart size. No pericardial effusion. Mild to moderate atherosclerotic disease. Several medi astinal lymph nodes some which are calcified. These are stable and nonspecific. The lungs again demonstrate relatively severe chronic appearing interstitial changes with scattered a reas of mild emphysema and heavy interstitial thickening in the bases. There is mild bibasilar bronc hiectasis. This appears similar to that previously seen although currently some superimposed pneumon ia is likely in the lung bases bilaterally. There is no vascular congestion or central interstitial e xenia. The bones reveal bulky bridging anterior osteophytic spurs of the spine. IMPRESSION: Redemonstration of relatively severe chronic appearing interstitial changes suggesting fi brotic change. Currently with probable superimposed basilar pneumonia bilaterally.
[2017-09-25] MEDS ORDERED: ROCEPHIN 1 GM in SODIUM CHLORIDE 50 ML IV STA (15:44)
[2017-09-25] MEDS ORDERED: ZITHROMAX PO STA (15:44)
[2017-09-25] MEDS ORDERED: SOLU-MEDROL 125 MG IVP STA (15:45)
--- NOTE | 2017-09-25 15:48 | ED.PDOC ---
General ED Provider: Dr. YONNY FREEMAN Chief Complaint: Respiratory Complaint Stated Complaint: COUGH FLU LIKE SYMPTOMS Time Seen by Physician: 13:36 Mode of Arrival: Walk-In Information Source: Patient Exam Limitations: No limitations Primary Care Provider[facility] Nursing and Triage Documentation Reviewed and Agree: Yes Reviewed sepsis parameters & appropriate labs ordered?: Yes System Inflammatory Response Syndrome: Not Applicable Sepsis Protocol: For patient's 13 years and over: Temp is 96.8 and below OR 101 and greater Pulse >90 BPM Resp >20/minute Acutely Altered Mental Status Are patient's symptoms suggestive of a new infection, such as: -Pneumonia -Skin, Soft Tissue -Endocarditis -UTI -Bone, Joint Infection -Implantable Device -Acute Abdominal Infection -Wound Infection -Meningitis -Blood Stream Catheter Infection -Unknown System Inflammatory Response Syndrome: Not Applicable Review of Systems - Review Of Systems Constitutional: Reports: Malaise, Weakness Eyes: Reports: No symptoms Ears, Nose, Mouth, Throat: Reports: Throat pain Respiratory: Reports: Cough Cardiac: Reports: No symptoms GI: Reports: No symptoms : Reports: No symptoms Musculoskeletal: Reports: No symptoms Skin: Reports: No symptoms Neurological: Reports: No symptoms Endocrine: Reports: No symptoms Hematologic/Lymphatic: Reports: No symptoms All Other Systems: Reviewed and Negative Past Medical History - Past Medical History Previously Healthy: No Endocrine: Reports: DM 2, Dyslipidemia Cardiovascular: Reports: CAD, Hypertension Respiratory: Reports: COPD Hematological: Reports: Anemia Gastrointestinal: Reports: GERD Genitourinary: Reports: None Neuro/Psych: Reports: Anxiety Musculoskeletal: Reports: Arthritis, Back Pain, Joint Pain Cancer: Reports: None Other Pertinent Past Medical History: Shingles , 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 - Surgical History General Surgical History: Reports: None, Back Surgery, Other (sx stomach sx), Unknown - Family History Family History: Reports: None - Social History Smoking Status: Former smoker Hx Substance Use: No Alcohol Screening: None - Immunizations Influenza Vaccine within 12 Months: No Pneumococcal Vaccine up to Date: No Physical Exam - Physical Exam Appearance: Ill-appearing Ill-appearing: Mild Pain Distress: Mild Eyes: HAYDEE, EOMI, Conjunctiva clear ENT: Ears normal, Nose normal, Oropharynx normal Respiratory: Rhonchi, Wheezes Cardiovascular: RRR, Pulses normal, No rub, No murmur GI/: Soft, Nontender, No masses, Bowel sounds normal, No Organomegaly Musculoskeletal: Normal strength, ROM intact, No edema, No calf tenderness Skin: Warm, Dry, Normal color Neurological: Sensation intact, Motor intact, Reflexes intact, Cranial nerves intact, Alert, Oriented Psychiatric: Affect appropriate, Mood appropriate Interpretation - Radiology Interpretation Radiology Interpretation By: Radiologist Radiology Results: Positive (PNEUMONIA) - Messenger Floorperson Rate: Normal, Willian Rhythm: Sinus - EKG Interpretation Rate: Willian Rhythm: Sinus Re-Evaluation - Re-Evaluation Time of Re-Evaluation: 14:30 Status: Improved Vital Signs Stable: Yes Pain Level: 0 Appearance: NAD Lungs: Clear Skin: Warm and Dry Neuro: Alert and Oriented X3 CV: RRR - Re-Evaluation Time of Re-Evaluation: 15:48 Status: Improved Vital Signs Stable: Yes Pain Level: 0 Appearance: NAD Skin: Warm and Dry Neuro: Alert and Oriented X3 CV: RRR Physician Notification - Case Discussed Physician Notified: PMD Time of Notification: 15:48 Critical Care Note - Critical Care Note Total Time (mins): 0 Course - Course Hematology/Chemistry: 09/25/17 14:10 09/25/17 14:10 Orders, Labs, Meds: Lab Review 09/25/17 09/25/17 09/25/17 14:10 14:10 14:10 WBC 11.91 H RBC 4.91 Hgb 14.2 Hct 41.8 L MCV 85.1 MCH 28.9 MCHC 34.0 RDW Coeff of Oj 13.3 Plt Count 152 Immature Gran % (Auto) 0.5 Neut % (Auto) 78.0 Lymph % (Auto) 11.3 Hardin % (Auto) 9.6 Eos % (Auto) 0.3 Baso % (Auto) 0.3 Immature Gran # (Auto) 0.1 Neut # 9.3 H Lymph # 1.4 Hardin # 1.1 Eos # 0.0 Baso # 0.0 Sodium 141 Potassium 3.8 Chloride 105 Carbon Dioxide 29 Anion Gap 10.8 BUN 19 H Creatinine 1.29 H Estimated GFR (MDRD) 53.00 BUN/Creatinine Ratio 14.72 Glucose 115 Lactic Acid Calcium 9.3 Total Bilirubin 1.0 AST 17 ALT 15 Alkaline Phosphatase 74 Total Protein 7.3 Albumin 3.5 Globulin 3.8 Albumin/Globulin Ratio 0.92 Procalcitonin 1.99 Influenza A (Rapid) Influenza B (Rapid) 01/19/18 01/19/18 14:10 14:10 WBC RBC Hgb Hct MCV MCH MCHC RDW Coeff of Oj Plt Count Immature Gran % (Auto) Neut % (Auto) Lymph % (Auto) Hardin % (Auto) Eos % (Auto) Baso % (Auto) Immature Gran # (Auto) Neut # Lymph # Hardin # Eos # Baso # Sodium Potassium Chloride Carbon Dioxide Anion Gap BUN Creatinine Estimated GFR (MDRD) BUN/Creatinine Ratio Glucose Lactic Acid 8.9 Calcium Total Bilirubin AST ALT Alkaline Phosphatase Total Protein Albumin Globulin Albumin/Globulin Ratio Procalcitonin Influenza A (Rapid) Negative by naat Influenza B (Rapid) Negative by naat Orders Category Date Time Status EKG-(ED ONLY) Stat CARDIO 09/25/17 13:46 Completed NEBULIZER TREATMENT Stat CARDIO 09/25/17 13:52 Completed NEBULIZER TREATMENT Stat CARDIO 09/25/17 15:45 Ordered BLOOD CULTURE Stat LAB 09/25/17 14:20 Received CBC W/ AUTO DIFF Stat LAB 09/25/17 14:10 Completed COMPREHENSIVE METABOLIC PANEL Stat LAB 09/25/17 14:10 Completed FLU A/B MOLECULAR Stat LAB 09/25/17 14:10 Completed LACTIC ACID Stat LAB 09/25/17 14:10 Completed MOLECULAR GROUP A STREP Stat LAB 09/25/17 14:10 Completed PROCALCITONIN Stat LAB 09/25/17 14:10 Completed Azithromycin [Zithromax] MEDS 09/25/17 15:44 Stat 1,000 mg PO ONCE STA Ceftriaxone Sodium [Rocephin] 1 gm MEDS 09/25/17 15:44 Ordered 0.9 % Sodium Chloride [Sodium Chloride] 50 ml IV ONCE Ipratropium/Albuterol Neb [Duoneb] MEDS 09/25/17 13:52 Discontinued 1 vial NEB ONCE STA Ipratropium/Albuterol Neb [Duoneb] MEDS 09/25/17 18:00 Ordered 1 vial NEB RTQ6H Methylprednisolone Sod Succ/Pf [Solu-Medrol 125 mg] MEDS 09/25/17 15:45 Stat 125 mg IVP ONCE STA CT CHEST W/O CONTRAST Stat RADS 09/25/17 13:46 Completed Medications Generic Name Dose Route Start Last Admin Trade Name Freq PRN Reason Stop Dose Admin Albuterol/Ipratropium 1 vial 09/25/17 18:00 Duoneb BARAK RTQ6H ANTHONY Ceftriaxone Sodium 1 gm/ 50 mls @ 75 mls/hr 09/25/17 15:44 Sodium Chloride IV 09/25/17 16:23 ONCE STA Methylprednisolone Sodium Succinate 125 mg 09/25/17 15:45 Solu-Medrol 125 Mg IVP 09/25/17 15:46 ONCE STA Discontinued Medications Generic Name Dose Route Start Last Admin Trade Name Freghada PRN Reason Stop Dose Admin Albuterol/Ipratropium 1 vial 09/25/17 13:52 09/25/17 13:59 Duoneb NEB 09/25/17 13:53 1 vial ONCE STA Administration Azithromycin 1,000 mg 09/25/17 15:44 Zithromax PO 09/25/17 15:45 ONCE STA Vital Signs: Temp Pulse Resp BP Pulse Ox 09/25/17 13:36 97.3 F L 63 16 163/89 H 94 L Departure - Departure Time of Disposition: 15:48 Disposition: ADMITTED INPATIENT Discharge Problem: Pneumonia Qualifiers: Pneumonia type: due to unspecified organism Instructions: Pneumonitis (ED) Condition: Good Pt referred to PMD for follow-up: Yes IPMP verified?: Yes Additional Instructions: Please call your Family Physician as soon as possible to schedule a follow-up appointment. Allergies/Adverse Reactions: Allergies No Known Allergies Allergy (Verified 09/25/17 13:44) Home Medications: Ambulatory Orders Amlodipine Besylate [Norvasc] 5 mg PO DAILY 05/11/17 Cyanocobalamin (Vitamin B-12) [B-12] 500 mcg PO DAILY 05/11/17 Latanoprost [Xalatan] 1 drop OP BEDTIME 05/11/17 Lisinopril 20 mg PO BID 05/11/17 Omeprazole [Prilosec] 20 mg PO QDAC 05/11/17 Chlordiazepoxide HCl 10 mg PO BID 05/14/17 Insulin Detemir [Levemir] 40 unit SUBCUT BID 09/25/17 Disposition Discussed With: Patient, Family
[2017-09-25] MEDS ORDERED: ROCEPHIN ONE (15:58)
[2017-09-25] MEDS: DUONEB NEB SCH ×2 (17:45→23:40)
[2017-09-25 18:12] VITALS: BMI 25.1
[2017-09-25] MEDS ORDERED: NON-FORMULARY MEDICATION (Gabapentin [Gabapentin] 600 MG) PO SCH (21:00)
[2017-09-25] MEDS ORDERED: NON-FORMULARY MEDICATION (Lisinopril [Lisinopril] 20 MG) PO SCH (21:00)
[2017-09-25] MEDS ORDERED: NEURONTIN ONE (21:54)
[2017-09-25] MEDS ORDERED: ZESTRIL ONE (21:54)
[2017-09-25] MEDS: XALATAN OP SCH (21:59)
[2017-09-25] MEDS: LIBRIUM PO SCH (22:01)
[2017-09-25] MEDS: LEVEMIR SUBCUT SCH (22:02)
[2017-09-26] MEDS: DUONEB NEB SCH ×4 (05:40→23:15)
[2017-09-26] MEDS: PRILOSEC PO SCH (05:54)
[2017-09-26] MEDS: HUMULIN R SUBCUT PRN ×4 (06:04→21:02)
[2017-09-26] MEDS: NON-FORMULARY MEDICATION (Cyanocobalamin (Vitamin B-12) [B-12] 500 MCG) PO SCH (08:45)
[2017-09-26] MEDS: NORVASC PO SCH (08:47)
[2017-09-26] MEDS: NEURONTIN PO SCH ×3 (08:47→21:03)
[2017-09-26] MEDS: ZESTRIL PO SCH ×2 (08:47→21:03)
[2017-09-26] MEDS: ZITHROMAX PO SCH (08:47)
[2017-09-26] MEDS: ROCEPHIN 1 GM in SODIUM CHLORIDE 50 ML IV SCH (09:20)
[2017-09-26] MEDS: LEVEMIR SUBCUT SCH ×2 (09:21→21:02)
[2017-09-26] MEDS: LIBRIUM PO SCH ×2 (09:21→21:03)
--- NOTE | 2017-09-26 09:34 | DI ---
Exam: Two-view chest x-ray. Date: 09/26/2017. Comparison: 05/25/2017. HISTORY: Cough and shortness of breath. FINDINGS: Multilevel degenerative changes are seen in the thoracic spine. The lungs are hyperinflat ed. There is a chronic prominence to the lung interstitium with fibrotic changes in the lung bases. There is no focal consolidation. Cardiac silhouette and pulmonary vasculature are normal. ASVD is present. Impression: No acute intrathoracic findings. Emphysematous changes with probable bibasilar fibrosis .
[2017-09-26] MEDS: XALATAN OP SCH (21:02)
[2017-09-27] MEDS: DUONEB NEB SCH ×4 (04:45→23:25)
[2017-09-27] MEDS: PRILOSEC PO SCH (05:32)
[2017-09-27] MEDS: NON-FORMULARY MEDICATION (Cyanocobalamin (Vitamin B-12) [B-12] 500 MCG) PO SCH (08:49)
[2017-09-27] MEDS: NEURONTIN PO SCH ×3 (08:50→22:07)
[2017-09-27] MEDS: NORVASC PO SCH (08:50)
[2017-09-27] MEDS: ZESTRIL PO SCH ×2 (08:50→22:06)
[2017-09-27] MEDS: ROCEPHIN 1 GM in SODIUM CHLORIDE 50 ML IV SCH (08:51)
[2017-09-27] MEDS: LIBRIUM PO SCH ×2 (08:51→22:07)
[2017-09-27] MEDS: ZITHROMAX PO SCH (08:51)
[2017-09-27] MEDS: LEVEMIR SUBCUT SCH (08:51)
[2017-09-27] MEDS: HUMULIN R SUBCUT PRN ×2 (12:11→22:07)
[2017-09-27] MEDS ORDERED: LEVEMIR SUBCUT ONE (21:00)
[2017-09-27] MEDS: XALATAN OP SCH (22:06)
[2017-09-28] MEDS: DUONEB NEB SCH ×4 (05:20→20:15)
[2017-09-28] MEDS: PRILOSEC PO SCH (06:11)
[2017-09-28] MEDS: LIBRIUM PO SCH ×2 (09:15→20:39)
[2017-09-28] MEDS: ZITHROMAX PO SCH (09:15)
[2017-09-28] MEDS: NEURONTIN PO SCH ×3 (09:15→20:39)
[2017-09-28] MEDS: ZESTRIL PO SCH ×2 (09:15→20:39)
[2017-09-28] MEDS: ROCEPHIN 1 GM in SODIUM CHLORIDE 50 ML IV SCH (09:15)
[2017-09-28] MEDS: NORVASC PO SCH (09:15)
[2017-09-28] MEDS: LEVEMIR SUBCUT SCH ×2 (09:16→20:44)
[2017-09-28] MEDS: NON-FORMULARY MEDICATION (Cyanocobalamin (Vitamin B-12) [B-12] 500 MCG) PO SCH (09:25)
--- NOTE | 2017-09-28 09:51 | DI ---
EXAM: CHEST FRONTAL AND LATERAL VIEWS HISTORY: Pneumonia. COMPARISON: 09/26/2017 FINDINGS / IMPRESSION: Heart size appears normal. There is at least mild aortic atherosclerosis. C hronic-appearing interstitial changes diffusely. Additional reticular densities in the bases appear similar to that previously seen and may represent fibrosis although cannot exclude mild superimposed pneumonia.
[2017-09-28] MEDS: HUMULIN R SUBCUT PRN ×3 (11:26→20:41)
--- NOTE | 2017-09-28 12:54 | HP ---
DATE OF SERVICE: 09/25/17 CHIEF COMPLAINT: Cough, congestion, fever, chills and shortness of breath. HISTORY OF PRESENT ILLNESS: This is a 86 year old male with a history of diabetes and COPD. The patient was brought by the patient's for the cough and congestion, shortness of breath then started having the nausea and vomiting and not able to keep anything down. Only the food material, nonbloody vomiting and the diarrhea watery diarrhea 4-5 times. Coughing sputum is sometimes a black colored sputum. Been having fever and chills, came and seen Dr. Gann in the emergency room. ABG showed the pH 7.456, pCO2 35.2 and pO2 67. WBC with left shift of of 11.91. At that time lactic acid and procalcitonin negative. CT chest showed the pneumonia. At that time the patient being admitted to the hospital for community acquired pneumonia , gastroenteritis and dehydration. REVIEW OF SYSTEMS: CONSTITUTIONAL: Fever and chills. Weakness and tired. HEENT: Normal. ENDOCRINE: No weight gain; no weight loss. CVS: No chest pain. No PND, no orthopnea. No shortness of breath. No PND, no orthopnea. RESPIRATORY: Cough, Congestion. No hemoptysis. GI: Nausea, Vomiting. No abdominal pain. No melena. : No hematuria. No polyuria. MUSCULOSKELETAL: No joint swelling. PSYCHIATRIC: Not anxious. No depression. No suicidal thoughts. No homicidal thoughts. SKIN: Intact, no open lesions. 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 and lives with the . Family history is significant for the cancer. MEDICATIONS: Prilosec Norvasc Vitamin B 12 Xalatan Lisinopril Chlordiazepoxide Neurontin Levemir ALLERGIES: No known medications. PHYSICAL EXAMINATION: V/S: Blood pressure 163/89, respiratory rate 16, heart rate 63, temperature 97.2 and saturation 92% on room air. GENERAL: Sick looking man lying in the bed not in any distress. HEENT: Atraumatic, normocephalic. No scleral icterus. Pallor positive. Mucosa dry. NECK: Supple. No JVD, no bruit. No lymphadenopathy. No thyromegaly. HEART: S1, S2 normal. No murmur. No cyanosis or clubbing. No ascites. LUNGS: Decreased and basilar crackles. No rales or rhonchi. ABDOMEN: Soft, discomfort all over. Bowel sounds are active. No CVA tenderness. No rigidity or guarding. EXTREMITIES: No pedal edema. No cyanosis or clubbing. Right hand partial thumb amputation. MUSCULOSKELETAL: Normal joints, no swelling. SKIN: Intact; no open lesions. LYMPHATIC: No lymph nodes palpable. LABS: Sodium 141, potassium 3.8, chloride 105, bicarb 29, BUN 19, creatinine 1.29, WBC 11.91, hgb 14.2, hct 41.8, plt count 152. ASSESSMENT: 1. Community acquired pneumonia 2. Acute gastroenteritis 3. Diabetes 4. Hypertension 5. Dyslipidemia 6. Osteoarthritis 7. DJD spine 8. Depression 9. Peripheral neuropathy 10.Hepatic neuralgia PLAN: 1. Admit the patient to the regular floor 2. CBC and CMP today and daily 3. Cardiac enzymes and Troponin 4. Rocephin and Azithromycin 5. Continue Levemir 40mg twice a day 6. Accu-checks with coverage 7. Daily I&O's TIME SPENT: MORE THAN 75 minutes for admission. PETERSOND
--- NOTE | 2017-09-28 12:58 | PN ---
DATE OF SERVICE: 09/26/17 SUBJECTIVE: Cough and congest is still present. Nausea and vomiting is improved. Up and about. No fever or chills. REVIEW OF SYSTEMS: CONSTITUTIONAL: No fever, no chills. HEENT: Normal. ENDOCRINE: No weight gain, no weight loss. CVS: No angina symptoms. No CHF symptoms. No palpitations. No atypical chest pain for CAD. No shortness of breath. No PND, no orthopnea. RESPIRATORY: No cough, no hemoptysis. GI: No nausea, no vomiting. No abdominal pain. : No hematuria. No polyuria. MUSCULOSKELETAL: No joint swelling. PSYCHIATRIC: Not anxious. No depression. No suicidal thoughts. No homicidal thoughts. SKIN: Intact. No rash. PHYSICAL EXAMINATION: V/S: Blood pressure 154/73, respiratory rate 18, heart rate 65, temperature 97.4 and saturation 99% on 4 liters. HEENT: Normocephalic, atraumatic. Mucosa dry. NECK: Supple. No JVD, no carotid bruit. No lymphadenopathy. LUNGS:Decreased with basilar crackles. No rales or rhonchi. HEART: S1, S2 normal. No S3. No murmur, gallop or regurgitation. ABDOMEN: Soft, nontender. Bowel sounds active. No rigidity. No rebound or guarding. No CVA tenderness. EXTREMITIES: No pedal edema. No clubbing or cyanosis MUSCULOSKELETAL: No joint swelling. NEUROLOGIC: Awake, alert, oriented times three. No focal deficit. LYMPHATIC: No lymph nodes palpable. SKIN: Intact. LABS: WBC 9.08, hgb 14.0, hct 40.6, plt count 159, sodium 137, potassium 4.3, chloride 105, bicarb 24, BUN 22, creatinine 1.16 and glucose 239. ASSESSMENT: 1. COPD exacerbation secondary to the pneumonia 2. Acute gastroenteritis 3. Diabetes uncontrolled, labile 4. Hypertension 5. Dyslipidemia 6. Osteoarthritis PLAN: 1. Continue the Rocephin and Azithromycin 2. DUO NEBS 3. Breathing treatments 4. Accu-checks with coverage. TIME SPENT: More than 35 minutes MTDD
--- NOTE | 2017-09-28 13:04 | PN ---
DATE OF SERVICE: 09/27/17 SUBJECTIVE: The patient is walking the corridor says that he is feeling better. Nurse Ctaherine is helping the patient. No more diarrhea of vomiting. Still has some cough but a lot better. Feeling better. REVIEW OF SYSTEMS: CONSTITUTIONAL: No fever, no chills. HEENT: Normal. ENDOCRINE: No weight gain, no weight loss. CVS: No angina symptoms. No CHF symptoms. No palpitations. No atypical chest pain for CAD. No shortness of breath. No PND, no orthopnea. RESPIRATORY: No cough, no hemoptysis. GI: No nausea, no vomiting. No abdominal pain. : No hematuria. No polyuria. MUSCULOSKELETAL: No joint swelling. PSYCHIATRIC: Not anxious. No depression. No suicidal thoughts. No homicidal thoughts. SKIN: Intact. No rash. PHYSICAL EXAMINATION: V/S: Blood pressure 129/65, respiratory rate 20, heart rate 69, temperature 97.4 and saturation is 95. HEENT: Normocephalic, atraumatic. Mucosa dry. NECK: Supple. No JVD, no carotid bruit. No lymphadenopathy. LUNGS: Decreased basilar crackles. No rales or rhonchi. HEART: S1, S2 normal. No S3. No murmur, gallop or regurgitation. ABDOMEN: Soft, nontender. Bowel sounds active. No rigidity. No rebound or guarding. No CVA tenderness. EXTREMITIES: No pedal edema. No clubbing or cyanosis MUSCULOSKELETAL: No joint swelling. NEUROLOGIC: Awake, alert, oriented times three. No focal deficit. LYMPHATIC: No lymph nodes palpable. SKIN: Intact. LABS: Sodium 142, potassium 3.5, chloride 107, bicarb 27, BUN 28, creatinine 1.26, WBC 8.16, hgb 12.5, hct 37.4, plt count 141. ASSESSMENT: 1. Community acquired pneumonia 2. Status post acute dehydration from gastroenteritis 3. COPD 4. Diabetes Labile 5. Hypertension 6. Dyslipidemia 7. Osteoarthritis 8. DJD spine 9. Post hepatic neuralgia PLAN: 1. Continue the Azithromycin, Rocephin 1 gram daily 2. Librium PRN 3. Accu-checks with coverage 4. Will get chest x-ray in the morning TIME SPENT: More than 35 minutes MTDD
[2017-09-28] MEDS ORDERED: DECADRON 4 MG/ML SDV IVP STA (15:32)
[2017-09-28] MEDS: XALATAN OP SCH (20:40)
[2017-09-29] MEDS ORDERED: TYLENOL PO STA (00:37)
[2017-09-29] MEDS: PRILOSEC PO SCH (05:38)
[2017-09-29] MEDS: DUONEB NEB SCH ×2 (05:44→11:21)
[2017-09-29] MEDS: HUMULIN R SUBCUT PRN ×2 (06:24→11:49)
[2017-09-29] MEDS: NEURONTIN PO SCH (08:18)
[2017-09-29] MEDS: ZITHROMAX PO SCH (08:18)
[2017-09-29] MEDS: NORVASC PO SCH (08:18)
[2017-09-29] MEDS: ROCEPHIN 1 GM in SODIUM CHLORIDE 50 ML IV SCH (08:18)
[2017-09-29] MEDS: ZESTRIL PO SCH (08:19)
[2017-09-29] MEDS: LEVEMIR SUBCUT SCH (08:19)
[2017-09-29] MEDS: LIBRIUM PO SCH (08:19)
[2017-09-29] MEDS: NON-FORMULARY MEDICATION (Cyanocobalamin (Vitamin B-12) [B-12] 500 MCG) PO SCH (09:00)
--- NOTE | 2017-09-29 11:34 | PN ---
DATE OF SERVICE: 09/28/17 SUBJECTIVE: The patient was admitted with bilateral basilar pneumonia and fever. He is feeling somewhat better. Sugars are in the 200's. He is up and about walking. Less short of breath and no fever or chills. Coughing and not able to bring any phlegm. REVIEW OF SYSTEMS: CONSTITUTIONAL: No fever, no chills. HEENT: Normal. ENDOCRINE: No weight gain, no weight loss. CVS: No angina symptoms. No CHF symptoms. No palpitations. No atypical chest pain for CAD. No shortness of breath. No PND, no orthopnea. RESPIRATORY: Cough, no hemoptysis. GI: No nausea, no vomiting. No abdominal pain. : No hematuria. No polyuria. MUSCULOSKELETAL: No joint swelling. PSYCHIATRIC: Not anxious. No depression. No suicidal thoughts. No homicidal thoughts. SKIN: Intact. No rash. PHYSICAL EXAMINATION: V/S: Blood pressure 128/67, respiratory rate 24, heart rate 66, temperature 98.4 , saturation 93 on room air. HEENT: Normocephalic, atraumatic. Mucosa dry. Pallor positive. No icterus. NECK: Supple. No JVD, no carotid bruit. No lymphadenopathy. LUNGS: Basilar crackles. No rales or rhonchi. HEART: S1, S2 normal. No S3. No murmur, gallop or regurgitation. ABDOMEN: Soft, nontender. Bowel sounds active. No rigidity. No rebound or guarding. No CVA tenderness. EXTREMITIES: No pedal edema. No clubbing or cyanosis MUSCULOSKELETAL: No joint swelling. Right thumb partial amputation. NEUROLOGIC: Awake, alert, oriented times three. No focal deficit. LYMPHATIC: No lymph nodes palpable. SKIN: Intact. LABS: White count 6.78, hemoglobin 13.0, hematocrit 38.0, platelet count 148, sodium 142, potassium 4.0, chloride 108, bicarb 27, BUN 20, creatinine 1.03. ASSESSMENT: 1. BILATERAL BASILAR PNEUMONIA, COMMUNITY ACQUIRED 2. DIABETES 3. HYPERTENSION 4. DYSLIPIDEMIA 5. OSTEOARTHRITIS 6. POST HERPETIC NEURALGIA PLAN: 1. Continue Azithromycin. 2. Continue Rocephin. 3. Accuchecks with the coverage. 4. DuoNebs. 5. Will give a dose of Decadron. 6. Daily I & O's. TIME SPENT: More than 35 minutes MTDD
[2017-09-29 13:43] VITALS: BP 104/60; TEMP 97.7
--- NOTE | 2017-10-05 11:52 | DS ---
DATE OF SERVICE: 09/29/17 FINAL DIAGNOSIS: 1. COPD exacerbation secondary to the bilateral basilar pneumonia. 2. Hyper Diabetes, labile 3. Dehydration which is improved 4. Hypertension 5. Dyslipidemia 6. 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 9. Hearing loss 10.Cholecystectomy 11.Appendectomy 12.Back surgery 13.Pulmonary fibrosis 14.Coronary artery disease 15.Peripheral neuropathy 16.Subdural hematoma, 2017 which was treated conservatively DISCHARGE INSTRUCTIONS: Discharge the patient home. Continue the rest of the home medications. Accu- checks with coverage. MEDICATIONS AT DISCHARGE: Norvasc Librium Vitamin B12 Neurontin Levemir Xalatan eye drops Lisinopril Prilosec NEW PRESCRIPTIONS: Keflex 500mg twice a day for 5 days Prednisone 10mg twice a day for 5 days. DUO NEBS DIET INSTRUCTIONS: Consistent Carbohydrates ACTIVITY: Gradually resume as tolerated SMOKING: Former smoker. DISEASE SPECIFIC EDUCATION: Pneumonia/needing pneumonia vaccination COPD exacerbation Use of steroids and elevated blood sugars been discussed and verbalized understanding. HOSPITAL COURSE: ZapienLeroy segovia 86 year old male with history of COPD, Diabetes and shortness of breath came to the emergency room with fever, coughing and shortness of breath. Hypoxemia 92% on room air. Seen by Dr. Gann in the emergency room. CT chest showed the bilateral basilar pneumonia. At that time he was admitted to the hospital and started on the IV antibiotics and the breathing treatments. Wit the given treatment with patient was up and about walking less short of breath. Sugars were high which was covered with Accu-checks and coverage. Decadron was given which did help patient. The patient was up and about walking which did help the patient. Rocephin and Azithromycin did control patient's pneumonia. Repeat chest x-ray was clearing it up. Meanwhile the patient being up and about and walking did not have any problems, less short of breath. Blood sugars were controlled. At that time he is being discharged home. TIME SPENT: MORE THAN 60 MINUTES MTDD
== END 2017-09-29 14:12 | disposition home or self-care (01) | DRG 194 ==
LOC: ED 13:35 → MEDSURG A 16:16
PROVIDERS: ADMIT Emergency Medicine; ATTEND Emergency Medicine
DX: J18.9 Pneumonia, unspecified organism (principal); J44.1 Chronic obstructive pulmonary disease with (acute) exacerbation; B02.29 Other postherpetic nervous system involvement; K52.9 Noninfective gastroenteritis and colitis, unspecified; E11.65 Type 2 diabetes mellitus with hyperglycemia; R53.81 Other malaise; R53.1 Weakness; J84.10 Pulmonary fibrosis, unspecified; I25.10 Atherosclerotic heart disease of native coronary artery without angina pectoris; E86.0 Dehydration; I10 Essential (primary) hypertension; E78.5 Hyperlipidemia, unspecified; M19.90 Unspecified osteoarthritis, unspecified site; M47.9 Spondylosis, unspecified; G62.9 Polyneuropathy, unspecified; H91.90 Unspecified hearing loss, unspecified ear; H54.61 Unqualified visual loss, right eye, normal vision left eye; Z79.4 Long term (current) use of insulin; Z79.899 Other long term (current) drug therapy; Z77.22 Contact with and (suspected) exposure to environmental tobacco smoke (acute) (chronic)
CPT/HCPCS: 36415; 80053; 82803; 82962; 83605; 84145; 85025; 87040; 87070; 87502; 87651; 93005; 93010; 94640; 96365; 96375; 99284

== ENCOUNTER 2017-10-09 12:59 | Outpatient (CLI) | END 2017-10-09 13:00 | disposition home or self-care (01) | LOC: LAB 12:59 | PROVIDERS: ATTEND Emergency Medicine | DX: E11.9 Type 2 diabetes mellitus without complications (principal); Z79.4 Long term (current) use of insulin | CPT/HCPCS: 36415; 83037 ==

== ENCOUNTER 2017-12-07 15:26 | Outpatient (CLI) ==
--- NOTE | 2017-12-07 16:58 | DI ---
EXAM: Chest two views HISTORY: Acute upper respiratory infection, unspecified COMPARISON: 09/28/2017 TECHNIQUE: Two views of the chest were performed FINDINGS: Chronic bibasilar interstitial change. No definite superimposed infiltrate. There is no pleural effusion or pneumothorax. The heart is normal in size. The mediastinal contour is normal, n oting atherosclerosis. There are no acute abnormalities of the bones. IMPRESSION: Chronic bibasilar interstitial change that likely represents fibrosis. No definite new infiltrate.
== END 2017-12-07 15:27 | disposition home or self-care (01) ==
LOC: RAD 15:26
PROVIDERS: ATTEND Emergency Medicine
DX: J06.9 Acute upper respiratory infection, unspecified (principal)

== ENCOUNTER 2018-01-07 16:24 | Outpatient (CLI) | payer OTHER | END 2018-01-07 16:25 | disposition home or self-care (01) | LOC: LAB 16:24 | PROVIDERS: ATTEND Emergency Medicine | DX: E11.9 Type 2 diabetes mellitus without complications (principal); I10 Essential (primary) hypertension; E78.5 Hyperlipidemia, unspecified | CPT/HCPCS: 36415; 80053; 80061; 83036; 84443; 85025 ==

== ENCOUNTER 2018-01-31 16:19 | Inpatient (IN) ==
[2018-01-31 16:25] VITALS: BMI 25.7
--- NOTE | 2018-01-31 16:53 | ED.PDOC ---
General ED Provider: Dr. KEN RADER Chief Complaint: Weakness Stated Complaint: Weakness, Chest Congestion and Feeling Bad all over. Hospitalized with bilat pneumonia 2 mo ago and has never recovered. Has persisted cough and feeling of congestion Time Seen by Physician: 16:40 Mode of Arrival: Walk-In Information Source: Patient Exam Limitations: No limitations [facility] Nursing and Triage Documentation Reviewed and Agree: Yes Reviewed sepsis parameters & appropriate labs ordered?: Yes System Inflammatory Response Syndrome: Not Applicable Sepsis Protocol: For patient's 13 years and over: Temp is 96.8 and below OR 101 and greater Pulse >90 BPM Resp >20/minute Acutely Altered Mental Status Are patient's symptoms suggestive of a new infection, such as: -Pneumonia -Skin, Soft Tissue -Endocarditis -UTI -Bone, Joint Infection -Implantable Device -Acute Abdominal Infection -Wound Infection -Meningitis -Blood Stream Catheter Infection -Unknown System Inflammatory Response Syndrome: Not Applicable Respiratory Complaint Exam - Respiratory Complaint/Exam Symptoms Are: Still present Timing: Intermittent Initial Severity: Moderate Current Severity: Mild Location: Chest Character: Reports: Non-productive cough, Dry cough (Treated for pneumonia/ still had congestion in throat) Aggravating: Reports: Exertion Alleviating: Reports: None Associated Signs and Symptoms: Reports: Hoarseness. Denies: Rapid breathing, Dyspnea, Fever, Chills, Chest pain, Pleuritic chest pain, Wheezing, Hemoptysis, Dizziness, Calf pain, Calf swelling, Edema, URI, Nasal congestion, Sinus discomfort, Vomiting, Sore throat, Weight loss, Decreased oral intake, Increased thirst, Increased appetite, Increased urination Related History: Denies: Similar episode, Allergic reaction, Seasonal allergies , MRSA History of Healthcare-Acquired Pneumonia: No Related Surgical History: Reports: None Pulmonary Embolism Risk Factors: None Cardiac Risk Factors: Reports: None Pseudomonas Risk Factors: Reports: None Tuberculosis Risk Factors: Reports: None Status Asthmaticus Risk Factors: Reports: None Home Oxygen Use: No Current Antibiotic Use: No Current Asthma Medication Use: No Respiratory Distress: None Inadequate Respiratory Effort: No Dysphagia Present: No Stridor Present: No JVD Present: No Accessory Muscle Use: No Retractions: Not Present Diminished Breath Sounds: No Sinus Tenderness: None Grunting Respirations: No Kussmaul Respirations: No Differential Diagnoses: Pneumonia, Bronchospasm, Influenza Non-Traumatic Chest Pain Syncope: EKG Performed Review of Systems - Review Of Systems Constitutional: Reports: No symptoms, Malaise, Other (has good appetite -ate lunch today) Eyes: Reports: No symptoms Ears, Nose, Mouth, Throat: Reports: No symptoms Respiratory: Reports: No symptoms, Cough, Other (coarse congestion ) Cardiac: Reports: No symptoms GI: Reports: No symptoms : Reports: No symptoms Musculoskeletal: Reports: No symptoms Skin: Reports: No symptoms Neurological: Reports: No symptoms Endocrine: Reports: No symptoms Hematologic/Lymphatic: Reports: No symptoms All Other Systems: Reviewed and Negative Past Medical History - Past Medical History Previously Healthy: No Endocrine: Reports: DM 2, Dyslipidemia Cardiovascular: Reports: CAD, Hypertension Respiratory: Reports: COPD, Pneumonia (2 months ago) Hematological: Reports: Anemia Gastrointestinal: Reports: GERD Genitourinary: Reports: None Neuro/Psych: Reports: Anxiety Musculoskeletal: Reports: Arthritis, Back Pain, Joint Pain Cancer: Reports: None Other Pertinent Past Medical History: Shingles , 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 - Surgical History General Surgical History: Reports: None, Back Surgery, Other (sx stomach sx), Unknown - Family History Family History: Reports: None - Social History Smoking Status: Former smoker Hx Substance Use: No Alcohol Screening: None - Immunizations Influenza Vaccine within 12 Months: No Pneumococcal Vaccine up to Date: No Physical Exam - Physical Exam Appearance: Well-appearing, No pain distress (Elderly male in NAD) Ill-appearing: None Pain Distress: None Eyes: HAYDEE, EOMI, Conjunctiva clear ENT: Ears normal, Nose normal, Oropharynx normal Respiratory: Airway patent, Breath sounds clear, Breath sounds equal, Respirations nonlabored, Rhonchi, Wheezes (few in posterior chest field) Cardiovascular: RRR, Pulses normal, No rub, No murmur GI/: Soft, Nontender, No masses, Bowel sounds normal Musculoskeletal: Normal strength, ROM intact, No edema, No calf tenderness Skin: Warm, Dry, Normal color Neurological: Sensation intact, Motor intact, Reflexes intact, Cranial nerves intact, Alert, Oriented Psychiatric: Affect appropriate, Mood appropriate Interpretation - Radiology Interpretation Radiology Interpretation By: Radiologist Radiology Results: Positive Exam Interpreted: CT Scan Xray Comments: Bibasilar atelectasis and poss pneumonia Re-Evaluation - Re-Evaluation Time of Re-Evaluation: 18:00 Status: Unchanged Vital Signs Stable: Yes Appearance: NAD Lungs: Other (diminished bs plus crackles) Skin: Warm and Dry Neuro: Alert and Oriented X3 CV: RRR Physician Notification - Case Discussed Physician Notified: Dr Hood Time of Notification: 18:50 (discu case -agrees to admit) Critical Care Note - Critical Care Note Total Time (mins): 60 Course - Course Hematology/Chemistry: 01/31/18 17:10 01/31/18 17:10 Orders, Labs, Meds: Lab Review 01/31/18 01/31/18 17:10 17:10 WBC 5.18 RBC 4.41 L Hgb 12.9 L Hct 37.9 L MCV 85.9 MCH 29.3 MCHC 34.0 RDW Coeff of Oj 13.4 Plt Count 127 L Immature Gran % (Auto) 0.4 Neut % (Auto) 60.2 Lymph % (Auto) 25.3 [place] % (Auto) 11.2 H Eos % (Auto) 2.3 Baso % (Auto) 0.6 Immature Gran # (Auto) 0.0 Neut # (Auto) 3.1 Lymph # (Auto) 1.3 [place] # (Auto) 0.6 Eos # (Auto) 0.1 Baso # (Auto) 0.0 Sodium 139 Potassium 4.0 Chloride 106 Carbon Dioxide 22 L Anion Gap 15.0 BUN 14 Creatinine 1.21 H Estimated GFR (MDRD) 57.00 BUN/Creatinine Ratio 11.57 Glucose 240 H Calcium 9.2 Total Bilirubin 0.4 AST 15 ALT 23 Alkaline Phosphatase 68 Troponin I < 0.0100 Total Protein 6.4 Albumin 3.3 L Globulin 3.1 Albumin/Globulin Ratio 1.06 Orders Category Date Time Status EKG-(ED ONLY) Stat CARDIO 01/31/18 16:58 Completed IV [ED IV/MEDIPORT/POWERPORT] .ONCE EMERGENCY 01/31/18 18:54 Ordered BLOOD CULTURE (ED ONLY) Stat LAB 01/31/18 Ordered CBC W/ AUTO DIFF Stat LAB 01/31/18 17:10 Completed CMP [COMPREHENSIVE METABOLIC PANEL] Stat LAB 01/31/18 17:10 Completed TROPONIN I Stat LAB 01/31/18 17:10 Completed 0.9 % Sodium Chloride [Saline Flush] MEDS 01/31/18 18:54 Ordered 1 syr IVF PRN PRN Methylprednisolone Sod Succ/Pf [Solu-Medrol 125 mg] MEDS 01/31/18 18:54 Stat 125 mg IVP ONCE STA SODIUM CHLORIDE 0.9% @ 125 MLS/HR(500ml) MEDS 01/31/18 18:54 Ordered Sodium Chloride 0.9% [Sodium Chloride] 500 ml IV 125 mls/hr CT CHEST W/O CONTRAST Stat RADS 01/31/18 16:59 Completed Medications Generic Name Dose Route Start Last Admin Trade Name Freq PRN Reason Stop Dose Admin Sodium Chloride 500 mls @ 125 mls/hr 01/31/18 18:54 Sodium Chloride IV 01/31/18 22:53 .Q4H STA Sodium Chloride 1 syr 01/31/18 18:54 Saline Flush IVF PRN PRN To flush IV Discontinued Medications Generic Name Dose Route Start Last Admin Trade Name Freq PRN Reason Stop Dose Admin Methylprednisolone Sodium Succinate 125 mg 01/31/18 18:54 Solu-Medrol 125 Mg IVP 01/31/18 18:55 ONCE STA Vital Signs: Temp Pulse Resp BP Pulse Ox 01/31/18 16:21 97.7 F 59 L 20 150/77 H 96 Departure - Departure Time of Disposition: 18:50 Disposition: ADMITTED INPATIENT Discharge Problem: Pneumonia Discharge Problem: (Ruled Out): Pneumonia allergic Instructions: Pneumonitis (ED) Condition: Fair Pt referred to PMD for follow-up: Yes (Brissa CARROLL verified?: No Allergies/Adverse Reactions: Allergies No Known Allergies Allergy (Verified 01/31/18 16:24) Home Medications: Ambulatory Orders Latanoprost [Xalatan] 1 drop OP BEDTIME 05/11/17 Disposition Discussed With: Patient
--- NOTE | 2018-01-31 17:39 | CT ---
EXAM: CT chest without intravenous contrast 01/31/2018. Sagittal and coronal reformatted images obt ained HISTORY: Cough and congestion COMPARISON: 09/25/2017 FINDINGS: The heart size appears within normal limits. No pericardial effusion. Emphysematous changes within both lungs. Multifocal interstitial prominence likely due to a combinati on of atelectasis and pneumonitis. This appears similar in distribution as compared to the prior chandler dy. There is no pulmonary consolidation, effusion or pneumothorax. IMPRESSION: Persistent bilateral interstitial infiltrate superimposed on a background of chronic emp hysema. This is most prominent within the dependent aspect of the lower lobes. This likely represen ts a combination of atelectasis or pneumonitis. No focal consolidative pneumonia.
[2018-01-31] MEDS ORDERED: SODIUM CHLORIDE 500 ML IV STA (18:54)
[2018-01-31] MEDS ORDERED: SOLU-MEDROL 125 MG IVP STA (18:54)
[2018-01-31] MEDS ORDERED: VANCOMYCIN 1 GM in SODIUM CHLORIDE 250 ML IV STA (19:04)
[2018-01-31] MEDS ORDERED: LEVAQUIN 500 MG in PREMIX 100 ML D5W 1 BAG IV STA (19:04)
[2018-01-31] MEDS ORDERED: LEVAQUIN 100 ML IV ONE (19:07)
[2018-01-31] MEDS ORDERED: LOVENOX SUBCUT SCH (19:30)
[2018-01-31] MEDS ORDERED: ZESTRIL ONE (19:55)
[2018-01-31] MEDS ORDERED: NEURONTIN ONE (19:55)
[2018-01-31] MEDS ORDERED: HUMULIN R SUBCUT PRN (20:14)
[2018-01-31] MEDS: LEVEMIR SUBCUT SCH (20:22)
[2018-01-31] MEDS: XALATAN OP SCH (20:23)
[2018-01-31] MEDS ORDERED: NON-FORMULARY MEDICATION (Lisinopril [Lisinopril] 20 MG) PO SCH (21:00)
[2018-01-31] MEDS ORDERED: NON-FORMULARY MEDICATION (Gabapentin [Gabapentin] 600 MG) PO SCH (21:00)
[2018-02-01] MEDS: SODIUM CHLORIDE 1,000 ML IV SCH ×2 (02:13→16:03)
[2018-02-01] MEDS: SOLU-MEDROL 125 MG IVP SCH ×3 (04:40→21:59)
[2018-02-01] MEDS: PRILOSEC PO SCH (05:49)
[2018-02-01] MEDS: HUMULIN R SUBCUT PRN ×4 (06:03→21:47)
[2018-02-01] MEDS ORDERED: NON-FORMULARY MEDICATION (Amlodipine Besylate [Amlodipine Besylate] 10 MG) PO SCH (09:00)
[2018-02-01] MEDS ORDERED: PROTONIX PO SCH (09:00)
[2018-02-01] MEDS: ZESTRIL PO SCH ×2 (09:38→21:41)
[2018-02-01] MEDS: NEURONTIN PO SCH ×3 (09:38→21:41)
[2018-02-01] MEDS: NORVASC PO SCH (09:38)
[2018-02-01] MEDS: NON-FORMULARY MEDICATION (Cyanocobalamin (Vitamin B-12) [B-12] 500 MCG) PO SCH (09:39)
[2018-02-01] MEDS: LEVEMIR SUBCUT SCH ×2 (09:40→21:46)
[2018-02-01] MEDS: DUONEB NEB PRN ×3 (11:10→23:30)
[2018-02-01] MEDS: XALATAN OP SCH (21:41)
[2018-02-01] MEDS: LOVENOX SUBCUT SCH (21:42)
[2018-02-02] MEDS: SODIUM CHLORIDE 1,000 ML IV SCH ×2 (04:55→21:39)
[2018-02-02] MEDS: DUONEB NEB PRN (05:15)
[2018-02-02] MEDS: HUMULIN R SUBCUT PRN ×4 (05:44→21:41)
[2018-02-02] MEDS: PRILOSEC PO SCH (05:44)
[2018-02-02] MEDS: SOLU-MEDROL 125 MG IVP SCH ×3 (05:58→21:55)
[2018-02-02] MEDS: NORVASC PO SCH (09:22)
[2018-02-02] MEDS: ZESTRIL PO SCH ×2 (09:23→21:38)
[2018-02-02] MEDS: NEURONTIN PO SCH ×3 (09:23→21:38)
[2018-02-02] MEDS: LEVEMIR SUBCUT SCH ×2 (09:24→21:41)
[2018-02-02] MEDS: LEVAQUIN 500 MG in PREMIX 100 ML D5W 1 BAG IV SCH (09:27)
[2018-02-02] MEDS: NON-FORMULARY MEDICATION (Cyanocobalamin (Vitamin B-12) [B-12] 500 MCG) PO SCH (09:28)
[2018-02-02] MEDS: DUONEB NEB SCH ×3 (10:10→20:52)
[2018-02-02] MEDS: VANCOMYCIN 750 MG in SODIUM CHLORIDE 250 ML IV SCH ×2 (10:45→21:37)
[2018-02-02] MEDS: TYLENOL PO PRN (15:30)
[2018-02-02] MEDS: XALATAN OP SCH (21:38)
[2018-02-02] MEDS: LOVENOX SUBCUT SCH (21:42)
[2018-02-03] MEDS: TYLENOL PO PRN ×2 (01:50→23:04)
[2018-02-03] MEDS: DUONEB NEB SCH ×4 (04:57→20:35)
[2018-02-03] MEDS: PRILOSEC PO SCH (05:33)
[2018-02-03] MEDS: HUMULIN R SUBCUT PRN ×4 (05:50→21:08)
[2018-02-03] MEDS: SOLU-MEDROL 125 MG IVP SCH ×3 (06:46→21:08)
[2018-02-03] MEDS: LEVAQUIN 500 MG in PREMIX 100 ML D5W 1 BAG IV SCH (08:02)
[2018-02-03] MEDS: NORVASC PO SCH (08:02)
[2018-02-03] MEDS: ZESTRIL PO SCH ×2 (08:03→21:09)
[2018-02-03] MEDS: NEURONTIN PO SCH ×3 (08:03→21:09)
[2018-02-03] MEDS: NON-FORMULARY MEDICATION (Cyanocobalamin (Vitamin B-12) [B-12] 500 MCG) PO SCH (08:03)
[2018-02-03] MEDS: LEVEMIR SUBCUT SCH ×2 (08:04→21:08)
--- NOTE | 2018-02-03 09:18 | PN ---
DATE OF SERVICE: 02/02/18 SUBJECTIVE: The patient is admitted with bibasilar pneumonia, coughing productive of yellow- green phlegm. No fever, no chills. REVIEW OF SYSTEMS: CONSTITUTIONAL: No fever, no chills. HEENT: Normal. ENDOCRINE: No weight gain, no weight loss. CVS: No angina symptoms. No CHF symptoms. No palpitations. No atypical chest pain for CAD. No shortness of breath. No PND, no orthopnea. RESPIRATORY: Cough. No hemoptysis. GI: No nausea, no vomiting. No abdominal pain. : No hematuria. No polyuria. MUSCULOSKELETAL: No joint swelling. PSYCHIATRIC: Not anxious. No depression. No suicidal thoughts. No homicidal thoughts. SKIN: Intact. No rash. PHYSICAL EXAMINATION: V/S: BP 150/67, respiratory rate 18. Pulse 85. Temperature 98.4. Saturation 97% . He is up and about, wants to walk some but still has weakness. HEENT: Normocephalic, atraumatic. Mucosa dry. Pallor positive. No icterus. NECK: Supple. No JVD, no carotid bruit. No lymphadenopathy. LUNGS: Decreased basilar crackles. Clear to auscultation. No rales or rhonchi. HEART: S1, S2 normal. No S3. No murmur, gallop or regurgitation. ABDOMEN: Soft, nontender. Bowel sounds active. No rigidity. No rebound or guarding. No CVA tenderness. EXTREMITIES: No cyanosis, clubbing or pedal edema. MUSCULOSKELETAL: No joint swelling. NEUROLOGIC: Awake, alert, oriented times three. No focal deficit. LYMPHATIC: No lymph nodes palpable. SKIN: Intact. LABS: White count 12.0, hemoglobin 12.8, hematocrit 37.0, platelet count 150. Sodium 138, potassium 4.0, chloride 108, bicarb 17, BUN 21, creatinine 1.11. Glucose 323. ASSESSMENT: 1. BIBASILAR PNEUMONIA 2. UNCONTROLLED BLOOD SUGARS 3. HISTORY OF HYPERTENSION 4. DYSLIPIDEMIA 5. OSTEOARTHRITIS 6. STATUS POST HERPETIC NEURALGIA PLAN: 1. Continue Levaquin, Vancomycin 2. IV fluids 3. Accu-Cheks with coverage 4. Daily I & O's 5. Breathing treatment TIME SPENT: More than 35 minutes MTDD
[2018-02-03] MEDS: VANCOMYCIN 750 MG in SODIUM CHLORIDE 250 ML IV SCH ×2 (09:22→21:09)
--- NOTE | 2018-02-03 11:20 | HP ---
DATE OF SERVICE: 01/31/18 CHIEF COMPLAINT/HISTORY OF PRESENT ILLNESS: The patient came to the emergency room with cough, congestion and shortness of breath and had been going on and off for more than one month. The patient was treated for the bibasilar pneumonia last time and thinks that it's not been getting better. He has been tired, lethargic and dizziness. He came to the emergency room and was seen by Dr. Mcdonald. WBC was normal. CT chest showed the bibasilar atelectasis and bibasilar infiltrates and acute on chronic pneumonia. At that time the patient is being admitted for antibiotics and breathing treatments. REVIEW OF SYSTEMS: CONSTITUTIONAL: No fever, no chills. Weakness and tiredness. HEENT: Normal. ENDOCRINE: No weight gain; no weight loss. CVS: No chest pain. No PND, no orthopnea. No shortness of breath. No PND, no orthopnea. RESPIRATORY: Cough, Congestion. No hemoptysis. GI: No nausea, no vomiting. No abdominal pain. No melena. : No hematuria. No polyuria. MUSCULOSKELETAL: No joint swelling. PSYCHIATRIC: Not anxious. No depression. No suicidal thoughts. No homicidal thoughts. SKIN: Intact, no open lesions. 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 Lives with the . FAMILY HISTORY: Lung cancer MEDICATIONS: Xalatan Neurontin Omeprazole Lisinopril Pantoprazole One touch ultra DUO NEBS Cyanocobalamin Amlodipine Insulin, Levemir 40 units twice a day ALLERGIES: No known allergies PHYSICAL EXAMINATION: V/S: Blood pressure 150/77, respiratory rate 20, heart rate 59, temperature 97.7 with saturation 96%. HEENT: Atraumatic, normocephalic. No scleral icterus. Pallor positive. Mucosa dry. NECK: Supple. No JVD, no bruit. No lymphadenopathy. No thyromegaly. HEART: S1, S2 normal. No murmur. No cyanosis or clubbing. No ascites. LUNGS: Bibasilar crackles are present. Mild wheezing, expiratory Clear to auscultation. No rales or rhonchi. ABDOMEN: Soft, nontender. Bowel sounds are active. No CVA tenderness. No rigidity or guarding. EXTREMITIES: No pedal edema. No cyanosis or clubbing MUSCULOSKELETAL: Normal joints, no swelling. NEUROLOGIC: The patient is SKIN: Intact; no open lesions. LYMPHATIC: No lymph nodes palpable. ASSESSMENT: 1. Bibasilar pneumonia 2. COPD exacerbation 3. History of diabetes 4. Hypertension 5. Dyslipidemia 6. Osteoarthritis 7. DJD spine PLAN: 1. Admit patient to the regular floor 2. Solu-Medrol 125 Q 8 hours 3. IV fluids 4. Vancomycin 5. Rocephin 6. DUO NEBS 7. Daily I&O's 8. Accu checks with the coverage TIME SPENT: MORE THAN 70 minutes MTDD
--- NOTE | 2018-02-03 11:45 | PN ---
DATE OF SERVICE: 02/01/18 SUBJECTIVE: The patient is still weak and tired, coughing some but not able to get anything. Feels like some corn balls running in the chest, that was the expression of the patient. Not able to bring any phlegm. REVIEW OF SYSTEMS: CONSTITUTIONAL: No fever, no chills. HEENT: Normal. ENDOCRINE: No weight gain, no weight loss. CVS: No angina symptoms. No CHF symptoms. No palpitations. No atypical chest pain for CAD. No shortness of breath. No PND, no orthopnea. RESPIRATORY: Cough, no hemoptysis. GI: No nausea, no vomiting. No abdominal pain. : No hematuria. No polyuria. MUSCULOSKELETAL: No joint swelling. PSYCHIATRIC: Not anxious. No depression. No suicidal thoughts. No homicidal thoughts. SKIN: Intact. No rash. PHYSICAL EXAMINATION: V/S: Blood pressure 159/76, respiratory rate 16, heart rate 81, temperature 98. HEENT: Normocephalic, atraumatic. Mucosa dry. Pallor positive. No icterus. NECK: Supple. No JVD, no carotid bruit. No lymphadenopathy. LUNGS: Basilar crackles. present. Clear to auscultation. No rales or rhonchi. HEART: S1, S2 normal. No S3. No murmur, gallop or regurgitation. ABDOMEN: Soft, nontender. Bowel sounds active. No rigidity. No rebound or guarding. No CVA tenderness. EXTREMITIES: No cyanosis, clubbing or pedal edema. MUSCULOSKELETAL: No joint swelling. NEUROLOGIC: Awake, alert, oriented times three. No focal deficit. LYMPHATIC: No lymph nodes palpable. SKIN: Intact. LABS: WBC 5.31, hgb 13.3, hct 38.9, plt count 135, sodium 138, potassium 4.03, chloride 108, bicarb 22, BUN 15, creatinine 1.03, glucose 240 ASSESSMENT: 1. Bibasilar pneumonia 2. Diabetes 3. Hypertension 4. Osteoarthritis 5. DJD spine 6. Hepatic neuralgia 7. Anemia PLAN: 1. Rocephin 2. Vancomycin 3. Solu-Medrol 125 Q 8 hour 4. IV fluids 5. Daily I&O's TIME SPENT: More than 35 minutes MTDD
--- NOTE | 2018-02-03 15:33 | DI ---
EXAM: PA and lateral views of the chest HISTORY: Follow up interstitial opacities COMPARISON: CT chest 01/31/2018 and multiple priors FINDINGS: The cardiomediastinal silhouette is unchanged with atherosclerotic disease. There is no p neumothorax or pleural effusion. There are interstitial opacities throughout both lungs. Lungs are h yperinflated. There is no consolidation, nodule or mass. The osseous structures are unchanged. IMPRESSION: Interstitial opacities in the bilateral lungs are not significantly changed and may repr esent chronic process such as chronic obstructive pulmonary disease.
[2018-02-03] MEDS: SODIUM CHLORIDE 1,000 ML IV SCH ×2 (15:36→16:25)
[2018-02-03] MEDS: LOVENOX SUBCUT SCH (21:09)
[2018-02-03] MEDS: XALATAN OP SCH (21:09)
[2018-02-04] MEDS: DUONEB NEB SCH ×3 (05:52→14:18)
[2018-02-04] MEDS: PRILOSEC PO SCH (06:05)
[2018-02-04] MEDS: SOLU-MEDROL 125 MG IVP SCH (06:05)
[2018-02-04] MEDS: HUMULIN R SUBCUT PRN ×2 (06:06→11:26)
[2018-02-04] MEDS ORDERED: PREDNISONE PO SCH (08:30)
[2018-02-04] MEDS: ZESTRIL PO SCH (08:49)
[2018-02-04] MEDS: NEURONTIN PO SCH ×2 (08:49→14:42)
[2018-02-04] MEDS: NON-FORMULARY MEDICATION (Cyanocobalamin (Vitamin B-12) [B-12] 500 MCG) PO SCH (08:50)
[2018-02-04] MEDS: NORVASC PO SCH (08:50)
[2018-02-04] MEDS: SODIUM CHLORIDE 1,000 ML IV SCH (08:51)
[2018-02-04] MEDS: LEVEMIR SUBCUT SCH (08:52)
[2018-02-04] MEDS ORDERED: KEFLEX PO SCH (09:00)
[2018-02-04 14:37] VITALS: BP 134/69; TEMP 98
--- NOTE | 2018-02-26 11:19 | PN ---
DATE OF SERVICE: 02/03/18 SUBJECTIVE: The patient was admitted with COPD exacerbation and bronchitis. Cough and congestion is better. The patient is up and about walking and was able to eat a little bit better today. Sugars are up and down. REVIEW OF SYSTEMS: CONSTITUTIONAL: No fever, no chills. HEENT: Normal. ENDOCRINE: No weight gain, no weight loss. CVS: No angina symptoms. No CHF symptoms. No palpitations. No atypical chest pain for CAD. No shortness of breath. No PND, no orthopnea. RESPIRATORY: No cough, no hemoptysis. GI: No nausea, no vomiting. No abdominal pain. : No hematuria. No polyuria. MUSCULOSKELETAL: No joint swelling. PSYCHIATRIC: Not anxious. No depression. No suicidal thoughts. No homicidal thoughts. SKIN: Intact. No rash. PHYSICAL EXAMINATION: V/S: Blood pressure 146/80, respiratory rate 18, heart rate 86, temperature 97.8 with saturation 93 on room air. HEENT: Normocephalic, atraumatic. Mucosa dry. Pallor positive. No icterus. NECK: Supple. No JVD, no carotid bruit. No lymphadenopathy. LUNGS: Decreased and basilar crackles. Clear to auscultation. No rales or rhonchi. HEART: S1, S2 normal. No S3. No murmur, gallop or regurgitation. ABDOMEN: Soft, nontender. Bowel sounds active. No rigidity. No rebound or guarding. No CVA tenderness. EXTREMITIES: No cyanosis, clubbing or pedal edema. MUSCULOSKELETAL: No joint swelling. NEUROLOGIC: Awake, alert, oriented times three. No focal deficit. LYMPHATIC: No lymph nodes palpable. SKIN: Intact. LABS: WBC 12.0, hgb 12.8, hct 37.0, plt count 150, sodium 138, potassium 4.0, chloride 108, bicarb 17, BUN 21, creatinine 1.11 and glucose 323 ASSESSMENT: 1. COPD exacerbation 2. Bibasilar infiltrates 3. Chronic lung fibrosis 4. Diabetes 5. Hypertension 6. Post hepatic neuralgia 7. Osteoarthritis 8. DJD spine PLAN: 1. Continue to monitor the CBC and CMP 2. Continue Levaquin 3. DUO NEBS 4. Accu-checks with coverage 5. Lovenox for the DVT prophylaxis. TIME SPENT: More than 35 minutes MTDD
--- NOTE | 2018-03-03 08:34 | PN ---
DATE OF SERVICE: 02/03/18 SUBJECTIVE: The patient is still coughing some productive of yellow-green phlegm, otherwise no fever or chills. Shortness of breath with minimal exertion. REVIEW OF SYSTEMS: CONSTITUTIONAL: No fever, no chills. HEENT: Normal. ENDOCRINE: No weight gain, no weight loss. CVS: No angina symptoms. No CHF symptoms. No palpitations. No atypical chest pain for CAD. Shortness of breath on minimal exertion. No PND, no orthopnea. RESPIRATORY: Cough. No hemoptysis. GI: No nausea, no vomiting. No abdominal pain. : No hematuria. No polyuria. MUSCULOSKELETAL: No joint swelling. PSYCHIATRIC: Not anxious. No depression. No suicidal thoughts. No homicidal thoughts. SKIN: Intact. No rash. PHYSICAL EXAMINATION: V/S: BP 146/66, respiratory rate 18, heart rate 78, temperature 97.9, saturation 95. HEENT: Normocephalic, atraumatic. Mucosa dry, pallor positive. No icterus. NECK: Supple. No JVD, no carotid bruit. No lymphadenopathy. LUNGS: Decreased with fine crackles. No rales or rhonchi. HEART: S1, S2 normal. No S3. No murmur, gallop or regurgitation. ABDOMEN: Soft, nontender. Bowel sounds active. No rigidity. No rebound or guarding. No CVA tenderness. EXTREMITIES: No cyanosis, clubbing or pedal edema. MUSCULOSKELETAL: No joint swelling. NEUROLOGIC: Awake, alert, oriented times three. No focal deficit. LYMPHATIC: No lymph nodes palpable. SKIN: Intact. LABS: White count 12.0, hemoglobin 12.8, hematocrit 37.0, platelet count 150. Sodium 138, potassium 4.0, chloride 108, bicarb 17, BUN 21, creatinine 1.11, glucose 323. ASSESSMENT: 1. BIBASILAR PNEUMONIA 2. COPD EXACERBATION SECONDARY TO BIBASILAR PNEUMONIA 3. HYPERTENSION 4. DIABETES 5. DYSLIPIDEMIA 6. OSTEOARTHRITIS 7. HERPETIC NEURALGIA OF THE NECK 8. LEFT THUMB AMPUTATION PLAN: 1. Continue the Levaquin and Vancomycin, Duonebs 2. Accu-checks with coverage 3. CBC, CMP in the morning TIME SPENT: More than 35 minutes MTDD
--- NOTE | 2018-03-03 08:47 | DS ---
DATE OF SERVICE: 02/04/18 FINAL DIAGNOSIS: 1. BIBASILAR PNEUMONIA, COMMUNITY ACQUIRED 2. COPD EXACERBATION SECONDARY TO PNEUMONIA 3. HISTORY OF DIABETES 4. HYPERTENSION 5. DYSLIPIDEMIA 6. OSTEOARTHRITIS 7. DJD SPINE 8. POST HERPETIC CERVICAL NEURALGIA 9. MACULAR DEGENERATION 10. RIGHT THUMB AMPUTATION 11. CHOLECYSTECTOMY 12. COLON RESECTION 13. BACK SURGERY 14. TONSILLECTOMY 15. APPENDECTOMY DISCHARGE INSTRUCTIONS: 1. Discharge home 2. Followup in the office on 02/12/18 at 1:30 p.m. MEDICATIONS AT DISCHARGE: Norvasc Cyanocobalamin Neurontin Levemir 40 units subQ b.i.d. Duoneb Lisinopril Omeprazole Protonix Xalatan NEW PRESCRIPTIONS: Keflex 500 mg one twice a day for 5 days (antibiotic) next dose at bedtime Prednisone 10 mg one twice a day for 5 days, next dose at supper today DIET INSTRUCTIONS: Cardiac and diabetic diet ACTIVITY: Gradually resume as tolerated DISEASE SPECIFIC EDUCATION: Pneumonia and pneumonia vaccination discussed. Antibiotic use and diarrhea discussed. Verbalized understanding. HOSPITAL COURSE: This is an 87-year-old male with a history of COPD and diabetes, came to the emergency room with weakness, tiredness, cough and congestion, some shortness of breath on exertion. At that time, CT of the chest was done in the emergency room showing bibasilar pneumonia, acute on chronic. White count was normal. Sugars 240. BUN and creatinine normal. At that time, the patient was admitted to the hospital. In view of risks for hospital acquired pneumonia as the patient was recently discharged within two months from the hospital and there is pneumonia, the patient has been covered with Vancomycin and Levaquin, Solu- Medrol 80 q.8hr, Duonebs, IV fluids, Lovenox for DVT prophylaxis was given. Gradually the patient's shortness of breath was getting better. BUN and creatinine were stable. Hemoglobin was steady. Repeat chest x-ray was done which showed chronic bibasilar infiltrates, mostly significant for COPD but meanwhile the patient was up and about, was able to walk in the corridor. Sugars were controlled and shortness of breath was controlled. He did not have any complications during the hospital stay. The patient was discharged home. TIME SPENT: MORE THAN 65 MINUTES MTDD
== END 2018-02-04 15:25 | disposition home or self-care (01) | DRG 193 ==
LOC: ED 16:19 → MEDSURG A 18:58
PROVIDERS: ADMIT Emergency Medicine; ATTEND Emergency Medicine
DX: J18.8 Other pneumonia, unspecified organism (principal); J96.90 Respiratory failure, unspecified, unspecified whether with hypoxia or hypercapnia; J44.1 Chronic obstructive pulmonary disease with (acute) exacerbation; B02.29 Other postherpetic nervous system involvement; J70.8 Respiratory conditions due to other specified external agents; E11.8 Type 2 diabetes mellitus with unspecified complications; Z79.4 Long term (current) use of insulin; I10 Essential (primary) hypertension; E78.5 Hyperlipidemia, unspecified; M19.90 Unspecified osteoarthritis, unspecified site; H35.30 Unspecified macular degeneration; Z89.011 Acquired absence of right thumb; M47.9 Spondylosis, unspecified; D64.9 Anemia, unspecified; J84.10 Pulmonary fibrosis, unspecified; K21.9 Gastro-esophageal reflux disease without esophagitis; R49.0 Dysphonia; F41.9 Anxiety disorder, unspecified; Z87.891 Personal history of nicotine dependence; R06.02 Shortness of breath
CPT/HCPCS: 36415; 80053; 82962; 84484; 85025; 87040; 93005; 93010; 94640; 96361; 96365; 96375; 99223; 99233; 99239; 99285

== ENCOUNTER 2018-04-13 15:29 | Outpatient (CLI) | END 2018-04-13 15:30 | disposition home or self-care (01) | LOC: RHC-LAB 15:29 | PROVIDERS: ATTEND Emergency Medicine | DX: E11.9 Type 2 diabetes mellitus without complications (principal); I10 Essential (primary) hypertension; E78.5 Hyperlipidemia, unspecified | CPT/HCPCS: 36415; 80053; 80061; 83036; 84443 ==

== ENCOUNTER 2018-04-20 15:08 | Outpatient (POV) | END 2018-04-20 17:00 | LOC: OUTPT 15:08 | PROVIDERS: ATTEND Otolaryngology | DX: H90.5 Unspecified sensorineural hearing loss (principal) | CPT/HCPCS: 92557; 92567 ==

== ENCOUNTER 2018-08-30 07:24 | Emergency (ER) ==
[2018-08-30 07:32] VITALS: BP 177/80; TEMP 97.3; BMI 25.3
--- NOTE | 2018-08-30 08:10 | DI ---
EXAM: Chest two view, frontal and lateral views. HISTORY: Cough. COMPARISON: 02/03/2018, 09/25/2017, 08/22/2016. FINDINGS: The heart size is normal. There is no pulmonary vascular congestion. Atherosclerotic abdelrahman cifications present. Reticular opacities in a peripheral basilar distribution again noted throughout both lungs, similar to the prior study. No new opacities are seen. No pleural effusion or pneumoth orax identified. Degenerative changes present in the spine intra is. No pleural effusion or pneumot horax is seen. No acute osseous abnormality identified. IMPRESSION: Stable chronic interstitial changes. No new pulmonary findings
--- NOTE | 2018-08-30 08:28 | ED.PDOC ---
General ED Provider: Dr. YONNY FREEMAN Chief Complaint: Respiratory Complaint Stated Complaint: flu like symp Time Seen by Physician: 07:30 (seen with reddy at all times ) Mode of Arrival: Walk-In Information Source: Patient Exam Limitations: No limitations Primary Care Provider: PHAM CALL Nursing and Triage Documentation Reviewed and Agree: Yes Does patient meet sepsis criteria?: No System Inflammatory Response Syndrome: Not Applicable Sepsis Protocol: For patient's 13 years and over: Temp is 96.8 and below OR 101 and greater Pulse >90 BPM Resp >20/minute Acutely Altered Mental Status Are patient's symptoms suggestive of a new infection, such as: -Pneumonia -Skin, Soft Tissue -Endocarditis -UTI -Bone, Joint Infection -Implantable Device -Acute Abdominal Infection -Wound Infection -Meningitis -Blood Stream Catheter Infection -Unknown Respiratory Complaint Exam - Respiratory Complaint/Exam Onset/Duration: 2 days Symptoms Are: Still present Initial Severity: Mild Current Severity: None Location: Chest Character: Reports: Non-productive cough Aggravating: Reports: None Alleviating: Reports: Spontaneous resolution Associated Signs and Symptoms: Reports: URI, Nasal congestion. Denies: Rapid breathing, Dyspnea, Fever, Chills, Chest pain, Pleuritic chest pain, Wheezing, Hemoptysis, Dizziness, Calf pain, Calf swelling, Edema, Hoarseness, Sinus discomfort, Vomiting, Sore throat, Weight loss, Decreased oral intake, Increased thirst, Increased appetite, Increased urination Related History: Reports: Similar episode History of Healthcare-Acquired Pneumonia: No Related Surgical History: Reports: None Pulmonary Embolism Risk Factors: None Cardiac Risk Factors: Reports: None Pseudomonas Risk Factors: Reports: None Tuberculosis Risk Factors: Reports: None Status Asthmaticus Risk Factors: Reports: None Home Oxygen Use: No Recent Stress Test: No Recent Echo/LV Function: No Current Antibiotic Use: No Current Asthma Medication Use: No Respiratory Distress: None Inadequate Respiratory Effort: No Dysphagia Present: No Stridor Present: No JVD Present: No Accessory Muscle Use: No Retractions: Not Present Grunting Respirations: No Kussmaul Respirations: No Differential Diagnoses: Pneumonia, Bronchitis Review of Systems - Review Of Systems Constitutional: Reports: No symptoms Eyes: Reports: No symptoms Ears, Nose, Mouth, Throat: Reports: No symptoms Respiratory: Reports: Cough Cardiac: Reports: No symptoms GI: Reports: No symptoms : Reports: No symptoms Musculoskeletal: Reports: No symptoms Skin: Reports: No symptoms Neurological: Reports: No symptoms Endocrine: Reports: No symptoms Hematologic/Lymphatic: Reports: No symptoms All Other Systems: Reviewed and Negative Past Medical History - Past Medical History Previously Healthy: No Endocrine: Reports: DM 2, Dyslipidemia Cardiovascular: Reports: CAD, Hypertension Respiratory: Reports: COPD, Pneumonia (2 months ago) Hematological: Reports: Anemia Gastrointestinal: Reports: GERD Genitourinary: Reports: None Neuro/Psych: Reports: Anxiety Musculoskeletal: Reports: Arthritis, Back Pain, Joint Pain Cancer: Reports: None Other Pertinent Past Medical History: Shingles , 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 - Surgical History General Surgical History: Reports: None, Back Surgery, Other (sx stomach sx), Unknown - Family History Family History: Reports: None - Social History Smoking Status: Former smoker Hx Substance Use: No Alcohol Screening: None - Immunizations Influenza Vaccine within 12 Months: No Pneumococcal Vaccine up to Date: No Physical Exam - Physical Exam Appearance: Well-appearing, No pain distress, Well-nourished Eyes: HAYDEE, EOMI, Conjunctiva clear ENT: Ears normal, Nose normal, Oropharynx normal Respiratory: Breath sounds clear Cardiovascular: RRR, Pulses normal, No rub, No murmur GI/: Soft, Nontender, No masses, Bowel sounds normal, No Organomegaly Musculoskeletal: Normal strength, ROM intact, No edema, No calf tenderness Skin: Warm, Dry, Normal color Neurological: Sensation intact, Motor intact, Reflexes intact, Cranial nerves intact, Alert, Oriented Psychiatric: Affect appropriate, Mood appropriate Critical Care Note - Critical Care Note Total Time (mins): 0 Course - Course Hematology/Chemistry: 08/30/18 07:35 08/30/18 07:35 Orders, Labs, Meds: Lab Review 08/30/18 08/30/18 08/30/18 07:32 07:35 07:35 WBC 6.38 RBC 4.70 Hgb 13.3 L Hct 40.2 L MCV 85.5 MCH 28.3 MCHC 33.1 RDW Coeff of Oj 13.5 Plt Count 149 Immature Gran % (Auto) 0.6 Neut % (Auto) 73.7 Lymph % (Auto) 11.8 Kay % (Auto) 10.8 H Eos % (Auto) 2.5 Baso % (Auto) 0.6 Immature Gran # (Auto) 0.0 Neut # (Auto) 4.7 Lymph # (Auto) 0.8 Kay # (Auto) 0.7 Eos # (Auto) 0.2 Baso # (Auto) 0.0 Sodium 138.4 Potassium 4.07 Chloride 103.3 Carbon Dioxide 30.3 H Anion Gap 8.87 BUN 11.1 Creatinine 0.96 Estimated GFR (MDRD) 74.00 BUN/Creatinine Ratio 11.56 Glucose 118.4 H Lactic Acid Calcium 9.34 Total Bilirubin 0.54 AST 29.7 ALT 30.3 Alkaline Phosphatase 73.1 Total Protein 7.33 Albumin 4.19 Globulin 3.14 Albumin/Globulin Ratio 1.33 Influ A Molecular Assay Negative by naat Influ B Molecular Assay Negative by naat 08/30/18 07:35 WBC RBC Hgb Hct MCV MCH MCHC RDW Coeff of Oj Plt Count Immature Gran % (Auto) Neut % (Auto) Lymph % (Auto) Kay % (Auto) Eos % (Auto) Baso % (Auto) Immature Gran # (Auto) Neut # (Auto) Lymph # (Auto) Kay # (Auto) Eos # (Auto) Baso # (Auto) Sodium Potassium Chloride Carbon Dioxide Anion Gap BUN Creatinine Estimated GFR (MDRD) BUN/Creatinine Ratio Glucose Lactic Acid 1.06 Calcium Total Bilirubin AST ALT Alkaline Phosphatase Total Protein Albumin Globulin Albumin/Globulin Ratio Influ A Molecular Assay Influ B Molecular Assay Orders Category Date Time Status BLOOD CULTURE (ED ONLY) Stat LAB 08/30/18 07:35 Received CBC W/ AUTO DIFF Stat LAB 08/30/18 07:35 Completed COMPREHENSIVE METABOLIC PANEL Stat LAB 08/30/18 07:35 Completed FLU A/B MOLECULAR Stat LAB 08/30/18 07:32 Completed LACTIC ACID Stat LAB 08/30/18 07:35 Completed MOLECULAR GROUP A STREP Stat LAB 08/30/18 07:32 Completed PROCALCITONIN Stat LAB 08/30/18 07:35 Received CHEST, 2 VIEWS PA & LAT Stat RADS 08/30/18 07:35 Completed Vital Signs: Temp Pulse Resp BP Pulse Ox 08/30/18 07:26 97.3 F L 64 20 177/80 H 95 Departure - Departure Time of Disposition: 08:27 Disposition: HOME SELF-CARE Discharge Problem: Viral syndrome Instructions: Viral Syndrome (ED) Condition: Good Pt referred to PMD for follow-up: Yes IPMP verified?: No Additional Instructions: Please call your Family Physician as soon as possible to schedule a follow-up appointment. Allergies/Adverse Reactions: Allergies No Known Allergies Allergy (Verified 08/30/18 07:31) Home Medications: Ambulatory Orders Latanoprost [Xalatan] 1 drop OP BEDTIME 05/11/17 Disposition Discussed With: Patient
== END 2018-08-30 08:48 | disposition home or self-care (01) ==
LOC: ED 07:24
DX: B34.9 Viral infection, unspecified (principal)
CPT/HCPCS: 36415; 80053; 83605; 84145; 85025; 87040; 87502; 87651; 99283

== ENCOUNTER 2018-09-20 12:19 | Outpatient (CLI) | payer OTHER | END 2018-09-20 12:20 | disposition home or self-care (01) | LOC: RHC-LAB 12:19 → FCC-LAB 12:20 | PROVIDERS: ATTEND Nurse Practitioner Family | DX: R50.9 Fever, unspecified (principal); R51 Headache | CPT/HCPCS: 87502 ==

== ENCOUNTER 2018-09-29 13:00 | Outpatient (CLI) | payer OTHER ==
[2018-09-29] MEDS ORDERED: ALBUTEROL 0.083% NEB NEB STA (13:24)
== END 2018-09-29 13:01 | disposition home or self-care (01) ==
LOC: CAR 13:00
PROVIDERS: ATTEND Nurse Practitioner Family
DX: J44.9 Chronic obstructive pulmonary disease, unspecified (principal)

== ENCOUNTER 2018-11-15 12:30 | Outpatient (CLI) | payer OTHER | END 2018-11-15 12:31 | disposition home or self-care (01) | LOC: RHC-LAB 12:30 | PROVIDERS: ATTEND Nurse Practitioner Family | DX: E11.9 Type 2 diabetes mellitus without complications (principal); Z79.4 Long term (current) use of insulin | CPT/HCPCS: 36415; 83037 ==

== ENCOUNTER 2018-12-15 00:24 | Emergency (ER) ==
[2018-12-15 00:26] VITALS: BP 120/72; TEMP 98; BMI 23.7
[2018-12-15] MEDS ORDERED: LIDOCAINE HCL 1% SDV SUBCUT STA (00:27)
--- NOTE | 2018-12-15 01:20 | ED.PDOC ---
General ED Provider: Dr. ALEXANDRO GONZALEZ Chief Complaint: Finger Laceration Stated Complaint: sustained a laceration while trying to open a can of beans. Had some bleeding but controlled with pressure. Still able to move finger and sensation is intact. Accompanied by daughter Time Seen by Physician: 00:45 Mode of Arrival: Walk-In Information Source: Patient, Family Exam Limitations: Other (hearing imparement ) Primary Care Provider: PHAM CALL Nursing and Triage Documentation Reviewed and Agree: Yes Does patient meet sepsis criteria?: No System Inflammatory Response Syndrome: Not Applicable Sepsis Protocol: For patient's 13 years and over: Temp is 96.8 and below OR 101 and greater Pulse >90 BPM Resp >20/minute Acutely Altered Mental Status Are patient's symptoms suggestive of a new infection, such as: -Pneumonia -Skin, Soft Tissue -Endocarditis -UTI -Bone, Joint Infection -Implantable Device -Acute Abdominal Infection -Wound Infection -Meningitis -Blood Stream Catheter Infection -Unknown Skin Complaint Exam - Laceration/Abrasion/Hand Complaint/Exam Location of Injury: Right, Digit #1 Mechanism of Injury: Laceration, Sharp trauma Onset/Duration: just prior to arrival Symptoms Are: Still present Initial Severity: Severe Current Severity: Moderate Aggravating: Movement Alleviating: Compression Associated Signs and Symptoms: Denies: Fever, Chills, Erythema, Numbness, Tingling Related History: Reports: Right hand dominant Hand Picture: 1 - number seven shapped 5 cm laceration with oozing of blood Differential Diagnoses: Laceration Review of Systems - Review Of Systems Constitutional: Reports: No symptoms Eyes: Reports: No symptoms Ears, Nose, Mouth, Throat: Reports: No symptoms Respiratory: Reports: No symptoms Cardiac: Reports: No symptoms GI: Reports: No symptoms : Reports: No symptoms Musculoskeletal: Reports: No symptoms Skin: Reports: Other (right index finger laceration ) Neurological: Reports: Anxiety Endocrine: Reports: No symptoms Hematologic/Lymphatic: Reports: No symptoms All Other Systems: Reviewed and Negative Past Medical History - Past Medical History Previously Healthy: No Endocrine: Reports: DM 2, Dyslipidemia Cardiovascular: Reports: CAD, Hypertension Respiratory: Reports: COPD, Pneumonia (2 months ago) Hematological: Reports: Anemia Gastrointestinal: Reports: GERD Genitourinary: Reports: None Neuro/Psych: Reports: Anxiety Musculoskeletal: Reports: Arthritis, Back Pain, Joint Pain Cancer: Reports: None Other Pertinent Past Medical History: Shingles , 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 - Surgical History General Surgical History: Reports: None, Back Surgery, Other (sx stomach sx), Unknown - Family History Family History: Reports: None - Social History Smoking Status: Former smoker Hx Substance Use: No Alcohol Screening: None - Immunizations Tetanus Shot up to Date: Yes Influenza Vaccine within 12 Months: No Pneumococcal Vaccine up to Date: No Physical Exam - Physical Exam Appearance: Ill-appearing Ill-appearing: Mild Pain Distress: Moderate Respiratory: Airway patent Musculoskeletal: ROM intact Skin: Warm, Dry Neurological: Sensation intact (distal to the laceration ), Alert, Oriented ( [facility] ) Psychiatric: Anxious Procedures - Laceration/Wound Repair right index finger Wound Description: Irregular, Flap Wound Length (cm): 5 Wound Width: 1 Wound Depth: 1 Wound Explored: Clean Wound Irrigated: Yes Wound Prep: Saline, Hibiclens Anesthesia: Lidocaine Wound Repaired With: Sutures Suture Size and Type: 4.0 Ethlone Number of Sutures: 29 (all Running except 2 to hold edges ) Sterile Dressing Applied?: Yes Splint Applied?: Yes Sling Applied?: No Progress: Tolerated procedure well Critical Care Note - Critical Care Note Total Time (mins): 0 Course - Course Orders, Labs, Meds: Orders Category Date Time Status Lidocaine HCl/Pf [Lidocaine HCl 1% Sdv] MEDS 12/15/18 00:27 Discontinued 5 ml SUBCUT ONCE STA Medications Discontinued Medications Generic Name Dose Route Start Last Admin Trade Name Freq PRN Reason Stop Dose Admin Lidocaine HCl 5 ml 12/15/18 00:27 Lidocaine Hcl 1% Sdv SUBCUT 12/15/18 00:28 ONCE STA Vital Signs: Temp Pulse Resp BP Pulse Ox 12/15/18 00:24 98 F 68 14 120/72 95 Departure - Departure Time of Disposition: 01:21 Disposition: HOME SELF-CARE Discharge Problem: Laceration of finger Instructions: Finger Laceration (ED) Condition: Stable Pt referred to PMD for follow-up: Yes IPMP verified?: No Additional Instructions: Have suture removed in 7-10 days report any signs of infection or increased pain. Allergies/Adverse Reactions: Allergies No Known Allergies Allergy (Verified 12/15/18 00:26) Home Medications: Ambulatory Orders Latanoprost [Xalatan] 1 drop OP BEDTIME 05/11/17 Disposition Discussed With: Patient, Family
[2018-12-15] MEDS ORDERED: NORCO 5-325 PO STA (01:33)
== END 2018-12-15 01:47 | disposition home or self-care (01) ==
LOC: ED 00:24
DX: S61.210A Laceration without foreign body of right index finger without damage to nail, initial encounter (principal); W45.8XXA Other foreign body or object entering through skin, initial encounter
CPT/HCPCS: 96372; 99283

== ENCOUNTER 2019-05-01 13:08 | Emergency (ER) | payer OTHER ==
[2019-05-01 13:14] VITALS: BP 124/74; TEMP 97.8; BMI 25.7
[2019-05-01] MEDS ORDERED: LIDOCAINE HCL 1% SDV IM STA (13:17)
[2019-05-01] MEDS ORDERED: ROCEPHIN 1 GM VIAL IM STA (13:17)
[2019-05-01] MEDS ORDERED: DECADRON 4 MG/ML SDV IM STA (13:18)
[2019-05-01] MEDS ORDERED: XOPENEX 1.25 MG NEB STA (13:18)
--- NOTE | 2019-05-01 14:06 | CT ---
EXAM: CT of the chest without contrast History: Cough. Comparison: Chest CT 01/31/2018 Technique: Multiplanar CT images through the thorax were obtained without the administration of IV c ontrast Findings: Heart size is upper limits of normal. Coronary calcifications. No pericardial effusion. No thoracic aortic aneurysm. Small scattered mediastinal lymph nodes again noted. No axillary lymp hadenopathy. Evaluation for hilar lymph nodes is limited due to lack of contrast administration. Ca lcified granulomas are again seen. Emphysema again noted. Chronic interstitial lung disease with ba silar predominant pattern suggesting fibrosis. No consolidated pneumonia. No pleural fluid and no p neumothorax. No suspicious lung masses or lung nodules. Within the visualized upper abdomen, partially visualized simple cyst within the right kidney. No ac [place] osseous abnormalities. Diffuse idiopathic skeletal hyperostosis of the thoracic spine. Degenera tive changes of the left sternoclavicular joint Impression: 1. No evidence for pneumonia. 2. Emphysema and chronic interstitial lung disease with probable early pulmonary fibrosis similar to the prior study. 3. Coronary artery disease
--- NOTE | 2019-05-01 15:27 | CT ---
EXAM: CT abdomen and pelvis without contrast. HISTORY: Abdominal pain. TECHNIQUE: Multi-slice transaxial helical CT. Coronal and sagittal reformatons were performed. COMPARISON: 05/18/2000 FINDINGS: See same day CT chest for chest findings. Evaluation of the solid organs is limited without IV contrast. The spleen is normal in size. The ga llbladder is normal in size. The pancreas and the bilateral adrenal glands appear grossly unremarkab le. A simple cyst in the posterior right kidney measures up to 3.2 cm in size. No evidence of hydro nephrosis or renal calculus is seen. No intrahepatic biliary ductal dilation is seen. A few small s cattered calcified granulomas are seen within the liver. The bowel is not dilated. Multiple punctate metallic density structures/surgical clips are seen thro ughout the upper abdomen. The prostate is enlarged measuring up to 5.2 cm in transverse diameter. U rinary bladder appears grossly unremarkable. No pelvic free fluid is seen. Scattered diverticuli ar e seen within the colon. No definite evidence of appendix is seen. Moderate calcified plaques are p resent within the abdominal aorta. Ectasia of the infrarenal abdominal aorta measures up to 25 mm in diameter. No retroperitoneal adenopathy is seen. Mild bilateral sacroiliac joint osteoarthritis is seen. Osseous fusion changes of L4-L5 is seen. Moderate disc space narrowing and L5-S1 is seen. M oderate multilevel lumbar facet osteoarthritis is seen. Moderate-sized multilevel endplate osteophyt es are seen. IMPRESSION: 1. No acute abdominal findings. 2. No hydronephrosis, renal calculus, or bowel obstruction. 3. Limited mid exam without contrast. 4. Prostatic enlargement. 5. Colonic diverticulosis. 6. Other senescent and incidental findings as detailed above.
--- NOTE | 2019-05-01 15:42 | ED.PDOC ---
General ED Provider: Dr. KEN BAIG-ER Chief Complaint: Cough Stated Complaint: im coughing and having some congestion in the chest Time Seen by Physician: 13:10 Mode of Arrival: Walk-In Information Source: Patient, Family Exam Limitations: No limitations Primary Care Provider: PERCY NAGY Nursing and Triage Documentation Reviewed and Agree: Yes Does patient meet sepsis criteria?: No System Inflammatory Response Syndrome: Not Applicable Sepsis Protocol: For patient's 13 years and over: Temp is 96.8 and below OR 101 and greater Pulse >90 BPM Resp >20/minute Acutely Altered Mental Status Are patient's symptoms suggestive of a new infection, such as: -Pneumonia -Skin, Soft Tissue -Endocarditis -UTI -Bone, Joint Infection -Implantable Device -Acute Abdominal Infection -Wound Infection -Meningitis -Blood Stream Catheter Infection -Unknown Respiratory Complaint Exam - Respiratory Complaint/Exam Onset/Duration: 2 days Symptoms Are: Still present Timing: Constant Initial Severity: Mild Current Severity: Moderate Location: Chest Character: Reports: Productive cough Aggravating: Reports: URI Alleviating: Reports: None Associated Signs and Symptoms: Reports: URI, Nasal congestion Recent Stress Test: No Recent Echo/LV Function: No Current Antibiotic Use: No Current Asthma Medication Use: No Respiratory Distress: None Inadequate Respiratory Effort: No Dysphagia Present: No Stridor Present: No JVD Present: No Accessory Muscle Use: No Diminished Breath Sounds: No Sinus Tenderness: None Grunting Respirations: No Kussmaul Respirations: No Differential Diagnoses: COPD Exacerbation Review of Systems - Review Of Systems Constitutional: Reports: No symptoms Eyes: Reports: No symptoms Ears, Nose, Mouth, Throat: Reports: No symptoms Respiratory: Reports: Cough. Denies: Orthopnea, Short of air, Stridor Cardiac: Reports: No symptoms GI: Reports: No symptoms : Reports: No symptoms Musculoskeletal: Reports: No symptoms Skin: Reports: No symptoms Neurological: Reports: No symptoms Endocrine: Reports: No symptoms Hematologic/Lymphatic: Reports: No symptoms All Other Systems: Reviewed and Negative Past Medical History - Past Medical History Previously Healthy: No Endocrine: Reports: DM 2, Dyslipidemia Cardiovascular: Reports: CAD, Hypertension Respiratory: Reports: COPD, Pneumonia (2 months ago) Hematological: Reports: Anemia Gastrointestinal: Reports: GERD Genitourinary: Reports: None Neuro/Psych: Reports: Anxiety Musculoskeletal: Reports: Arthritis, Back Pain, Joint Pain Cancer: Reports: None Other Pertinent Past Medical History: Shingles , 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 - Surgical History General Surgical History: Reports: None, Back Surgery, Other (sx stomach sx), Unknown - Family History Family History: Reports: None - Social History Smoking Status: Former smoker Hx Substance Use: No Alcohol Screening: None - Immunizations Tetanus Shot up to Date: Yes Influenza Vaccine within 12 Months: No Pneumococcal Vaccine up to Date: No Physical Exam - Physical Exam Appearance: Well-appearing, No pain distress, Well-nourished Eyes: HAYDEE, EOMI, Conjunctiva clear ENT: Ears normal, Nose normal, Oropharynx normal Neck: Supple Respiratory: Rhonchi Cardiovascular: RRR GI/: Soft Musculoskeletal: Normal strength Skin: Warm, Dry, Normal color Neurological: Sensation intact, Motor intact, Reflexes intact, Cranial nerves intact, Alert, Oriented Psychiatric: Affect appropriate, Mood appropriate Interpretation - Radiology Interpretation Radiology Interpretation By: Radiologist Radiology Results: Negative Exam Interpreted: CT Scan - EKG Interpretation Time of EKG #1: 14:05 Rate: Normal Rhythm: Sinus Ectopy: None [place]: NL ST Segment: Normal Interpretation: nsr Critical Care Note - Critical Care Note Total Time (mins): 0 Course - Course Hematology/Chemistry: 05/01/19 13:36 05/01/19 13:36 Orders, Labs, Meds: Lab Review 05/01/19 05/01/19 05/01/19 13:16 13:36 13:36 WBC 5.55 RBC 4.58 L Hgb 13.3 L Hct 39.5 L MCV 86.2 MCH 29.0 MCHC 33.7 RDW Coeff of Oj 13.1 Plt Count 140 Immature Gran % (Auto) 0.4 Neut % (Auto) 67.0 Lymph % (Auto) 19.6 [place] % (Auto) 11.2 H Eos % (Auto) 1.4 Baso % (Auto) 0.4 Immature Gran # (Auto) 0.0 Neut # (Auto) 3.7 Lymph # (Auto) 1.1 [place] # (Auto) 0.6 Eos # (Auto) 0.1 Baso # (Auto) 0.0 Puncture Site Rr O2 Saturation 96.0 ABG pH 7.421 ABG pCO2 35.1 ABG pO2 77.0 L ABG HCO3 22.8 ABG Total CO2 24 ABG Base Excess -2 Abelardo Test + FiO2 % 21.0 Sodium 139.3 Potassium 4.16 Chloride 105.5 Carbon Dioxide 26.7 Anion Gap 11.26 BUN 11.3 Creatinine 1.10 Estimated GFR (MDRD) 63.00 BUN/Creatinine Ratio 10.27 Glucose 127.1 H Calcium 8.95 Total Bilirubin 0.57 AST 22.1 ALT 20.4 Alkaline Phosphatase 74.3 Total Creatine Kinase 52.4 L Troponin I < 0.012 NT-Pro-B Natriuret Pep 54.300 Total Protein 6.78 Albumin 3.89 Globulin 2.89 Albumin/Globulin Ratio 1.34 Amylase Lipase 05/01/19 13:36 WBC RBC Hgb Hct MCV MCH MCHC RDW Coeff of Oj Plt Count Immature Gran % (Auto) Neut % (Auto) Lymph % (Auto) [place] % (Auto) Eos % (Auto) Baso % (Auto) Immature Gran # (Auto) Neut # (Auto) Lymph # (Auto) [place] # (Auto) Eos # (Auto) Baso # (Auto) Puncture Site O2 Saturation ABG pH ABG pCO2 ABG pO2 ABG HCO3 ABG Total CO2 ABG Base Excess Abelardo Test FiO2 % Sodium Potassium Chloride Carbon Dioxide Anion Gap BUN Creatinine Estimated GFR (MDRD) BUN/Creatinine Ratio Glucose Calcium Total Bilirubin AST ALT Alkaline Phosphatase Total Creatine Kinase Troponin I NT-Pro-B Natriuret Pep Total Protein Albumin Globulin Albumin/Globulin Ratio Amylase 51.1 Lipase 46.4 Orders Category Date Time Status ABG DRAW REQUEST Stat CARDIO 05/01/19 13:16 Completed EKG-(ED ONLY) Stat CARDIO 05/01/19 13:16 Completed NEBULIZER TREATMENT Stat CARDIO 05/01/19 13:18 Completed ED TRIAGE ASSISTANT APPLIED .ONCE EMERGENCY 05/01/19 13:16 Active ABG Stat LAB 05/01/19 13:16 Completed AMYLASE Stat LAB 05/01/19 13:36 Completed BLOOD CULTURE (ED ONLY) Stat LAB 05/01/19 13:36 Received CBC W/ AUTO DIFF Stat LAB 05/01/19 13:36 Completed COMPREHENSIVE METABOLIC PANEL Stat LAB 05/01/19 13:36 Completed CREATINE KINASE Stat LAB 05/01/19 13:36 Completed LIPASE Stat LAB 05/01/19 13:36 Completed NT-PROBNP Stat LAB 05/01/19 13:36 Completed TROPONIN I Stat LAB 05/01/19 13:36 Completed Ceftriaxone 1 gm Vial [Rocephin 1 gm Vial] MEDS 05/01/19 13:17 Discontinued 1 gm IM ONCE STA Dexamethasone 4 mg/ml Inj [Decadron 4 mg/ml Sdv] MEDS 05/01/19 13:18 Discontinued 4 mg IM ONCE STA Levalbuterol HCl [Xopenex 1.25 mg] MEDS 05/01/19 13:18 Discontinued 1 vial NEB ONCE STA Lidocaine HCl/Pf [Lidocaine HCl 1% Sdv] MEDS 05/01/19 13:17 Discontinued 2.1 ml IM ONCE STA CT ABDOMEN/PELVIS WO CONTRAST Stat RADS 05/01/19 14:[address] CHEST W/O CONTRAST Stat RADS 05/01/19 13:17 Completed Medications Discontinued Medications Generic Name Dose Route Start Last Admin Trade Name Hairq PRN Reason Stop Dose Admin Ceftriaxone Sodium 1 gm 05/01/19 13:17 05/01/19 13:57 Rocephin 1 Gm Vial IM 05/01/19 13:18 1 gm ONCE STA Administration Dexamethasone Sodium Phosphate 4 mg 05/01/19 13:18 05/01/19 13:55 Decadron 4 Mg/Ml Sdv IM 05/01/19 13:19 4 mg ONCE STA Administration Levalbuterol HCl 1 vial 05/01/19 13:18 05/01/19 13:44 Xopenex 1.25 Mg NEB 05/01/19 13:19 1 vial ONCE STA Administration Lidocaine HCl 2.1 ml 05/01/19 13:17 05/01/19 13:57 Lidocaine Hcl 1% Sdv IM 05/01/19 13:18 2.1 ml ONCE STA Administration Vital Signs: Temp Pulse Resp BP Pulse Ox 05/01/19 13:08 97.8 F 53 L 24 124/74 97 Departure - Departure Time of Disposition: 15:42 Disposition: HOME SELF-CARE Discharge Problem: COPD exacerbation Instructions: COPD (Chronic Obstructive Pulmonary Disease) (ED) Condition: Good Pt referred to PMD for follow-up: Yes IPMP verified?: No Additional Instructions: augmenin 875mg bid x 7 days---mucinex 600mg bid #30--f/u with pcp Allergies/Adverse Reactions: Allergies No Known Allergies Allergy (Verified 12/15/18 00:26) Home Medications: Ambulatory Orders Latanoprost [Xalatan] 1 drop OP BEDTIME 05/11/17 Disposition Discussed With: Patient, Family
== END 2019-05-01 15:59 | disposition home or self-care (01) ==
LOC: ED 13:08
DX: J44.1 Chronic obstructive pulmonary disease with (acute) exacerbation (principal); R06.02 Shortness of breath; E11.9 Type 2 diabetes mellitus without complications; E78.5 Hyperlipidemia, unspecified; I10 Essential (primary) hypertension; I25.10 Atherosclerotic heart disease of native coronary artery without angina pectoris; D64.9 Anemia, unspecified
CPT/HCPCS: 36415; 80053; 82150; 82550; 82803; 83690; 83880; 84484; 85025; 87040; 90471; 93005; 93010; 94640; 96372; 99283

== ENCOUNTER 2019-06-18 18:06 | Observation (INO) ==
[2019-06-18 18:19] VITALS: BMI 24.4
[2019-06-18] MEDS ORDERED: NORVASC PO STA (18:22)
[2019-06-18] MEDS ORDERED: TRANDATE IVP STA (18:22)
--- NOTE | 2019-06-18 18:30 | ED.PDOC ---
General ED Provider: Dr. KEN HASSAN Chief Complaint: Headache Stated Complaint: crystal got a headache Time Seen by Physician: 11:02 Mode of Arrival: Walk-In Information Source: Patient Primary Care Provider: PERCY NAGY Nursing and Triage Documentation Reviewed and Agree: Yes Does patient meet sepsis criteria?: No System Inflammatory Response Syndrome: Not Applicable Sepsis Protocol: For patient's 13 years and over: Temp is 96.8 and below OR 101 and greater Pulse >90 BPM Resp >20/minute Acutely Altered Mental Status Are patient's symptoms suggestive of a new infection, such as: -Pneumonia -Skin, Soft Tissue -Endocarditis -UTI -Bone, Joint Infection -Implantable Device -Acute Abdominal Infection -Wound Infection -Meningitis -Blood Stream Catheter Infection -Unknown Neurological Complaint Exam Headache Complaint/Exam Onset: Gradual Duration: "all day" Symptoms Are: Still present Timing: Constant Initial Severity: Mild Current Severity: Moderate Location: Diffuse Character: Reports Dull, Throbbing and Pressure Alleviating: Reports None Associated Signs and Symptoms: Denies Dizziness, Seizure, Nausea, Vomiting, Sinus pressure, Fever, Neck pain, Neck stiffness, Decreased LOC and Visual changes Temporal Arteritis Risk Factors: Reports and Over 60 years old Normal Head CT Within Last 12 Months: No Papilledema Present: No Temporal Artery Tenderness: Present None Sinus Tenderness: Present None TMJ Tenderness: Present None Glascow Coma Scale (see protocol): 15 Meningeal Signs Positive: No Pain on Passive Flexion-Positive Kernig's: No ROM Limited In: No Limitiations Focal Weakness: Present None Focal Sensory Loss: Present None Gait: Normal Nystagmus Present: No Gag Reflex Present: Yes [id number]: Normal Findings Heel to Toe Normal: Yes Review of Systems Review Of Systems Constitutional: Reports No symptoms Eyes: Reports No symptoms Ears, Nose, Mouth, Throat: Reports No symptoms Respiratory: Reports No symptoms Cardiac: Reports No symptoms GI: Reports No symptoms : Reports No symptoms Musculoskeletal: Reports Neck pain Skin: Reports No symptoms Neurological: Reports Headache Endocrine: Reports No symptoms Hematologic/Lymphatic: Reports No symptoms All Other Systems: Reviewed and Negative [facility] Medical History Pneumonia Hypertension Hyperlipidemia Diabetes mellitus Family History Other No known health problems Social History Do you feel safe at home: Yes History of physical abuse: No History of emotional abuse: No History of sexual abuse: No Would you like helpful sources: No Smoking and tobacco status: Former smoker Physical Exam Physical Exam Appearance: Well-appearing Ill-appearing: None Pain Distress: Mild Eyes: HAYDEE, EOMI and Conjunctiva clear ENT: Ears normal Neck: Supple Respiratory: Airway patent Cardiovascular: RRR GI/: Soft Musculoskeletal: Normal strength Skin: Warm and Dry Neurological: Sensation intact, Motor intact, Reflexes intact, Alert and Oriented Psychiatric: Affect appropriate and Mood appropriate Physician Notification Case Discussed Physician Notified: dr saxena Time of Notification: 19:00 Critical Care Note Critical Care Note Total Time (mins): 0 Course Course Hematology/Chemistry: 06/18/19 18:33 06/18/19 18:33 Orders, Labs, Meds: Lab Review 06/18/19 06/18/19 06/18/19 18:33 18:33 18:33 WBC 6.21 RBC 4.82 Hgb 14.0 Hct 42.3 MCV 87.8 MCH 29.0 MCHC 33.1 RDW Coeff of Oj 13.1 Plt Count 143 Immature Gran % (Auto) 0.5 Neut % (Auto) 66.3 Lymph % (Auto) 20.0 [place] % (Auto) 10.0 Eos % (Auto) 2.6 Baso % (Auto) 0.6 Immature Gran # (Auto) 0.0 Neut # (Auto) 4.1 Lymph # (Auto) 1.2 [place] # (Auto) 0.6 Eos # (Auto) 0.2 Baso # (Auto) 0.0 ESR 7 Sodium 139.7 Potassium 3.86 Chloride 103.1 Carbon Dioxide 29.9 Anion Gap 10.56 BUN 13.5 Creatinine 1.02 Estimated GFR (MDRD) 69.00 BUN/Creatinine Ratio 13.23 Glucose 165.5 H Calcium 9.32 Total Bilirubin 0.53 AST 28.0 ALT 21.9 Alkaline Phosphatase 87.5 Troponin I < 0.012 Total Protein 7.66 Albumin 4.45 Globulin 3.21 Albumin/Globulin Ratio 1.38 Orders Category Date Time Status EKG-(ED ONLY) Stat CARDIO 06/18/19 18:22 Completed ED IV/MEDIPORT/POWERPORT .ONCE EMERGENCY 06/18/19 18:22 Active CBC W/ AUTO DIFF Stat LAB 06/18/19 18:33 Completed COMPREHENSIVE METABOLIC PANEL Stat LAB 06/18/19 18:33 Completed ESR Stat LAB 06/18/19 18:33 Completed TROPONIN I Stat LAB 06/18/19 18:33 Completed URINALYSIS WITH MICROSCOPIC Stat LAB 06/18/19 18:22 Uncollected 0.9 % Sodium Chloride [Saline Flush] MEDS 06/18/19 18:22 Active 1 syr IVF PRN PRN Acetaminophen [Tylenol] MEDS 06/18/19 19:43 Discontinued 650 mg PO ONCE STA Amlodipine Besylate [Norvasc] MEDS 06/18/19 18:22 Discontinued 5 mg PO ONCE STA CT CERVICAL SPINE W/O CONTRAST Stat RADS 06/18/19 18:[address] HEAD W/O CONTRAST Stat RADS 06/18/19 18:53 Completed Medications Generic Name Dose Route Start Last Admin Trade Name Freq PRN Reason Stop Dose Admin Acetaminophen 650 mg 06/18/19 20:35 Tylenol PO Q4H PRN Mild Pain Amlodipine Besylate 10 mg 06/19/19 09:00 06/19/19 09:25 Norvasc PO 10 mg DAILY ANTHONY Administration Atorvastatin Calcium 10 mg 06/19/19 17:00 Lipitor PO 1700 ANTHONY Gabapentin 600 mg 06/19/19 00:30 06/19/19 09:25 Neurontin PO 600 mg BID ANTHONY Administration Sodium Chloride 1,000 mls @ 75 mls/hr 06/18/19 21:00 06/18/19 22:52 Sodium Chloride IV 75 mls/hr .[id number] ANTHONY Administration Insulin Detemir 30 unit 06/19/19 09:00 06/19/19 09:27 Levemir SUBCUT 30 unit BID ANTHONY Administration Latanoprost 1 drop 06/19/19 00:30 06/19/19 00:45 Xalatan EACHEYE 1 drop BEDTIME ANTHONY Administration Lisinopril 40 mg 06/19/19 09:00 06/19/19 09:25 Zestril PO 40 mg DAILY ANTHONY Administration Non-Formulary Medication 500 mcg 06/19/19 00:30 06/19/19 09:26 Cyanocobalamin (Vitamin B-12) [Vitamin B-12] PO Not Given DAILY [facility] Pantoprazole Sodium 40 mg 06/19/19 06:30 06/19/19 05:39 Protonix PO 40 mg 0630 ANTHONY Administration Sodium Chloride 1 syr 06/18/19 18:22 06/18/19 22:52 Saline Flush IVF 1 syr PRN PRN Administration To flush IV Tamsulosin HCl 0.4 mg 06/19/19 00:30 06/19/19 09:25 Flomax PO 0.4 mg DAILY ANTHONY Administration Discontinued Medications Generic Name Dose Route Start Last Admin Trade Name Freq PRN Reason Stop Dose Admin Acetaminophen 650 mg 06/18/19 19:43 06/18/19 20:00 Tylenol PO 06/18/19 19:44 650 mg ONCE STA Administration Amlodipine Besylate 5 mg 06/18/19 18:22 06/18/19 18:45 Norvasc PO 06/18/19 18:23 5 mg ONCE STA Administration Insulin Detemir 40 unit 06/19/19 00:30 06/19/19 00:46 Levemir SUBCUT 40 unit BID ANTHONY Administration Nalbuphine HCl 5 mg 06/18/19 20:32 06/18/19 20:44 Nubain IVP 06/18/19 20:33 5 mg ONCE STA Administration Ondansetron HCl 4 mg 06/18/19 20:32 06/18/19 20:44 Zofran 4 Mg/2 Ml IVP 06/18/19 20:33 4 mg ONCE STA Administration Vital Signs: Temp Pulse Resp BP Pulse Ox 06/18/19 20:18 149/73 H 06/18/19 18:11 97.8 F 64 20 199/90 H 96 Discharge Plan Discharge Patient Disposition: PLACED OBSERVATION Discharge Problem: Hypertensive urgency, Headache ED Provider: SUSAN SAXENA Condition: Stable Discharge Date/Time: 06/18/19 21:25
--- NOTE | 2019-06-18 19:21 | ED.PDOC ---
General ED Provider: Dr. SUSAN SAXENA Chief Complaint: Headache Stated Complaint: Was seen in ER at the same time as who was admitted; stated that he felt like there was a film over his eyes and couldn't see well. Time Seen by Physician: 19:20 Mode of Arrival: Walk-In Information Source: Patient Primary Care Provider: PERCY NAGY Nursing and Triage Documentation Reviewed and Agree: Yes Does patient meet sepsis criteria?: No System Inflammatory Response Syndrome: Not Applicable Sepsis Protocol: For patient's 13 years and over: Temp is 96.8 and below OR 101 and greater Pulse >90 BPM Resp >20/minute Acutely Altered Mental Status Are patient's symptoms suggestive of a new infection, such as: -Pneumonia -Skin, Soft Tissue -Endocarditis -UTI -Bone, Joint Infection -Implantable Device -Acute Abdominal Infection -Wound Infection -Meningitis -Blood Stream Catheter Infection -Unknown Review of Systems Review Of Systems Constitutional: Reports No symptoms Neurological: Reports Headache All Other Systems: Reviewed and Negative [facility] Medical History (Updated 06/18/19 @ 22:01 by SOFY YANG RN) Pneumonia Hypertension Hyperlipidemia Diabetes mellitus Family History (Updated 06/18/19 @ 22:01 by SOFY YANG RN) Other No known health problems Social History Do you feel safe at home: Yes History of physical abuse: No History of emotional abuse: No History of sexual abuse: No Would you like helpful sources: No Smoking and tobacco status: Former smoker Physical Exam Physical Exam Appearance: Well-appearing Ill-appearing: None Pain Distress: None Eyes: HAYDEE, EOMI, Right pupil size (4 mm) and Left pupil size (4 mm) Neck: Supple Respiratory: Airway patent, Breath sounds clear and Respirations nonlabored Cardiovascular: RRR and Pulses normal Skin: Warm, Dry and Normal color Neurological: Sensation intact, Motor intact, Alert and Oriented Psychiatric: Affect appropriate and Mood appropriate Interpretation Radiology Interpretation Radiology Interpretation By: Radiologist Exam Interpreted: CT Scan Xray Comments: Head - negative/no acute IC process; C Spine - negative for FX/dislocation EKG Interpretation Time of EKG #1: 19:05 Rate: Normal Rhythm: Sinus Ectopy: None Midway: NL ST Segment: Normal Interpretation: 1st degree block; No acute changes Re-Evaluation Re-Evaluation Time of Re-Evaluation: 19:40 Status: Improved (BP lower; PRESSLEY still +; says started yesterday) Vital Signs Stable: Yes Appearance: NAD Neuro: Alert and Oriented X3 Physician Notification Case Discussed Physician Notified: Dr Salvador Time of Notification: 20:25 Critical Care Note Critical Care Note Total Time (mins): 10 Course Course Hematology/Chemistry: 06/18/19 18:33 06/18/19 18:33 Orders, Labs, Meds: Lab Review 06/18/19 06/18/19 06/18/19 18:33 18:33 18:33 WBC 6.21 RBC 4.82 Hgb 14.0 Hct 42.3 MCV 87.8 MCH 29.0 MCHC 33.1 RDW Coeff of Oj 13.1 Plt Count 143 Immature Gran % (Auto) 0.5 Neut % (Auto) 66.3 Lymph % (Auto) 20.0 [place] % (Auto) 10.0 Eos % (Auto) 2.6 Baso % (Auto) 0.6 Immature Gran # (Auto) 0.0 Neut # (Auto) 4.1 Lymph # (Auto) 1.2 [place] # (Auto) 0.6 Eos # (Auto) 0.2 Baso # (Auto) 0.0 ESR 7 Sodium 139.7 Potassium 3.86 Chloride 103.1 Carbon Dioxide 29.9 Anion Gap 10.56 BUN 13.5 Creatinine 1.02 Estimated GFR (MDRD) 69.00 BUN/Creatinine Ratio 13.23 Glucose 165.5 H Calcium 9.32 Total Bilirubin 0.53 AST 28.0 ALT 21.9 Alkaline Phosphatase 87.5 Troponin I < 0.012 Total Protein 7.66 Albumin 4.45 Globulin 3.21 Albumin/Globulin Ratio 1.38 Orders Category Date Time Status EKG-(ED ONLY) Stat CARDIO 06/18/19 18:22 Completed ED IV/MEDIPORT/POWERPORT .ONCE EMERGENCY 06/18/19 18:22 Active CBC W/ AUTO DIFF Stat LAB 06/18/19 18:33 Completed COMPREHENSIVE METABOLIC PANEL Stat LAB 06/18/19 18:33 Completed ESR Stat LAB 06/18/19 18:33 Completed TROPONIN I Stat LAB 06/18/19 18:33 Completed URINALYSIS WITH MICROSCOPIC Stat LAB 06/18/19 18:22 Uncollected 0.9 % Sodium Chloride [Saline Flush] MEDS 06/18/19 18:22 Active 1 syr IVF PRN PRN Acetaminophen [Tylenol] MEDS 06/18/19 19:43 Discontinued 650 mg PO ONCE STA Amlodipine Besylate [Norvasc] MEDS 06/18/19 18:22 Discontinued 5 mg PO ONCE STA CT CERVICAL SPINE W/O CONTRAST Stat RADS 06/18/19 18:[address] HEAD W/O CONTRAST Stat RADS 06/18/19 18:53 Completed Medications Generic Name Dose Route Start Last Admin Trade Name Oumou PRN Reason Stop Dose Admin Acetaminophen 650 mg 06/18/19 20:35 Tylenol PO Q4H PRN Mild Pain Amlodipine Besylate 10 mg 06/19/19 09:00 Norvasc PO DAILY ANTHONY Atorvastatin Calcium 10 mg 06/19/19 17:00 Lipitor PO 1700 ANTHONY Gabapentin 600 mg 06/19/19 00:30 06/19/19 00:45 Neurontin PO 600 mg BID ANTHONY Administration Sodium Chloride 1,000 mls @ 75 mls/hr 06/18/19 21:00 06/18/19 22:52 Sodium Chloride IV 75 mls/hr .[id number] ANTHONY Administration Insulin Detemir 40 unit 06/19/19 00:30 06/19/19 00:46 Levemir SUBCUT 40 unit BID ANTHONY Administration Latanoprost 1 drop 06/19/19 00:30 06/19/19 00:45 Xalatan EACHEYE 1 drop BEDTIME ANTHONY Administration Lisinopril 40 mg 06/19/19 09:00 Zestril PO DAILY [facility] Non-Formulary Medication 500 mcg 06/19/19 00:30 Cyanocobalamin (Vitamin B-12) [Vitamin B-12] PO DAILY [facility] Pantoprazole Sodium 40 mg 06/19/19 06:30 Protonix PO 0630 [facility] Sodium Chloride 1 syr 06/18/19 18:22 06/18/19 22:52 Saline Flush IVF 1 syr PRN PRN Administration To flush IV Tamsulosin HCl 0.4 mg 06/19/19 00:30 06/19/19 00:45 Flomax PO 0.4 mg DAILY ANTHONY Administration Discontinued Medications Generic Name Dose Route Start Last Admin Trade Name Oumou PRN Reason Stop Dose Admin Acetaminophen 650 mg 06/18/19 19:43 06/18/19 20:00 Tylenol PO 06/18/19 19:44 650 mg ONCE STA Administration Amlodipine Besylate 5 mg 06/18/19 18:22 06/18/19 18:45 Norvasc PO 06/18/19 18:23 5 mg ONCE STA Administration Nalbuphine HCl 5 mg 06/18/19 20:32 06/18/19 20:44 Nubain IVP 06/18/19 20:33 5 mg ONCE STA Administration Ondansetron HCl 4 mg 06/18/19 20:32 06/18/19 20:44 Zofran 4 Mg/2 Ml IVP 06/18/19 20:33 4 mg ONCE STA Administration Vital Signs: Temp Pulse Resp BP Pulse Ox 06/18/19 20:18 149/73 H 06/18/19 18:11 97.8 F 64 20 199/90 H 96 Discharge Plan Discharge Patient Disposition: PLACED OBSERVATION Discharge Problem: Hypertensive urgency, Headache ED Provider: SUSAN SAXENA Condition: Stable Discharge Date/Time: 06/18/19 21:25
[2019-06-18] MEDS ORDERED: TYLENOL PO STA (19:43)
--- NOTE | 2019-06-18 20:08 | CT ---
EXAM: CT Head HISTORY: Headache COMPARISON: 12/19/2016 TECHNIQUE: CT head performed without contrast FINDINGS: There is no mass effect, midline shift, or intracranial hemmorhage. Yoon white differenti ation is preserved. There is no extra-axial collection. Basal cisterns are patent. Increased symme tric prominence the ventricular system and sulci. Moderate periventricular and subcortical white mat ter hypoattenuation. There is no depressed calvarial fracture. The mastoid air cells are clear. The visualized paranasal sinuses are clear. IMPRESSION: 1. No acute intracranial abnormality. 2. Chronic small vessel ischemic changes and generalized atrophy.
--- NOTE | 2019-06-18 20:12 | CT ---
EXAM: CT scan cervical spine HISTORY: Pain COMPARISON: CT scan cervical spine 08/22/2016 FINDINGS: Contiguous axial images obtained through the cervical spine utilizing 2-mm collimation. S agittal and coronal reconstructions were imaged and reviewed.. There is mild listhesis. The vertebr al bodies normal height and alignment. 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 Facet joints are intact. Bulky ventral osteophytes extend from C4 through C7... There is multi level facet arthropa thy with multilevel neural foraminal narrowing IMPRESSION: No acute findings.
[2019-06-18] MEDS ORDERED: ZOFRAN 4 MG/2 ML IVP STA (20:32)
[2019-06-18] MEDS ORDERED: NUBAIN IVP STA (20:32)
[2019-06-18] MEDS ORDERED: TYLENOL PO PRN (20:35)
[2019-06-18] MEDS: SODIUM CHLORIDE 1,000 ML IV SCH (22:52)
[2019-06-19] MEDS ORDERED: LEVEMIR SUBCUT SCH (00:30)
[2019-06-19] MEDS: XALATAN EACHEYE SCH ×2 (00:45→21:44)
[2019-06-19] MEDS: FLOMAX PO SCH ×2 (00:45→09:25)
[2019-06-19] MEDS: NEURONTIN PO SCH ×3 (00:45→21:44)
[2019-06-19] MEDS: PROTONIX PO SCH (05:39)
[2019-06-19] MEDS: ZESTRIL PO SCH (09:25)
[2019-06-19] MEDS: NORVASC PO SCH (09:25)
[2019-06-19] MEDS: NON-FORMULARY MEDICATION (Cyanocobalamin (Vitamin B-12) [Vitamin B-12] 500 MCG) PO SCH (09:26)
[2019-06-19] MEDS: LEVEMIR SUBCUT SCH ×2 (09:27→21:45)
[2019-06-19] MEDS: SODIUM CHLORIDE 1,000 ML IV SCH (14:17)
[2019-06-19] MEDS: LIPITOR PO SCH (16:05)
[2019-06-20] MEDS: SODIUM CHLORIDE 1,000 ML IV SCH ×2 (06:08→17:50)
[2019-06-20] MEDS: PROTONIX PO SCH (06:08)
[2019-06-20] MEDS: FLOMAX PO SCH (10:22)
[2019-06-20] MEDS: NORVASC PO SCH (10:22)
[2019-06-20] MEDS: ZESTRIL PO SCH (10:22)
[2019-06-20] MEDS: NEURONTIN PO SCH ×2 (10:23→21:16)
[2019-06-20] MEDS: NON-FORMULARY MEDICATION (Cyanocobalamin (Vitamin B-12) [Vitamin B-12] 500 MCG) PO SCH (10:25)
[2019-06-20] MEDS: LEVEMIR SUBCUT SCH ×2 (10:25→21:16)
--- NOTE | 2019-06-20 10:53 | US ---
EXAM: Carotid ultrasound HISTORY: Post concussion syndrome COMPARISON: 10/20/2014 TECHNIQUE: Carotid ultrasound was performed using Duplex imaging with mixon scale, color, and Doppler imaging performed. FINDINGS: Right carotid: There is mild atherosclerotic plaque in the common carotid and bulb/internal carotid artery. Peak systolic velocity measurement in the right internal carotid artery is 0.91 meters per s econd. End-diastolic velocity measurement in the right internal carotid artery is 0.15 meters per se cond. Right internal to common carotid artery peak systolic velocity ratio is 1.4. Flow in the righ t vertebral artery is antegrade. Left carotid: There is mild atherosclerotic plaque in the common carotid and bulb/internal carotid a rtery. Peak systolic velocity measurement in the left internal carotid artery is 0.73 meters per sec ond. End-diastolic velocity measurement in the left internal carotid artery is 0.12 meters per secon d. Left internal to common carotid artery peak systolic velocity ratio measures 1.0. Flow in the le ft vertebral artery is antegrade. IMPRESSION: 1. Right internal carotid: Peak systolic velocity corresponds with mild (less than 50%) stenosis 2. Left internal carotid: Peak systolic velocity corresponds with mild (less than 50%) stenosis.
--- NOTE | 2019-06-20 15:27 | MRI ---
EXAM: Brain MRI without contrast. HISTORY: Post concussion syndrome. COMPARISON: Brain MRI 05/22/2017, head CT 06/18/2019, head CT 03/28/[address] 08/15/2013. TECHNIQUE: Multiplanar, multisequence MR images were acquired of the brain without contrast. FINDINGS: The midline structures are central and the craniocervical junction is unremarkable. There is moderate lateral and third ventriculomegaly and the distance between the frontal horns is 4.8 cm and the third ventricle 11.2 mm in transverse diameter. Mildly increased from the remote 08/15/[address] scan where the distance between the frontal horns was 4.5 cm and the third ventricle 1 cm in transverse diameter. There is mild to moderate widening of the sulci and mild prominence of the cere bellar fissures. There is mild enlargement of the subarachnoid space around both cerebellar hemisphe res. These findings are compatible with central greater than peripheral volume loss or mild chronic hydrocephalus superimposed on atrophy. There are no abnormal extra-axial fluid collections. There i s minor leptomeningeal thickening along the left frontal calvarium. This may represent a reactive pa chymeningitis relate to previous subdural hemorrhages. The brain parenchyma has no diffusion restriction to suggest acute hypoperfusion or infarction. 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 This has not significantly increased compared to the 2017 brain MRI. There is a chronic lacuna in the left posterior external capsule. There are no abnormal foci of dark gradi ent echo signal. There is mild upward bowing of the corpus callosum. The pituitary gland is small w ith a concave superior border consistent with at least a partial empty sella. There are no intraorbital masses. There has been previous lens surgery bilaterally. Mild mucosal th ickening is present in the frontal sinus, ethmoid air cells bilaterally and left maxillary sinus. Th ere is a moderate amount of fluid in the left maxillary sinus which is complex and has heterogeneous intermediate and bright T1, bright and dark T2 signal compatible with calcification, serosanguineous debris or proteinaceous material. Middle ears and mastoids are unremarkable. Expected flow voids are present in the major intracranial arteries and dural venous sinuses. IMPRESSION: 1. 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 2. No change mild to moderate chronic ischemic small vessel disease in the supratentorial white esme er and chronic lacuna left posterior external capsule. 3. No intracranial hemorrhage, mass or acute cerebral infarct. 4. Partial empty sella. 5. 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
[2019-06-20] MEDS: LIPITOR PO SCH (17:27)
--- NOTE | 2019-06-20 18:06 | MRI ---
EXAM: [place] [facility] [place] MR angiogram without contrast. HISTORY: Post concussion syndrome. COMPARISON: Brain MRI 06/20/2019. TECHNIQUE: 3-D [id number] MR angiography was acquired through the [place] [facility] [place] without contr ast. FINDINGS: The right internal carotid artery has no flow-limiting stenoses from the distal cervical s egment to the intracranial bifurcation. The right posterior communicating artery is present. There is a large right M2 posterior division with a 30-40% stenosis at the origin and proximal 3 mm and a s mall right anterior M2 division with a proximal greater than 70% 1-2 mm stenosis just beyond the orig in. The right anterior cerebral artery is normal and gives off a small branch that courses medially towards the left anterior cerebral artery without clear communication. This may represent a small me dial branch or a partially visualized anterior communicating artery. The former is favored. The left internal carotid artery has no flow limiting stenoses from the distal cervical segment to th e intracranial bifurcation. The left anterior cerebral artery has no flow-limiting stenoses. The le ft middle cerebral artery has no flow-limiting stenoses to its bifurcation. There is mild to moderat e tapering of the distal left M1 segment to its bifurcation and mild to moderate narrowing of the dis malcolm left A1 segment that extends from 5 mm to near the expected location of the anterior communicatin g artery which is not identified. There is a small partially visualized left posterior communicating artery with a greater than 70% stenosis in its midsection. The right vertebral artery is mildly dominant to the left and is without flow-limiting stenosis to th e vertebrobasilar junction. It forms the dominant blood supply to the basilar artery and has mild ta pering distally. The left vertebral artery is mildly smaller than the right and has moderate taperin g after the origin of the left posterior inferior cerebellar artery and it becomes very small at the vertebrobasilar junction. The basilar artery has a 30-40% stenosis in the mid basilar artery that ex tends for 4 mm and in the vessel mildly enlarges to the bifurcation. There is a 50-60% stenosis at the origin and proximal 1.5 mm of the left posterior cerebral artery P1 segment and a 4 mm, greater than 70% stenosis in the proximal left P1 segment. There is a third 50- 60% stenosis in the proximal left P2 segment just beyond the junction with the posterior communicatin g artery. There is moderate narrowing of the distal 3 mm of the left P2 segment and a high-grade st enosis or near occlusion at the origin of the lateral branch with pruning distally and occlusion of t he medial branch. These findings may be artifactually accentuated by small vessel size and slow flow . The right posterior cerebral artery has mild to moderate tapering and a moderate 2 mm distal stenosis to just proximal to the bifurcation and there is a greater than 70% stenosis at the origin of the la teral branch with pruning distally and mild to moderate narrowing of the proximal medial branch with pruning distally. These findings may be artifactually accentuated by small vessel size and slow flow . IMPRESSION: 1. No flow-limiting stenoses are present in the major arteries of the anterior circulation of the ci rcle of [place]. 2. Small right anterior to the lesion with a greater than 70% proximal stenosis. 3. No focal flow-limiting stenoses are present in the vertebrobasilar system. There is mild to mode rate tapering of the mid basilar artery. 4. 50-60% stenosis origin and proximal 1.5 mm left P1 segment, greater than 70% stenosis proximal le ft P1 segment and a 50-60% stenosis proximal left P2 segment and high-grade stenosis or near occlusio n lateral branch and occlusion of medial branch. 5. Moderate 2 mm distal stenosis right P2 segment and 70% stenosis origin, lateral branch with pruni ng of the medial and lateral branches.
[2019-06-20] MEDS: XALATAN EACHEYE SCH (21:16)
[2019-06-21] MEDS: SODIUM CHLORIDE 1,000 ML IV SCH (05:56)
[2019-06-21] MEDS: PROTONIX PO SCH (05:56)
[2019-06-21] MEDS: NON-FORMULARY MEDICATION (Cyanocobalamin (Vitamin B-12) [Vitamin B-12] 500 MCG) PO SCH (08:27)
[2019-06-21] MEDS: NORVASC PO SCH (08:28)
[2019-06-21] MEDS: ZESTRIL PO SCH (08:28)
[2019-06-21] MEDS: FLOMAX PO SCH (08:28)
[2019-06-21] MEDS: NEURONTIN PO SCH (08:29)
[2019-06-21] MEDS: LEVEMIR SUBCUT SCH (08:30)
[2019-06-21 11:07] VITALS: BP 142/68; TEMP 98.6
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
== END 2019-06-21 13:50 | disposition home or self-care (01) ==
LOC: MEDSURG B 18:06 → ED 18:06 → MEDSURG B 21:25
PROVIDERS: ADMIT General Practice; ATTEND General Practice
DX: E11.9 Type 2 diabetes mellitus without complications; I10 Essential (primary) hypertension; H53.8 Other visual disturbances; E78.5 Hyperlipidemia, unspecified; I16.0 Hypertensive urgency; R51 Headache; M54.2 Cervicalgia

== ENCOUNTER 2021-08-22 11:30 | Observation (INO) ==
[2021-08-22] MEDS ORDERED: SODIUM CHLORIDE 1,000 ML IV STA (11:47)
[2021-08-22 12:16] LABS: BORDETELLA PARAPERTUSSIS (PCR) NOT DETECTED (NOT DETECT); BORDETELLA PERTUSSIS (PCR) NOT DETECTED (NOT DETECT); CHLAMYDIA PNEUMONIAE (PCR) NOT DETECTED (NOT DETECT); CORONAVIRUS 229E (PCR) NOT DETECTED (NOT DETECT); CORONAVIRUS HKU1 (PCR) NOT DETECTED (NOT DETECT); CORONAVIRUS NL63 (PCR) NOT DETECTED (NOT DETECT); CORONAVIRUS OC43 (PCR) NOT DETECTED (NOT DETECT); HUMAN METAPNEUMOVIRUS (PCR) NOT DETECTED (NOT DETECT); HUMAN RHINOVIRUS/ENTEROV (PCR) NOT DETECTED (NOT DETECT); INFLUENZA B (PCR) NOT DETECTED (NOT DETECT); MYCOPLASMA PNEUMONIAE (PCR) NOT DETECTED (NOT DETECT); PARAINFLUENZA VIRUS 1 (PCR) NOT DETECTED (NOT DETECT); PARAINFLUENZA VIRUS 2 (PCR) NOT DETECTED (NOT DETECT); PARAINFLUENZA VIRUS 3 (PCR) NOT DETECTED (NOT DETECT); PARAINFLUENZA VIRUS 4 (PCR) NOT DETECTED (NOT DETECT); RESPIRATORY SYNCYTIAL V (PCR) NOT DETECTED (NOT DETECT)
[2021-08-22 12:16] LABS: ABG O2 HGB 92.6 % (95-100); ABG PH 7.47 (7.35-7.45); BEecf 0.3 (-2.0-3.0); COHb 1.6 (0.5-1.5); sO2 93.2 % (94-98); tHb 15.6 g/dl (11.7-17.4)
[2021-08-22 12:17] LABS: BASOPHILS % (AUTO) 0.2 % (0.0-3.0); EOSINOPHILS % (AUTO) 0.2 % (0.0-7.0); HEMATOCRIT 47.7 % (42.0-52.0); IMMATURE GRANULOCYTE # (AUTO) 0.3 (0.0-1.0); IMMATURE GRANULOCYTE % (AUTO) 1.6 % (0.0-5.0); LYMPHOCYTES # (AUTO) 0.6 K/uL (0.60-3.4); LYMPHOCYTES % (AUTO) 3.6 (10.0-50.0); MEAN CORPUSCULAR HGB CONC 33.5 (31.8-35.4); MEAN CORPUSCULAR VOLUME 83.5 fl (80.0-94.0); MONOCYTES # (AUTO) 1.4 K/uL (0.4-2.0); MONOCYTES % (AUTO) 8.1 (0-10); NEUTROPHILS # (AUTO) 14.6 K/ul (2.0-6.9); NEUTROPHILS % (AUTO) 86.3 % (42.2-75.2); PLATELET COUNT 257 10^3/uL (140-440); RDW COEFFICIENT OF VARIATION 12.8 % (11.6-14.8); RED BLOOD COUNT 5.71 10^6/ul (4.70-6.10); WHITE BLOOD COUNT 16.89 K/ul (4.2-10.2)
[2021-08-22 12:30] LABS: ALANINE AMINOTRANSFERASE 54.9 U/L (0-50); ALBUMIN 4.15 g/dL (3.5-5.0); ALKALINE PHOSPHATASE 71.5 U/L (56-119); AMYLASE 108.4 U/L (30-110); ASPARTATE AMINO TRANSFERASE 48.9 U/L (17-59); BILIRUBIN,TOTAL 0.66 mg/dL (0.2-1.3); CALCIUM 9.54 mg/dL (8.4-10.2); CARBON DIOXIDE 28.2 mmol/L (22-30.0); CHLORIDE 104.5 mmol/L (98-107); CREATINE KINASE 28.2 U/L (55-170); CREATININE 1.32 mg/dL (0.60-1.10); MAGNESIUM 2.85 mg/dL (1.6-2.3); POTASSIUM 3.98 mmol/L (3.5-5.1); SODIUM 141.3 mmol/L (134.5-145); TOTAL PROTEIN 7.89 g/dL (6.3-8.2); URIC ACID 9.88 mg/dL (3.5-8.5)
[2021-08-22 12:40] LABS: TROPONIN I 0.016 ng/ml (0.0000-0.120)
--- NOTE | 2021-08-22 12:52 | ED.PDOC ---
General ED Provider: Dr. KEN RADER Chief Complaint: Weakness Stated Complaint: Has been diagnosed with COVID has progressively weakened. Poor oral intake. Lives with other family members who also are positive for COVID/ Advised by ambulance EMT's that family informed them that patient tested positive for COVID on 08/13/21. Is supposed to be accepted into a assisted this weekend- Mode of Arrival: Ambulance Information Source: Patient and EMT Exam Limitations: Clinical condition, Dementia and Altered mental status Primary Care Provider: ALMA GALVAN MD Nursing and Triage Documentation Reviewed and Agree: Yes Does patient meet sepsis criteria?: No System Inflammatory Response Syndrome: Not Applicable Sepsis Protocol: For patient's 13 years and over: Temp is 96.8 and below OR 101 and greater Pulse >90 BPM Resp >20/minute Acutely Altered Mental Status Are patient's symptoms suggestive of a new infection, such as: -Pneumonia -Skin, Soft Tissue -Endocarditis -UTI -Bone, Joint Infection -Implantable Device -Acute Abdominal Infection -Wound Infection -Meningitis -Blood Stream Catheter Infection -Unknown Neurological Complaint Exam Weakness Complaint/Exam Last Known Well: unknown Onset: Gradual Duration: 7d Symptoms Are: Still present Timing: Constant Episodes Lasting: Hours Initial Severity: Moderate Current Severity: Moderate Character: Reports Weak and Unable to describe Aggravating: Reports None, Position change and Supine to erect Alleviating: Reports Rest Associated Signs and Symptoms: Reports Nausea Related History: Similar episode Cardiac Risk Factors: Reports None CVA Risk Factors: Reports None and Hypertension Related Surgical History: Reports None JVD Present: No Carotid Bruit Present: No Nystagmus Present: No Meningeal Signs Positive: No Focal Sensory Loss: Present None Gait: Unable [id number]: Abnormal right and Abnormal left Romberg Test Positive: No Babinski Sign: Negative Right and Negative Left Heel to Toe Normal: No Windsor-Hallpike Test Positive: No Differential Diagnoses: Hypovolemia and Other (Dehydration ) Quality Indicator For Non-Traumatic Chest Pain/Syncope: EKG Performed Altered Mental Status Complaint/Exam Current Mental Status: Confusion Last Known Well: 1 week Duration: Unknown Symptoms Are: Still present Timing: Constant [facility] Medical History Abnormal MMSE Diabetes mellitus Diabetic neuropathy Emphysema lung History of BPH Hyperlipidemia Hypertension Interstitial lung disease Pneumonia Family History Mother Diabetes FATHER No problems noted. Social History Smoking and tobacco status: Former smoker Passive smoking exposure: Yes Second hand smoke exposure: Yes Alcohol intake: never Counseling given: No Substance use type: does not use Counseling given: No Didi/episcopalian: [employer] Special didi needs: No Agree to transfusion: Yes Household members: children Housing: other Marital status: W / Lives independently: No service: Yes assisted: No Current occupational status: retired Current occupational exposures/hazards: No History of recent travel: No Sexually active: No Do you think of yourself as: straight/heterosexual Current gender identity: male Seatbelt use: always Surgical History Colectomy History of lumbar surgery Status post appendectomy Status post cholecystectomy Interpretation Radiology Interpretation Exam Interpreted: Portable CXR ( Stable chronic changes of the lungs suggesting interstitial disease. No acute process. 2. Calcific atherosclerosis. ) EKG Interpretation Time of EKG #1: 12:07 Rate: Normal Rhythm: Sinus [place]: Left ST Segment: Normal Interpretation: NSR Physician Notification Case Discussed Physician Notified: Dr Galvan-Discussed Case ; Recommended Admission for continued Hydration Time of Notification: 13:40 Course Course Hematology/Chemistry: 08/23/21 06:09 08/23/21 06:09 Orders, Labs, Meds: Lab Review 08/22/21 08/22/21 08/22/21 12:05 12:11 12:11 WBC 16.89 H RBC 5.71 Hgb 16.0 Hct 47.7 MCV 83.5 MCH 28.0 MCHC 33.5 RDW Coeff of Oj 12.8 Plt Count 257 Immature Gran % (Auto) 1.6 Neut % (Auto) 86.3 H Lymph % (Auto) 3.6 L Coke % (Auto) 8.1 Eos % (Auto) 0.2 Baso % (Auto) 0.2 Neut # (Auto) 14.6 H Lymph # (Auto) 0.6 Coke # (Auto) 1.4 Eos # (Auto) 0.0 Baso # (Auto) 0.0 Immature Gran # (Auto) 0.3 ESR 23 H Puncture Site Rrad Base Excess 0.3 O2 Saturation 93.2 L ABG pH 7.47 H ABG pCO2 33.0 L ABG pO2 63.0 L ABG HCO3 24.0 ABG Total CO2 25.0 H Abelardo Test Yes Hemoglobin 1.0 Oxyhemoglobin 92.6 L Carboxyhemoglobin 1.6 H Total Hemoglobin 15.6 FiO2 % 21.0 Sodium 141.3 Potassium 3.98 Chloride 104.5 Carbon Dioxide 28.2 Anion Gap 12.58 BUN 45.0 H Creatinine 1.32 H Estimated GFR (MDRD) 51.00 BUN/Creatinine Ratio 34.09 Glucose 94.0 Uric Acid 9.88 H Calcium 9.54 Magnesium 2.85 H Total Bilirubin 0.66 AST 48.9 ALT 54.9 H Alkaline Phosphatase 71.5 Total Creatine Kinase 28.2 L Troponin I 0.016 Total Protein 7.89 Albumin 4.15 Globulin 3.74 Albumin/Globulin Ratio 1.10 Amylase 108.4 Adenovirus (PCR) B. pertussis DNA (PCR) B.parapertussis DNA PCR C. pneumoniae DNA (PCR) Coronavirus OC43 (PCR) Coronavirus HKU1 (PCR) Coronavirus 229E (PCR) Coronavirus NL63 (PCR) Human Metapneumovir PCR Influenza Type A (PCR) Influenza B (RT-PCR) M. pneumoniae (PCR) Parainfluenza 1 (PCR) Parainfluenza 2 (PCR) Parainfluenza 3 (PCR) Parainfluenza 4 (PCR) RSV (PCR) Entero/Rhino (PCR) SARS-CoV-2 (PCR) 08/22/21 12:11 WBC RBC Hgb Hct MCV MCH MCHC RDW Coeff of Oj Plt Count Immature Gran % (Auto) Neut % (Auto) Lymph % (Auto) Coke % (Auto) Eos % (Auto) Baso % (Auto) Neut # (Auto) Lymph # (Auto) Coke # (Auto) Eos # (Auto) Baso # (Auto) Immature Gran # (Auto) ESR Puncture Site Base Excess O2 Saturation ABG pH ABG pCO2 ABG pO2 ABG HCO3 ABG Total CO2 Abelardo Test Hemoglobin Oxyhemoglobin Carboxyhemoglobin Total Hemoglobin FiO2 % Sodium Potassium Chloride Carbon Dioxide Anion Gap BUN Creatinine Estimated GFR (MDRD) BUN/Creatinine Ratio Glucose Uric Acid Calcium Magnesium Total Bilirubin AST ALT Alkaline Phosphatase Total Creatine Kinase Troponin I Total Protein Albumin Globulin Albumin/Globulin Ratio Amylase Adenovirus (PCR) Not detected B. pertussis DNA (PCR) Not detected B.parapertussis DNA PCR Not detected C. pneumoniae DNA (PCR) Not detected Coronavirus OC43 (PCR) Not detected Coronavirus HKU1 (PCR) Not detected Coronavirus 229E (PCR) Not detected Coronavirus NL63 (PCR) Not detected Human Metapneumovir PCR Not detected Influenza Type A (PCR) Not detected Influenza B (RT-PCR) Not detected M. pneumoniae (PCR) Not detected Parainfluenza 1 (PCR) Not detected Parainfluenza 2 (PCR) Not detected Parainfluenza 3 (PCR) Not detected Parainfluenza 4 (PCR) Not detected RSV (PCR) Not detected Entero/Rhino (PCR) Not detected SARS-CoV-2 (PCR) Detected H Orders Category Date Time Status ABG DRAW REQUEST Stat CARDIO 08/22/21 11:49 Completed EKG-(ED ONLY) Stat CARDIO 08/22/21 11:49 Completed TELEMETRY MONITORING TELE CARE 08/22/21 13:43 Completed TELEMETRY MONITORING TELE CARE 08/22/21 13:47 Completed IV [ED IV/MEDIPORT/POWERPORT] .ONCE EMERGENCY 08/22/21 11:51 Completed ABG COOX Stat LAB 08/22/21 12:05 Completed AMYLASE Stat LAB 08/22/21 12:11 Completed BLOOD CULTURE (ED ONLY) Stat LAB 08/22/21 12:11 Results CBC W/ AUTO DIFF Stat LAB 08/22/21 12:11 Completed CMP [COMPREHENSIVE METABOLIC PANEL] Stat LAB 08/22/21 12:11 Completed CPK [CREATINE KINASE] Stat LAB 08/22/21 12:11 Completed ESR Stat LAB 08/22/21 12:11 Completed MAGNESIUM Stat LAB 08/22/21 12:11 Completed RESPIRATORY PANEL 2.1 (PCR) Stat LAB 08/22/21 12:11 Completed TROPONIN I Stat LAB 08/22/21 12:11 Completed UA [URINALYSIS C & S IF INDICATED] Stat LAB 08/22/21 17:20 Completed URIC ACID Stat LAB 08/22/21 12:11 Completed 0.9 % Sodium Chloride [Saline Flush] MEDS 08/22/21 11:49 Discontinued 1 syr IVF PRN PRN Azithromycin Inj [Zithromax] 500 mg MEDS 08/22/21 13:51 Discontinued 0.9 % Sodium Chloride [Sodium Chloride] 250 ml IV ONCE Cholecalciferol (Vitamin D3) [Vitamin D] MEDS 08/22/21 13:59 Discontinued 5,000 unit PO ONCE STA Dexamethasone Sod Phosphate [Decadron] MEDS 08/22/21 13:53 Discontinued 6 mg IVP ONCE STA Famotidine [Pepcid] MEDS 08/22/21 13:54 Discontinued 40 mg PO ONCE ONE Sodium Chloride 0.9% [Sodium Chloride] 1,000 ml MEDS 08/22/21 11:47 Discontinued IV BOLUS CHEST, 1V AP ONLY Stat RADS 08/22/21 11:51 Completed Medications Discontinued Medications Generic Name Dose Route Start Last Admin Trade Name Freq PRN Reason Stop Dose Admin Acetaminophen 650 mg 08/22/21 23:19 08/23/21 00:00 Acetaminophen 325 Mg Tablet PO 650 mg Q6H PRN Administration Pain Albuterol/Ipratropium 1 spray 08/22/21 21:00 08/23/21 12:56 Ipratropium/Albuterol Sulfate Inhalation [place] Aer.W.Adap IH 1 spray QID ANTHONY Administration Atorvastatin Calcium 10 mg 08/22/21 18:00 08/22/21 18:44 Atorvastatin Calcium 10 Mg Tablet PO 10 mg QPM ANTHONY Administration Cholecalciferol 5,000 unit 08/22/21 13:59 08/22/21 14:29 Cholecalciferol (Vitamin D3) 1,000 Unit (25 Mcg) Tablet PO 08/22/21 14:00 5,000 unit ONCE STA Administration Dexamethasone Sodium Phosphate 6 mg 08/22/21 13:53 08/22/21 14:08 Dexamethasone Sod Phos 10 Mg/Ml Inj IVP 08/22/21 13:54 6 mg ONCE STA Administration Enoxaparin Sodium 40 mg 08/22/21 18:30 08/23/21 09:14 Enoxaparin Sodium 40 Mg/0.4 Ml Syr SUBCUT 40 mg DAILY ANTHONY Administration Famotidine 40 mg 08/22/21 13:54 08/22/21 14:08 Famotidine 20 Mg Tablet PO 08/22/21 13:55 40 mg ONCE ONE Administration Gabapentin 200 mg 08/22/21 21:00 08/22/21 20:48 Gabapentin 100 Mg Capsule PO 200 mg BID ANTHONY Administration Gabapentin 600 mg 08/22/21 21:00 08/22/21 20:48 Gabapentin 300 Mg Capsule PO 600 mg BID ANTHONY Administration Gabapentin 300 mg 08/23/21 09:00 08/23/21 09:14 Gabapentin 300 Mg Capsule PO 300 mg BID ANTHONY Administration Gabapentin 100 mg 08/23/21 09:00 08/23/21 09:14 Gabapentin 100 Mg Capsule PO 100 mg BID ANTHONY Administration Sodium Chloride 1,000 mls @ 1,000 mls/hr 08/22/21 11:47 08/22/21 12:07 Sodium Chloride IV 08/22/21 12:46 1,000 mls/hr BOLUS STA Administration Azithromycin 500 mg/ Sodium 250 mls @ 125 mls/hr 08/22/21 13:51 08/22/21 14:29 Chloride IV 08/22/21 15:50 125 mls/hr ONCE STA Administration Non-Formulary Medication 400 mg 08/22/21 21:00 Gabapentin PO BID ANTHONY Omeprazole 40 mg 08/22/21 18:00 08/23/21 05:43 Omeprazole 20 Mg Capsule.Dr PO 40 mg 0630 ANTHONY Administration Ondansetron HCl 4 mg 08/22/21 18:01 Ondansetron Hcl 4 Mg Tab.Rapdis PO Q8H PRN Nausea / Vomiting Sodium Chloride 1 syr 08/22/21 11:49 08/22/21 14:29 0.9% Sodium Chloride 10 Ml Disp.Syrin IVF 1 syr PRN PRN Administration To flush IV Vital Signs: Temp Pulse Resp BP Pulse Ox 08/22/21 14:24 97.8 F 58 L 16 98 08/22/21 11:34 97.1 F L 66 17 114/67 94 L Discharge Plan Discharge Patient Disposition: ADMITTED INPATIENT Discharge Problem: COVID-19, Acute dehydration ED Provider: KEN RADER Condition: Stable Physician Progress Note: []
[2021-08-22 13:05] LABS: ADENOVIRUS (PCR) NOT DETECTED (NOT DETECT)
--- NOTE | 2021-08-22 13:07 | DI ---
EXAM: Frontal view of the chest. HISTORY: Dyspnea. COMPARISON: Chest radiograph 05/29/2021. FINDINGS: Scattered ground-glass and reticular opacities in both lungs appear unchanged. Normal heart size. Moderate calcific atherosclerosis. No acute consolidation. No visible effusion or pneumothorax. No acute osseous abnormality. IMPRESSION: 1. Stable chronic changes of the lungs suggesting interstitial disease. No acute process. 2. Calcific atherosclerosis.
[2021-08-22 13:08] LABS: SARS_COV_2 (PCR) DETECTED (NOT DETECT)
[2021-08-22 13:18] LABS: ERYTHROCYTE SEDIMENTATION RATE 23 mm/hr (0-15)
[2021-08-22] MEDS ORDERED: ZITHROMAX 500 MG in SODIUM CHLORIDE 250 ML IV STA (13:51)
[2021-08-22] MEDS ORDERED: DECADRON IVP STA (13:53)
[2021-08-22] MEDS ORDERED: PEPCID PO ONE (13:54)
[2021-08-22] MEDS ORDERED: VITAMIN D PO STA (13:59)
[2021-08-22 14:38] VITALS: BMI 20.2
--- NOTE | 2021-08-22 16:37 | CT ---
EXAM: CT head without contrast. HISTORY: Altered mental status COMPARISON: 08/13/2020 CT head. TECHNIQUE: Axial CT imaging of the brain was performed without contrast. Sagittal and coronal re-for mations were obtained. FINDINGS: The mixon-white differentiation and sulcal detail are preserved. No acute large vessel dist ribution infarction, intracranial bleed or focal mass. Stable remote left basal ganglia lacunar infa rct. Scattered periventricular and subcortical hypodensities are seen. The cerebral sulci are enlarged. The ventricles are enlarged and midline in position. There is no midline shift or mass effect. The basilar cisterns are patent. No displaced skull fracture. The paranasal sinuses are clear. The mastoid air cells are well aerated. IMPRESSION: Moderate atrophy and microvascular white matter changes without acute intracranial proce ss. All CT scans are performed using dose optimization techniques as appropriate to the performed exam an d include at least one of the following: Automated exposure control, adjustment of the mA and/or kV according t o size, and the use of iterative reconstruction technique.
--- NOTE | 2021-08-22 16:43 | PCM ---
Chief Complaint Chief Complaint: Changed mental status, dementia, COVID + Admitted on 08/14/21-08/18/21 History of Present Illness History of Present Illness: Patient presented to [facility] ER today and was evaluated by DR. Mcdonald. Poor historian, altered mental status. The patient is an 89 yr old CM who has had COVID + and progressively weakened. He has had poor oral intake, lives with family who are also +. Ambulance/EMT brought patient to emergency room today. Patient has appointment with facility. Discussed with family (please see below) patient with symptoms for several days. He was supposed to be accepted to group home facility. Mode of arrival ambulance. Last known well unknown, gradual onset over the last 7 days. Symptoms remain present. The patient has been weak and unable to describe further due to dementia. Aggravating none reported. He was able to move from supine to erect. Alleviating factors rest. Nauseated with out any reports of hypertension or emesis. No obvious focal sensory loss noted differential diagnosis included hypovolemia and other dehydration. EKG performed current ental status listed as confusion duration unknown symptoms are still present and constant. Medical history abnormal MMSE, diabetes, diabetic neuropathy, emphysema of the lung, history of BPH, hyperlipidemia, hypertension, interstitial lung disease, pneumonia. He is also had recent COVID-19, weakness and confusion with recent hospital stay at [facility] from 08/14 through 08/19 and positive Covid test on 08/13. Patient is a former smoker. He is a his has 1 year ago. Labs showed white blood cell count 16.89, hemoglobin 16, platelets 257 metabolic panel showed sodium 141.3, potassium 3.98, BUN 45 and creatinine 1.32. Previous creatinine listed as 1.15 on last eval. Glucose of 94. ESR 23 ABG pH 7.47, O2 saturation 93.2, PCO2 63 PCO2 33 Allis test positive. Uric acid 9.88, magnesium 2.85 amylase 108.4. Bio fire positive for coronavirus which makes sense as he is going to continue to be shedding virus. He did get 1 L of normal saline in the ER. UA was ordered troponins were ordered. During the conversation process I reached out to Dr. mcdonald and I informed him that patient did not meet inpatient criteria as he was having a oxygen saturation of 98% on room air he is afebrile and he does not have greater than 0.3 milligrams per deciliter increase \from baseline creatinine. He has altered mental status which is not new. When I discussed with Dr. Mcdonald I recommended that we reach out to case management and discuss what was meant by transfer to group home. This information was not known. It was then reported that the patient was found down in the garage. During the process no family history was obtained. Chest x-ray was completed and showed stable chronic changes of the lungs suggesting interstitial disease no acute process calcific atherosclerosis noted. The patient was on the floor before I was able to truly accept him. I contacted Dr. Mcdonald again at 1546 and asked why he was admitted. He ntoed patient was obtunded. I asked what he meant by that as obtundation has medical definition and nursing note provided GCS of 14. He has progressive dementia and he looked dehydrated was reported to me. I noted that he did not meet admission criteria and was thus changed to observation which is appropriate for his age and infirmary. Because of a history of altered mental status and possibility of being found down I ordered a stat CT head this returned moderate atrophy and microvascular white matter changes without acute intracranial process. There is no bleed. The patient will need to start Lovenox while in hospital. Patient does have a elevated white count with a neutrophilia and a lymphocytosis. He has been on steroids dexamethasone 6 mg after the hospital. He has been on a azithromycin 250 mg daily x4 days, dexamethasone start August 19 and zinc 50 mg daily x3 days. He is on insulin Levemir 30 units at bedtime. Norvasc 10 HCTZ 12.5 hydroxyzine 25 Combivent 1 inhalation 4 times daily latanoprost 1 drop both eyes twice daily lisinopril 40 daily and omeprazole 40 daily. Based on presentation and blood pressure and report of dehydration. The patient does not likely require lisinopril or amlodipine tonight and I will monitor overnight and consider resuming these. I will hold them. I will check an A1c as I do not have 1 recently. The most recent A1c is May 08 at 5.93. Based on age and infirmary the patient is on too much insulin. Goal insulin is 100-120. No insulin tonight. We will check Accu-Cheks and the nurses will call me with update. The discharge summary was obtained as well as the H&P. H&P states that patient has weakness confusion and COVID-19. His history was limited by the fact that he was confused. Family brought back to the ER due to increased confusion ongoing symptoms of diarrhea nausea and vomiting. According to family he has thrown up one time yesterday and no further emesis. Denied any shortness of breath chest pain palpitations cough or sputum production. History was unobtainable by the ER/admission team at [facility]. Labs 12 8 procalcitonin 0.40 CRP 6.86 glucose 193 BUN 35 creatinine 1.3 sodium 139 potassium 4.4 chloride 99 calcium 9.1 ALT 33 AST 46. LDH 308, lactate 2.8, magnesium 2.2. CBC 5.08 white blood cell count, hemoglobin 15.1 and platelets of 127,000. ABG at that point PO2 59.8 HCO3 23.2 O2 saturation 92.2 and pH was 7.413. This is very similar to the ABG that we obtained. Patient was diagnosed with COVID-19 admitted to the hospital with IV fluids management of hyperglycemia with an insulin drip treatment for 6 COVID-19 with dexamethasone and remdesivir trend inflammatory markers maintain O2 saturations greater than 90% did not require supplemental ox ygen, DVT prophylaxis during hospital stay PT OT with L Pap incentive spirometer and flutter valve. Daily labs were ordered. He was full code at that time. Reviewed by Dr. Martell. Discharge summary on [address] Lucas Martell. Same diagnoses. No procedures no consults. Chest x-ray peripheral interstitial fibrotic changes present in the right left lung persistent interstitial fibrotic change in the right and left lung noted. White blood cell count on 1211 4.66 hemoglobin 13.7 platelets 156 CRP 1.09 down from 8.09 on 08 15. Metabolic panel sodium 144, potassium 3.9, chloride 104, CO2 29, creatinine 0.82 with a BUN of 24. He did have a BUN up to 56 with a creatinine of 1.27 and a BUN of 53 with a creatinine of 1.49 on August 15. Bilirubin maintain the same. Liver enzymes were I ideally stable. proBNP was normal at 85.7 on the seventh. Ferritin is elevated at 508. B12 is greater than 2000 and normal. ABG as noted was about the same. Protein on urine blood cultures no growth x4 days discharge exam appearance normal still confused but is improved since yesterday certainly slowed mentation persists. Involvement of the patient's COVID-19 pneumonia still under treatment on discharge with dexamethasone and azithromycin which will be completed. Patient was discharged home. Discharge medications Norvasc 10, HCTZ 12.5, hydroxyzine 25 3 times daily as needed Leve deanna 30 units twice daily, Combivent 4 times daily, latanoprost 1 drop both eyes twice daily, lisinopril 40 daily and Prilosec 40 daily. D-dimer was 0.5 on 08/17/2021. 0.56 on 1212. I obtained a second discharge summary which change the date from 08 14-[address] Wiggins. Glucose was 48, creatinine 0.88, sodium 144, potassium 3.8 calcium 8.8. ALT 30 AST 35 bilirubin direct 0.2 CRP 0.54 procalcitonin 0.12 ferritin 422 lactate 1.1 D-dimer 0.56 white blood cell count 8.86, hemoglobin 14.1 platelets 182. Glucose 131, 126, 127, 108, 75, 53 ferritin was up to 508.90 on 1211. Hospital course was reviewed from the second discharge summary. Patient was admitted and was started on IV fluids and hyperglycemia was treated with an insulin drip initially. Blood sugar normalized and was transitioned to sliding scale insulin home medications. Dexamethasone and remdesivir was given. Treated with DVT prevention. The patient was on 2 L of oxygen only with exertion but nothing at rest. Exercise oximetry O2 at 2 minutes was 86% and better on oxygen at 94. The 6-minute walk test did show positive need for oxygen. Called [phone] and talked with Marilu Foss. Patrice Ferny may be POA and asked me to call [phone]. He was seen in Er on 08/13/21. She noted that he was down for 3 days really bad for 3 day prior to that, feeling bad for several weeks. She noted that he is fully vaccinated he has had #2 doses of COVID, unknown if Pfizer/moderna. Marilu noted Sterling/Ferny set up group home. Talked with Alan at [facility] and they have not yet received a referral on this patient (4:10 PM). I contacted Ferny at 4:18. Went to hospital on Aug 13 and met with ER. They noted 4 days before he was symptomatic. Father of Ferny (son of patient) sick now too. Daughter that lives in home with patient is sick as well. She notes that this am he awoke and was not acting normally, he was staring at them, staring off into space. O2 was low at home 73% at home. She noted she gave him his medications. Breakfast Sausage egg and cheese was given, limited food intake in last 3-4 days. Took a few bites of that, then went back to sleep. Ferny went back to work, taking care of patient in between. Patient awoke and had emesis x 1 yellow and did not want to talk to him. He would not say much to them. Ferny talked to [facility] and discussed case with administration. Records from [facility] were reviewed and they could not take him until 08/28/21. She tried to stress to them he cannot care for him 24 hours daily and work too. She tried to get him into the facility. Symptoms started on 08/09. Still coughing, not wanting to eat, decreased PO intake. This is not much different than when he was at . She feels he should have gone to [place] from Hospital but he came home and family could not care for him. He is DNR. Per ferny he does not want anything. Grandmother 1 year ago. He has not been same person since that point. He has gone down hill from then. She states he does not want to get better. They do not have anyone at home to sit with him. I asked about hospice, they said it was reasonable. Confusion is worsening, alzheimers likely. This has worsened over last 3-6 months. He is getting lost. He just lays in bed does not want to do anything. They feel he is depressed. He does not want meds, they do not know if they meds. I discussed palliative care as the best option for him at this time. I was sportspersons with Ferny through [phone] and this turned into 3way call with Ferny, myself and with Sterling Elias. I had same conversation. I noted feeding tubes were inhumane, they did not want one anyway. Son noted he cannot care for father. I discussed palliative care, discussed hospice, discussed end of life if he is not consuming food/liquids. Worsening confusion, worsening dementia. Family noted 1+ month of worsening confusion, worsening memory, getting lost, losing names, asking same questions. We had 25 minutes conversation today. Per son, pt kept telling him that he needed to go someplace. I think he is ready to go see mom, he does not know for sure. He would hold head, lay back down and then repeat the above. You need to let me go, take me some place. No falls. Son lives in garage apartment. Patient was found in apartment (attached to garage) and he has not moved from that bed since leaving . He was on hideaway couch in the garage, did not fall. No issues urinating in last few days. No blood in stool. BM on day of d/c. No BM since that point. No new skin rashes, no new problems. Son could not get him out of bed long enough to even assess him that much. Son notes no legal POA set up. Sister is oldest (Marilu). Son Asaf elias is youngest. He notes he makes most of the decision. Talked to them again at [phone] to review DNR and plan for next 24 hours Nurse Melanie and nurse Gudelia Present during convesation. Patient was seen by me in room 120 from [id number] and I attempted to obtain history. History was unobtainable. Patient knew name but was unaware of day/date/time/present/location/health. Meds have not been taken approparitely over last few days. Family did not know how much insulin to give, did not know what meds to give. They had a few that were given over last few days but could not tell me which ones. We obtained recent pharmacy med list. This med list is not up to date and contains several years worth of meds. REVIEW OF SYMPTOMS: (Positives bolded) LIMITED BY PATIENT CONFUSION. General: weight loss, fever, chills, night sweats, fatigue, appetite loss HEENT: None reported by patient or family blurry vision, eye pain, eye discharge, dry eyes, decreased vision, sore throat tinnitus, bloody nose, hearin gloss, sinus pain/pressure, ear pain/pressure. Respiratory: None reported by patient or family shortness of breath, cough, hemoptysis, wheezing, pleurisy, Cardiovascular: None reported by patient or family chest pain, PND, palpitation, edema, orthopnea, syncope, swelling of extremities Gastro: Nausea, vomiting, None reported by patient or family diarrhea, hematemesis, abdominal pain, constipation Genito: None reported by patient or family hematuria, dysuria, glycosuria, hesitancy, frequency, incontinence Musckelo: Arthralgia, myalgia, muscle weakness, None reported by patient or family joint swelling, NSAID use Skin: None reported by patient or family rash, pruritis, sores, nail changes, skin thickening, change in wart/mole, itching, rash, new lesions, pruritus, nail changes Neuro: memory loss, None reported by patient or family Migraine, numbness, ataxia, tremor, vertigo, weakness, Irritability, dizziness Endocrine: None reported by patient or family excessive thirst, polyuria, cold intolerance, heat intolerance, goiter Psychiatric: depressionchange in sleep pattern and mood changes, None reported by patient or family anxiety, anti-depressants, alcohol abuse, drug abuse, insomnia, Heme/lymph: None reported by patient or family easy bruising, bleeding gums, blood clots, swollen glands, lymphedema, Allergic/immune: None reported by patient or family allergic rhinitis, hay fever, asthma, hives Vital Signs - 24 hr 08/22/21 11:34 08/22/21 14:24 08/22/21 16:43 Temperature 97.1 F L 97.8 F 97.8 F Pulse Rate 66 58 L 58 L Respiratory Rate 17 16 16 Blood Pressure 114/67 114/67 O2 Sat by Pulse Oximetry 94 L 98 98 Constitutional:Appearance-No acute distress, Pleasantly confused, unaware of day/date/time/location/current events. Consistent with stated age.Build and Nutrition-[underweight]General- Patient is pleasant and cooperative with the interview and exam. However he cannot provide much information. Integumentary: General-No rashes, ulcers or lesions.Palpation- Normal skin moisture/turgor. Skin is warm to touch, appropriate. Capillary refill is normal bilateral Upper and lower extremity. Head/Neck:Head- normocephalic and atraumatic.Neck- without visible/palpable lumps or pulsations.Palpation- No bony tenderness about head/neck along frontal, occipital, temporal, parietal, mastoid, jawline, zygoma, orbit or any other location. NO temporal artery tenderness. No TMJ tenderness. Neck [place] pple.Thyroid-No thyromegaly, no nodules Eye:Bilaterally PERRLA, EOMI. No discharge. Upper and lower eyelids are normal. Sclera/conjunctiva normal without discharge. Cornea is normal and clear. Lens is normal. Eyeball appears normal. No ciliary flushing, no conjunctival injection. ENMT:Hearing Assessment-normal to conversational speech.Nose and sinus- No sinus tenderness along frontal/maxillary region. External appearance normal and midline.Nares- bilateral quiet airflow, no discharge.Nasal mucosa- No bleeding noted and no ulcerations observed. [place], moist. Turbinates non boggy.Lips-nor mal color, moist without cracks/lesionsOral Cavity/Palate- hard/soft palate intact without lesions, oral mucosa pink and moist. Tongue normal midline.edentulous.Oropharynx- no pharyngeal erythema, Uvula midline. No post nasal drip. No exudate.Salivary glands- Non tender to palpation CHEST/LUNG:Inspection- symmetric chest wall no pectus deformity. Normal effort, no distress, no use of accessory muscles.Palpation- nontender sternum, ribline. No abnormal pulsations.Auscultation- Breath sounds normal throughout all lung gastelum. Normal tracheal sounds, Normal bronchial sounds overlying sternum, Bronchovessicular sounds normal between scapulae posteriorly, Normal vessicular breath sounds heard throughout periphery. Lungs are clear today. Adventitious sounds- No wheezes, rales, rhonchi. CARDIOVASCULAR:Carotid artery-normal, no bruits or abnormal pulsations. Jugular vein- no pulsations.Palpation/Percussion- Normal PMI, no palpable thrillAuscultation- Regular rate and rhythm. No murmur noted in sitting, supine positions.Extremities- no digital clubbing, cyanosis, edema, increased warmth. ABDOMEN:Inspection- normal and no visible pulsations. Normal contour. Auscultation- Bowel sounds normal, no abdominal bruits.Palpation/Percussion- soft, non-tender, no rebound tenderness, no rigidity (guarding), no jar tenderness, no masses.Liver-no hepatomegaly,Spleen no splenomegaly,Hernias - none.Rectalnot examined. Peripheral Vascular:Upper extremityLeft- Normal temperature with pink nailbeds and no ulcerations.Upper extremity Right-Normal temperature with pink nailbeds and no ulcerations.Lower extremity- Normal temperature with pink nailbeds and no ulcerations. DP pulses 2+ bilaterally. Pedal hair intact. Normal capillary refill.Edema- No edema. Musculoskeletal:Generalized-No generalized swelling or edema of extremities, no digital clubbing or cyanosis, neurovascularly intact all four extremities. Upper extremity- Symmetrical posture. No visible deformity. Normal sensation along medial and lateral upper extremity proximally and distally. NO tenderness overlying shoulder, lateral/medial epicondyle. Software Deployment Engineer 5/5 and strength 5/5 bilateral UE. Elbow palpated, no tenderness overlying olecranon. Normal supination, pronation to active/passive ROM and to resisted rotation. Bicep insertion/tricep insertion appear normal without obvious pathology. Rotator cuff evaluated and intact. Normal wrist ROM bilaterally. Normal hand movement, intrinsic muscles of hands normal. No tenderness to palpation of hands/wrists/elbows. Lower extremity- Hip: Not tender to palpation, no pain, no swelling, edema or erythema of surrounding tissue, normal strength and tone. Normal appearing hip ROM bilaterally without pain. Knee: Knee ROM normal. No tenderness overlying trochanters, no tenderness about patella, quad tendon, patellar tendon. No tenderness at tibial tuberosity. Ankle: normal ROM not tender to palpation along medial/lateral malleolus. Foot: Normal movement of toes, no tenderness bilateral feet/toes. Spine/Ribs- No deformities, masses or tenderness, no known fractures, normal strength, Normal ROM. Normal stability No tenderness along C/T/L spine. Normal appearing ROM about spine. Neurological:General- Moves all 4 extremities symmetrically. Symmetrical face and body posture.Cranial nerves- individually evaluated II-XII and intact. PERRLA, Normal EOMI, visual/special senses appear intact, Face is symmetrical and normal sensation/movement, normal tongue, normal strength/posture of neck musculature.Continued repeating today, I don't know. I asked questions, did not know how to answer. Repeated above. Poor historian. Neuropsych:Oriented- Person only. Confused, pleasant.Mood/affect- blunted. Speech-Limited, delayed, sparse. Decreased use of language, normal volume. Thought content- Reduced, inability to perform basic computations and apply abstract thought/reason.Associations- non intact, no SI/HI, no reported hallucinations, no reported delusions, no reported obsessions.Judgment/insight - Inappropriate.Memory-Recall non intact, recent memory non intact.Knowledge- Age appropriate fund of knowledge lacking, poor concentration, limited attention span Lymphatic: Head/Neck- normal size and non tender to palpation.Axillary- normal size and non tender to palpation.Femoral and Inguinal- normal size and non tender to palpation. Allergies Allergies Allergy/AdvReac Type Severity Reaction Status Date / Time No Known Allergies Allergy Verified 05/21/21 00:51 [facility] Medical History Abnormal MMSE Diabetes mellitus Diabetic neuropathy Emphysema lung History of BPH Hyperlipidemia Hypertension Interstitial lung disease Pneumonia Surgical History Colectomy History of lumbar surgery Status post appendectomy Status post cholecystectomy Family History Mother Diabetes FATHER No problems noted. Social History Smoking and tobacco status: Former smoker Passive smoking exposure: Yes Second hand smoke exposure: Yes Alcohol intake: never Counseling given: No Substance use type: does not use Counseling given: No Didi/moravian: MU-ISM OF TASHA Special didi needs: No Agree to transfusion: Yes Household members: children Housing: other Marital status: W / Lives independently: No service: Yes correction: No Current occupational status: retired Current occupational exposures/hazards: No History of recent travel: No Sexually active: No Do you think of yourself as: straight/heterosexual Current gender identity: male Seatbelt use: always Medications Medications: Medications Generic Name Dose Route Start Last Admin Trade Name Freq PRN Reason Stop Dose Admin Sodium Chloride 1 syr 08/22/21 11:49 08/22/21 14:29 0.9% Sodium Chloride 10 Ml Disp.Syrin IVF 1 syr PRN PRN Administration To flush IV Body Composition Height: 5 ft 11 in Weight: 144 lb 14.4 oz Body Mass Index (BMI): 20.2 Vital Signs Temperature: 97.8 F Pulse Rate: 58 Respiratory Rate: 16 Blood Pressure: 114/67 O2 Sat by Pulse Oximetry: 98 Physical Examination Appearance: Reports No pain distress and Thin Pain Distress: None Neurological: Reports Motor intact, Reflexes intact, Cranial nerves intact, Disoriented, Alert to verbal and Alert to pain; Denies Oriented Psychiatric: Reports Other; Denies Affect appropriate Lab/Tests/Diagnostic Imaging Lab/Tests/Diagnostic Imaging: Lab Review 08/22/21 08/22/21 08/22/21 12:05 12:11 12:11 WBC 16.89 H RBC 5.71 Hgb 16.0 Hct 47.7 MCV 83.5 MCH 28.0 MCHC 33.5 RDW Coeff of Oj 12.8 Plt Count 257 Immature Gran % (Auto) 1.6 Neut % (Auto) 86.3 H Lymph % (Auto) 3.6 L [place] % (Auto) 8.1 Eos % (Auto) 0.2 Baso % (Auto) 0.2 Neut # (Auto) 14.6 H Lymph # (Auto) 0.6 [place] # (Auto) 1.4 Eos # (Auto) 0.0 Baso # (Auto) 0.0 Immature Gran # (Auto) 0.3 ESR 23 H Puncture Site Rrad Base Excess 0.3 O2 Saturation 93.2 L ABG pH 7.47 H ABG pCO2 33.0 L ABG pO2 63.0 L ABG HCO3 24.0 ABG Total CO2 25.0 H Abelardo Test Yes Hemoglobin 1.0 Oxyhemoglobin 92.6 L Carboxyhemoglobin 1.6 H Total Hemoglobin 15.6 FiO2 % 21.0 Sodium 141.3 Potassium 3.98 Chloride 104.5 Carbon Dioxide 28.2 Anion Gap 12.58 BUN 45.0 H Creatinine 1.32 H Estimated GFR (MDRD) 51.00 BUN/Creatinine Ratio 34.09 Glucose 94.0 Uric Acid 9.88 H Calcium 9.54 Magnesium 2.85 H Total Bilirubin 0.66 AST 48.9 ALT 54.9 H Alkaline Phosphatase 71.5 Total Creatine Kinase 28.2 L Troponin I 0.016 Total Protein 7.89 Albumin 4.15 Globulin 3.74 Albumin/Globulin Ratio 1.10 Amylase 108.4 Adenovirus (PCR) B. pertussis DNA (PCR) B.parapertussis DNA PCR C. pneumoniae DNA (PCR) Coronavirus OC43 (PCR) Coronavirus HKU1 (PCR) Coronavirus 229E (PCR) Coronavirus NL63 (PCR) Human Metapneumovir PCR Influenza Type A (PCR) Influenza B (RT-PCR) M. pneumoniae (PCR) Parainfluenza 1 (PCR) Parainfluenza 2 (PCR) Parainfluenza 3 (PCR) Parainfluenza 4 (PCR) RSV (PCR) Entero/Rhino (PCR) SARS-CoV-2 (PCR) 08/22/21 12:11 WBC RBC Hgb Hct MCV MCH MCHC RDW Coeff of Oj Plt Count Immature Gran % (Auto) Neut % (Auto) Lymph % (Auto) [place] % (Auto) Eos % (Auto) Baso % (Auto) Neut # (Auto) Lymph # (Auto) [place] # (Auto) Eos # (Auto) Baso # (Auto) Immature Gran # (Auto) ESR Puncture Site Base Excess O2 Saturation ABG pH ABG pCO2 ABG pO2 ABG HCO3 ABG Total CO2 Abelardo Test Hemoglobin Oxyhemoglobin Carboxyhemoglobin Total Hemoglobin FiO2 % Sodium Potassium Chloride Carbon Dioxide Anion Gap BUN Creatinine Estimated GFR (MDRD) BUN/Creatinine Ratio Glucose Uric Acid Calcium Magnesium Total Bilirubin AST ALT Alkaline Phosphatase Total Creatine Kinase Troponin I Total Protein Albumin Globulin Albumin/Globulin Ratio Amylase Adenovirus (PCR) Not detected B. pertussis DNA (PCR) Not detected B.parapertussis DNA PCR Not detected C. pneumoniae DNA (PCR) Not detected Coronavirus OC43 (PCR) Not detected Coronavirus HKU1 (PCR) Not detected Coronavirus 229E (PCR) Not detected Coronavirus NL63 (PCR) Not detected Human Metapneumovir PCR Not detected Influenza Type A (PCR) Not detected Influenza B (RT-PCR) Not detected M. pneumoniae (PCR) Not detected Parainfluenza 1 (PCR) Not detected Parainfluenza 2 (PCR) Not detected Parainfluenza 3 (PCR) Not detected Parainfluenza 4 (PCR) Not detected RSV (PCR) Not detected Entero/Rhino (PCR) Not detected SARS-CoV-2 (PCR) Detected H Orders Category Date Time Status ADMIT OBSERVATION [PLACE PATIENT OBSERVATION] .TO ADMISSION 08/22/21 13:43 Active MEDSURG (MONITORED BED) ABG DRAW REQUEST Stat CARDIO 08/22/21 11:49 Completed EKG-(ED ONLY) Stat CARDIO 08/22/21 11:49 Completed OXYGEN Routine CARDIO 08/22/21 11:49 Ordered TELEMETRY MONITORING TELE CARE 08/22/21 13:43 Active TELEMETRY MONITORING TELE CARE 08/22/21 13:47 Active TELEMETRY MONITORING TELE CARE 08/22/21 16:17 Active IV [ED IV/MEDIPORT/POWERPORT] .ONCE EMERGENCY 08/22/21 11:51 Active ABG COOX Stat LAB 08/22/21 12:05 Completed AMYLASE Stat LAB 08/22/21 12:11 Completed BLOOD CULTURE (ED ONLY) Stat LAB 08/22/21 12:11 Received CBC W/ AUTO DIFF Stat LAB 08/22/21 12:11 Completed CMP [COMPREHENSIVE METABOLIC PANEL] Stat LAB 08/22/21 12:11 Completed CPK [CREATINE KINASE] Stat LAB 08/22/21 12:11 Completed ESR Stat LAB 08/22/21 12:11 Completed MAGNESIUM Stat LAB 08/22/21 12:11 Completed RESPIRATORY PANEL 2.1 (PCR) Stat LAB 08/22/21 12:11 Completed TROPONIN I Stat LAB 08/22/21 12:11 Completed UA [URINALYSIS C & S IF INDICATED] Stat LAB 08/22/21 11:52 Uncollected URIC ACID Stat LAB 08/22/21 12:11 Completed 0.9 % Sodium Chloride [Saline Flush] MEDS 08/22/21 11:49 Active 1 syr IVF PRN PRN Azithromycin Inj [Zithromax] 500 mg MEDS 08/22/21 13:51 Discontinued 0.9 % Sodium Chloride [Sodium Chloride] 250 ml IV ONCE Cholecalciferol (Vitamin D3) [Vitamin D] MEDS 08/22/21 13:59 Discontinued 5,000 unit PO ONCE STA Dexamethasone Sod Phosphate [Decadron] MEDS 08/22/21 13:53 Discontinued 6 mg IVP ONCE STA Famotidine [Pepcid] MEDS 08/22/21 13:54 Discontinued 40 mg PO ONCE ONE Sodium Chloride 0.9% [Sodium Chloride] 1,000 ml MEDS 08/22/21 11:47 Discontinued IV BOLUS RESUSCITATION STATUS Routine OTHERS 08/22/21 14:38 Ordered CHEST, 1V AP ONLY Stat RADS 08/22/21 11:[address] HEAD W/O CONTRAST Stat RADS 08/22/21 15:40 Completed Medications Generic Name Dose Route Start Last Admin Trade Name Freq PRN Reason Stop Dose Admin Sodium Chloride 1 syr 08/22/21 11:49 08/22/21 14:29 0.9% Sodium Chloride 10 Ml Disp.Syrin IVF 1 syr PRN PRN Administration To flush IV Discontinued Medications Generic Name Dose Route Start Last Admin Trade Name Oumou PRN Reason Stop Dose Admin Cholecalciferol 5,000 unit 08/22/21 13:59 08/22/21 14:29 Cholecalciferol (Vitamin D3) 1,000 Unit (25 Mcg) Tablet PO 08/22/21 14:00 5,000 unit ONCE STA Administration Dexamethasone Sodium Phosphate 6 mg 08/22/21 13:53 08/22/21 14:08 Dexamethasone Sod Phos 10 Mg/Ml Inj IVP 08/22/21 13:54 6 mg ONCE STA Administration Famotidine 40 mg 08/22/21 13:54 08/22/21 14:08 Famotidine 20 Mg Tablet PO 08/22/21 13:55 40 mg ONCE ONE Administration Sodium Chloride 1,000 mls @ 1,000 mls/hr 08/22/21 11:47 08/22/21 12:07 Sodium Chloride IV 08/22/21 12:46 1,000 mls/hr BOLUS STA Administration Azithromycin 500 mg/ Sodium 250 mls @ 125 mls/hr 08/22/21 13:51 08/22/21 14:29 Chloride IV 08/22/21 15:50 125 mls/hr ONCE STA Administration CXR: Assessment (1) COVID-19: Status: Acute Code(s): U07.1 - COVID-19 SNOMED Code(s): 568583901 Assessment: The patient problem list from the [facility] stay from August 14- was reviewed. 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 No A1c was listed in the hospital. I have ordered an a1c for hospital stay. -I plan to hold the lisinopril, amlodipine, HCTZ pending blood pressure checks overnight. We will check a urinalysis and urine culture Hold Levemir tonight. We will check Accu-Chek - Continue omeprazole. - A1C. (2) Acute dehydration: Status: Acute Code(s): E86.0 - Dehydration SNOMED Code(s): 57810754 Assessment: Fluid x 2 Liters has been given. 1 L in hospital ER and another given tonight on floor. Monitor I+O. Monitor weight. CBC/CMP in am. (3) Leukocytosis: Status: Acute Code(s): D72.829 - Elevated white blood cell count, unspecified SNOMED Code(s): 255484329 Assessment: Suspected steroidal effect with dexamethasone. (4) Dementia: Status: Acute Code(s): F03.90 - Unspecified dementia without behavioral disturbance SNOMED Code(s): 66324270 Assessment: 1. Start aricept at d/c. Monitor bradycardia. (5) Fatigue: Status: Acute Code(s): R53.83 - Other fatigue SNOMED Code(s): 11195687 Plan Plan: Assessment/Plan: Covid/19: The patient has had symptoms since August 09. He tested positive on August 13. The patient has met the 10-day criteria for isolation and thus should be able to go to the group home. We will discharge the patient in the morning to [facility]. Have already contacted and discussed the case with [facility] director. H&P and discharge summary from [facility] from 08 14 through 1212 was reviewed by me. The patient has met a 10-day criteria at this point and is considered no longer contagious based on CDC guidelines. The patient will get a repeat CBC as well as CMP and A1c in the morning. He does have a leukocytosis which may be a response to the steroid effect from the prolonged use of dexamethasone. Vital signs do not meet SIRS criteria, blood cultures negative through x 5 days. He has finished a course of azithromycin. He is on GI medication Prilosec and we will continue this. Blood pressure medicines will be held as his blood pressure is on the lower side and he presented w/ dehydration. He will continue to get Combivent and albuterol. I will take him off of isolation at this time. We will monitor glucoses. Most recent A1c in our system is less than 6. Repeat. Insulin for this man is actually somewhat dangerous and will be held. High blood sugar in the hospital was 334 while at [facility]. Goal blood sugar will be 100-120. I will not treat anything less than 180. TSH was normal 0.438 on 1209. We will check a urine and urine culture. We will monitor patient on telemetry tonight. Chest x-ray was reviewed with family CT head was reviewed. Lengthy conversation with son and with grand daughter. Patient is DNR. Form witnessed/signed. At this time I do not think he would benefit from further antibiotics. I do not feel he would benefit from further steroids. He is alert to person only. He is confused. I have reviewed the admission documentation from [facility] I have also reviewed the ER documentation, discussed case with ER Doctor Harry x 3, with family x 3. Patient will be seen by me again in the morning on 08/23/2021. Nurses and I discussed overnight care and they noted that they would call with any changes overnight. - Admit to obs - 1 L NS now - Tele - Am labs CBC/CMP/A1C - Hold BP meds - Continue COPD meds - Continue PPI - Continue gabapentin - Consider starting aricept at d/c. - Plan D/C to [facility] tomorrow pending improvement/stability. - O2 to maintain >90%. On RA at this tiime. Dementia/weakness Worsening with time. LNF recommended at this time. - Plan d/c to [facility]. Elevated BUN/Cr: Similar/on par with those seen at admission. 2L fluid given. Monitor I+O overnight. No e/o CHF. He is on the dry side. Am labs tomorrow. - CBC/CMP HTN: Historical problem. Patient is on the lower side of the BP. We will hold BP meds for now. COPD: Chronic/stable, continue controller and PRN albuterol meds. - Combivent QID (no urinary retention noted, continue) - Albuterol q2 puffs q 4 hours prn. DVT Prophy: Lovenox 40mg subcut Diet: Consistent carbs, ADA 1800kcal. Activity: Low bed, bed rails, fall risk Dispo: Plan to d/c patient to [facility] in am [place] in the am. Admit to observation. We will monitor via tele overnight. 1 L of fluids. Repeat labs in the am as listed above. We will f/u with patient closely. Fall risks are known and will be monitored. Dehydration is present. He will be tx to [facility] tomorrow per discussion with Aleksandra. 75 minutes of time today spent with patient, discussion with ER doctor several times, family several times, nursing, reviewed H+P and D/C summary, reviewed labs and imaging from recent hospital stay.
[2021-08-22 17:26] LABS: BILIRUBIN,URINE Negative (NEGATIVE); CLARITY,URINE Clear (CLEAR); COLOR,URINE Yellow (YELLOW); GLUCOSE, URINE (UA) Negative (NEGATIVE); KETONES,URINE Negative (NEGATIVE); LEUKOCYTE ESTERASE ,URINE Negative (NEGATIVE); NITRITE,URINE Negative (NEGATIVE); PH,URINE 5.5 (5-9); PROTEIN,URINE Negative (NEGATIVE); URINE, BLOOD Negative (NEGATIVE); UROBILINOGEN,URINE 0.2 (0.2)
[2021-08-22] MEDS ORDERED: LIPITOR PO SCH (18:00)
[2021-08-22] MEDS ORDERED: ZOFRAN ODT PO PRN (18:01)
[2021-08-22] MEDS: LOVENOX SUBCUT SCH (18:44)
[2021-08-22] MEDS: PRILOSEC PO SCH (18:44)
[2021-08-22] MEDS ORDERED: NON-FORMULARY MEDICATION (Gabapentin 400 mg capsule) PO SCH (21:00)
[2021-08-22] MEDS ORDERED: NEURONTIN PO SCH ×2 (21:00)
[2021-08-22] MEDS ORDERED: TYLENOL PO PRN (23:19)
[2021-08-23] MEDS: COMBIVENT RESPIMAT INHALER IH SCH ×3 (00:02→12:56)
[2021-08-23] MEDS: PRILOSEC PO SCH (05:43)
[2021-08-23 06:58] LABS: ALANINE AMINOTRANSFERASE 43.3 U/L (0-50); ALBUMIN 3.34 g/dL (3.5-5.0); ALKALINE PHOSPHATASE 64.6 U/L (56-119); ASPARTATE AMINO TRANSFERASE 32.6 U/L (17-59); BILIRUBIN,TOTAL 0.53 mg/dL (0.2-1.3); BLOOD UREA NITROGEN 37.5 mg/dL (9-20); CALCIUM 8.83 mg/dL (8.4-10.2); CHLORIDE 107.5 mmol/L (98-107); GLUCOSE 150.2 mg/dL (74-106); POTASSIUM 4.29 mmol/L (3.5-5.1); SODIUM 139.5 mmol/L (134.5-145); TOTAL PROTEIN 6.23 g/dL (6.3-8.2)
[2021-08-23 07:05] LABS: BASOPHILS % (AUTO) 0.1 % (0.0-3.0); HEMATOCRIT 39.7 % (42.0-52.0); HEMOGLOBIN 13.6 g/dl (14.0-18.0); IMMATURE GRANULOCYTE # (AUTO) 0.1 (0.0-1.0); IMMATURE GRANULOCYTE % (AUTO) 1.3 % (0.0-5.0); LYMPHOCYTES # (AUTO) 0.6 K/uL (0.60-3.4); LYMPHOCYTES % (AUTO) 7.1 (10.0-50.0); MEAN CORPUSCULAR HEMOGLOBIN 28.1 pg (27.0-31.0); MEAN CORPUSCULAR HGB CONC 34.3 (31.8-35.4); MONOCYTES # (AUTO) 0.9 K/uL (0.4-2.0); MONOCYTES % (AUTO) 11.4 (0-10); NEUTROPHILS # (AUTO) 6.2 K/ul (2.0-6.9); NEUTROPHILS % (AUTO) 80.1 % (42.2-75.2); PLATELET COUNT 224 10^3/uL (140-440); RDW COEFFICIENT OF VARIATION 12.7 % (11.6-14.8); RED BLOOD COUNT 4.84 10^6/ul (4.70-6.10); WHITE BLOOD COUNT 7.71 K/ul (4.2-10.2)
--- NOTE | 2021-08-23 07:41 | PCM.DC ---
Final Diagnosis: 1. Dementia advanced suggested Alzheimers - Add Namenda 5mg daily 2. Covid 19 dx 08/13/21 Symptom onset 08/09/21. - Remdesevir/Decadron completed - Azithromycin completed - Zinc course completed - Reviewed H+P and D/C summary from 08/14-08/19. 3. Failure to thrive 4. Dehydration 5. Elevated BUN/Creatinine without ASAF criteria met: RESOLVED 6. 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 Current check pending - Levemir Held 7. History HTN: BP medications held due to dehydration and hypotension 8. Isolation: None 9. Leukcoytosis: RESOLVED 10. COPD: Stable. 11. Former smoker 12. Underweight. (1) COVID-19: Status: Acute Code(s): U07.1 - COVID-19 SNOMED Code(s): 741536652 (2) Acute dehydration: Status: Acute Code(s): E86.0 - Dehydration SNOMED Code(s): 68302006 (3) Leukocytosis: Status: Acute Code(s): D72.829 - Elevated white blood cell count, unspecified SNOMED Code(s): 620991781 (4) Dementia: Status: Acute Code(s): F03.90 - Unspecified dementia without behavioral disturbance SNOMED Code(s): 92702950 (5) Fatigue: Status: Acute Code(s): R53.83 - Other fatigue SNOMED Code(s): 17501539 Medications at Discharge: Ambulatory Orders Medication Instructions Recorded atorvastatin 10 mg tablet 10 mg PO QPM #90 tab 04/13/20 acetaminophen 650 mg 650 mg PO Q8H PRN 05/09/20 tablet,extended release (Tylenol 8 Hour) cyanocobalamin (vitamin B-12) 1,000 mcg IM ONCE #1 ml 06/25/20 1,000 mcg/mL injection solution albuterol sulfate 90 mcg/actuation 2 puff IH Q4-6H PRN #18 g 07/02/20 aerosol inhaler gabapentin 400 mg capsule 400 mg PO BID #60 cap 11/13/20 omeprazole 40 mg capsule,delayed 40 mg PO QDAY #90 cap 03/06/21 release polyethylene glycol 3350 17 17 g PO QDAY #510 g 03/06/21 gram/dose oral powder (Miralax) ipratropium 20 mcg-albuterol 100 1 puff INHALATION QID #4 g 05/08/21 mcg/actuation mist for inhalation (Combivent Respimat) donepezil 5 mg tablet (Aricept) 5 mg PO BEDTIME #90 tab 08/23/21 Lab/Diagnostics: Laboratory Last Values WBC 7.71 K/ul (4.2-10.2) D 08/23/21 06:09 RBC 4.84 10^6/ul (4.70-6.10) 08/23/21 06:09 Hgb 13.6 g/dl (14.0-18.0) L 08/23/21 06:09 Hct 39.7 % (42.0-52.0) L D 08/23/21 06:09 MCV 82.0 fl (80.0-94.0) 08/23/21 06:09 MCH 28.1 pg (27.0-31.0) 08/23/21 06:09 MCHC 34.3 (31.8-35.4) 08/23/21 06:09 RDW Coeff of Oj 12.7 % (11.6-14.8) 08/23/21 06:09 Plt Count 224 10^3/uL (140-440) 08/23/21 06:09 Immature Gran % (Auto) 1.3 % (0.0-5.0) 08/23/21 06:09 Neut % (Auto) 80.1 % (42.2-75.2) H 08/23/21 06:09 Lymph % (Auto) 7.1 (10.0-50.0) L 08/23/21 06:09 [place] % (Auto) 11.4 (0-10) H 08/23/21 06:09 Eos % (Auto) 0.0 % (0.0-7.0) 08/23/21 06:09 Baso % (Auto) 0.1 % (0.0-3.0) 08/23/21 06:09 Neut # (Auto) 6.2 K/ul (2.0-6.9) 08/23/21 06:09 Lymph # (Auto) 0.6 K/uL (0.60-3.4) 08/23/21 06:09 [place] # (Auto) 0.9 K/uL (0.4-2.0) 08/23/21 06:09 Eos # (Auto) 0.0 K/ul (0.0-0.7) 08/23/21 06:09 Baso # (Auto) 0.0 K/uL (0-0.2) 08/23/21 06:09 Immature Gran # (Auto) 0.1 (0.0-1.0) 08/23/21 06:09 ESR 23 mm/hr (0-15) H 08/22/21 12:11 Puncture Site Rrad 08/22/21 12:05 Base Excess 0.3 (-2.0-3.0) 08/22/21 12:05 O2 Saturation 93.2 % (94-98) L 08/22/21 12:05 ABG pH 7.47 (7.35-7.45) H 08/22/21 12:05 ABG pCO2 33.0 mmHg (35-45) L 08/22/21 12:05 ABG pO2 63.0 mmHg (85-100) L 08/22/21 12:05 ABG HCO3 24.0 (21-28) 08/22/21 12:05 ABG Total CO2 25.0 (19-24) H 08/22/21 12:05 Abelardo Test Yes 08/22/21 12:05 Hemoglobin 1.0 (0-1.5) 08/22/21 12:05 Oxyhemoglobin 92.6 % (95-100) L 08/22/21 12:05 Carboxyhemoglobin 1.6 (0.5-1.5) H 08/22/21 12:05 Total Hemoglobin 15.6 g/dl (11.7-17.4) 08/22/21 12:05 FiO2 % 21.0 % 08/22/21 12:05 Sodium 139.5 mmol/L (134.5-145) 08/23/21 06:09 Potassium 4.29 mmol/L (3.5-5.1) 08/23/21 06:09 Chloride 107.5 mmol/L (98-107) H 08/23/21 06:09 Carbon Dioxide 25.0 mmol/L (22-30.0) 08/23/21 06:09 Anion Gap 11.29 08/23/21 06:09 BUN 37.5 mg/dL (9-20) H 08/23/21 06:09 Creatinine 1.00 mg/dL (0.60-1.10) 08/23/21 06:09 Estimated GFR (MDRD) 71.00 mL/min 08/23/21 06:09 BUN/Creatinine Ratio 37.50 08/23/21 06:09 Glucose 150.2 mg/dL (74-106) H D 08/23/21 06:09 Hemoglobin A1c 6.55 (4.0-6.0) H 08/23/21 06:09 Uric Acid 9.88 mg/dL (3.5-8.5) H 08/22/21 12:11 Calcium 8.83 mg/dL (8.4-10.2) 08/23/21 06:09 Magnesium 2.85 mg/dL (1.6-2.3) H 08/22/21 12:11 Total Bilirubin 0.53 mg/dL (0.2-1.3) 08/23/21 06:09 AST 32.6 U/L (17-59) 08/23/21 06:09 ALT 43.3 U/L (0-50) 08/23/21 06:09 Alkaline Phosphatase 64.6 U/L (56-119) 08/23/21 06:09 Total Creatine Kinase 28.2 U/L (55-170) L 08/22/21 12:11 Troponin I 0.016 ng/ml (0.0000-0.120) 08/22/21 12:11 Total Protein 6.23 g/dL (6.3-8.2) L 08/23/21 06:09 Albumin 3.34 g/dL (3.5-5.0) L 08/23/21 06:09 Globulin 2.89 08/23/21 06:09 Albumin/Globulin Ratio 1.15 08/23/21 06:09 Amylase 108.4 U/L (30-110) 08/22/21 12:11 Urine Color Yellow (YELLOW) 08/22/21 17:20 Urine Clarity Clear (CLEAR) 08/22/21 17:20 Urine pH 5.5 (5-9) 08/22/21 17:20 Ur Specific [place] >=1.030 (1.005-1.030) 08/22/21 17:20 Urine Protein Negative (NEGATIVE) 08/22/21 17:20 Urine Glucose (UA) Negative (NEGATIVE) 08/22/21 17:20 Urine Ketones Negative (NEGATIVE) 08/22/21 17:20 Urine Blood Negative (NEGATIVE) 08/22/21 17:20 Urine Nitrite Negative (NEGATIVE) 08/22/21 17:20 Urine Bilirubin Negative (NEGATIVE) 08/22/21 17:20 Urine Urobilinogen 0.2 (0.2) 08/22/21 17:20 Ur Leukocyte Esterase Negative (NEGATIVE) 08/22/21 17:20 Adenovirus (PCR) Not detected (NOT DETECT) 08/22/21 12:11 B. pertussis DNA (PCR) Not detected (NOT DETECT) 08/22/21 12:11 B.parapertussis DNA PCR Not detected (NOT DETECT) 08/22/21 12:11 C. pneumoniae DNA (PCR) Not detected (NOT DETECT) 08/22/21 12:11 Coronavirus OC43 (PCR) Not detected (NOT DETECT) 08/22/21 12:11 Coronavirus HKU1 (PCR) Not detected (NOT DETECT) 08/22/21 12:11 Coronavirus 229E (PCR) Not detected (NOT DETECT) 08/22/21 12:11 Coronavirus NL63 (PCR) Not detected (NOT DETECT) 08/22/21 12:11 Human Metapneumovir PCR Not detected (NOT DETECT) 08/22/21 12:11 Influenza Type A (PCR) Not detected (NOT DETECT) 08/22/21 12:11 Influenza B (RT-PCR) Not detected (NOT DETECT) 08/22/21 12:11 M. pneumoniae (PCR) Not detected (NOT DETECT) 08/22/21 12:11 Parainfluenza 1 (PCR) Not detected (NOT DETECT) 08/22/21 12:11 Parainfluenza 2 (PCR) Not detected (NOT DETECT) 08/22/21 12:11 Parainfluenza 3 (PCR) Not detected (NOT DETECT) 08/22/21 12:11 Parainfluenza 4 (PCR) Not detected (NOT DETECT) 08/22/21 12:11 RSV (PCR) Not detected (NOT DETECT) 08/22/21 12:11 Entero/Rhino (PCR) Not detected (NOT DETECT) 08/22/21 12:11 SARS-CoV-2 (PCR) Detected (NOT DETECT) H 08/22/21 12:11 Chest Xray: 08/22/21 IMPRESSION: 1. Stable chronic changes of the lungs suggesting interstitial disease. No acute process. 2. Calcific atherosclerosis. CT Head 08/22/21. IMPRESSION: Moderate atrophy and microvascular white matter changes without acute intracranial process. Education Provided to Patient and Family: Patient with dementia. Family educated 08/22/21. Follow-ups: 1. Plan D/C to [facility] this am. Dr. Blue to follow. Discharge Disposition: [facility] Hospital Course: 89-year-old male hospital day #2 admitted on 08/22/2021 to observation with plan to discharge 08/23/2021 to [facility] and rehab. The patient tested positive for Covid on 08/13 with symptoms starting on August 09. The patient has been more than 10 days since onset of symptoms and thus can be removed from isolation based on CDC guidelines. The patient did complete remdesivir as well as Decadron and completed a round of azithromycin with recent hospitalization stay at [facility]. He presented to the emergency room on 1215 with worsening fatigue, worsening dementia and decreased ability. Family unable to care for patient and patient unable to care for self. The patient is oriented only to person. He has to ask several times to be reguided. I stopped his lisinopril, amlodipine, hydrochlorothiazide overnight. Additionally I held his Levemir as his most recent A1c was 5.93 on 05/08/2021. Based on patient's history age and medical problems an A1c goal of less than 8 is likely reasonable. Hypoglycemia is a concerning finding I want to avoid this. We continued Combivent and albuterol. CT head showed no bleed and did show atrophy present. With worsening dementia and inability to care for family, the plan is for the patient to be discharged on 08/23/2021 to [facility] and rehab. On presentation to the ER the patient's labs were notable for a elevated white count of 16.89 with a predominant neutrophilia, ESR of 23. A BUN of 45 with a creatinine of 1.32 Covid positive ABG of pH 7.47, PCO2 33 PO2 of 63%. He was on room air and satting 94 to 98%. Urine slightly concentrated specific gravity 1.030 - protein blood ketones nitrites bili. Chest x-ray was essentially negative. I did cover him with Lovenox after the negative CT head. Reviewed overnight progress notes. Patient had a headache around 2321 and was given Tylenol. Observation narratives reviewed headache noted to be decreased at 1:00 in the morning. O2 on room air 97% fall precautions in place bed alarm in place. At 2:00 headache completely resolved. Telemetry replaced several times. Patient continues to remove leads. Oh 3:00 patient was more restless patient requested water and this was given. Sinus bradycardia at 58 no atypia found on telemetry. At 4:00 this morning. The patient was unchanged remains disoriented. Patient remained pleasantly confused through the night. Patient received a total of 2 L of fluid yesterday. Headache came and went resolved with Tylenol. 5:00 this morning denied pain replaced electrodes. 97% room air. Patient remained stable. Unchanged at 6:00 this morning. Overnight vitals showed patient remained afebrile. Heart rate listed as 53 through 66. Blood pressure off of medications 114/67, 131/63 and 119/58. I will continue to hold his medications. Respiratory rate 16-18. O2 saturation 94 to 98% on room air. Telemetry FL interval 0.22 suggesting a heart block. Suggests first-degree block. SHELLIE since he was admitted total intake 671 total output 540. Body mass index of 20 with a weight of 144. This represents a rate of about 0.9-1.15 mL/kg/h. Labs this morning show a white blood cell count that is returned to normal at 7.71. Hemoglobin stable at 13.6. Patient still has a neutrophilia of 80%. Again I suspect steroidal effect. Chemistry this morning sodium 139.5, potassium 4.29 BUN 37.5 creatinine of 1 glucose of 150.2. As noted I believe I will continue to hold the Levemir, hold the lisinopril, hold the amlodipine, hold the hydrochlorothiazide. Patient does not require these degree of medications. Based on the level of dementia I will start Aricept at 5 mg once daily and consider increase to 10 mg in 1 month. Based on the already present bradycardia I will hold the Namenda for 1 week and likely start this through the retirement at that point. Family has noted patient/family would request palliative care only at this point. Patient status unchanged overnight And he is ready for discharge to [facility] at their convenience. I would like a CBC and CMP in 1 week. I would like an update from [facility] if blood pressures greater than 140/90. Case d/w am nurse Daphne. Discussed with lab. Reviewed telemetry. >30 minutes spent on d/c this am. Total time not including documentation 32 minutes. I would like fasting Accu-Chek every other day x2 weeks as well as 1 hour post largest meal on those days. Vital Signs - 24 hr 08/22/21 11:34 08/22/21 14:24 08/22/21 16:43 Temperature 97.1 F L 97.8 F 97.8 F Pulse Rate 66 58 L 58 L Respiratory Rate 17 16 16 Blood Pressure 114/67 114/67 O2 Sat by Pulse Oximetry 94 L 98 98 08/22/21 20:00 08/22/21 21:23 08/23/21 02:33 Temperature 97.7 F Pulse Rate 63 Respiratory Rate 18 18 Blood Pressure 131/63 O2 Sat by Pulse Oximetry 97 97 96 08/23/21 04:39 08/23/21 05:48 Temperature 97.6 F Pulse Rate 53 L Respiratory Rate 18 Blood Pressure 119/58 L O2 Sat by Pulse Oximetry 96 96 Constitutional:Appearance-No acute distress, Pleasantly confused, unaware of day/date/time/location/current events. Consistent with stated age.Build and Nutrition-[underweight]General- Patient is pleasant and cooperative with the interview and exam. However he cannot provide much information. Integumentary: General-No rashes, ulcers or lesions.Palpation- Normal skin moisture/turgor. Skin is warm to touch, appropriate. Capillary refill is normal bilateral Upper and lower extremity. Head/Neck:Head- normocephalic and atraumatic.Neck- without visible/palpable lumps or pulsations.Palpation- No bony tenderness about head/neck along frontal, occipital, temporal, parietal, mastoid, jawline, zygoma, orbit or any other location. NO temporal artery tenderness. No TMJ tenderness. Neck Supple.Thyroid-No thyromegaly, no nodules Eye:Bilaterally PERRLA, EOMI. No discharge. Upper and lower eyelids are nor mal. Sclera/conjunctiva normal without discharge. Cornea is normal and clear. Lens is normal. Eyeball appears normal. No ciliary flushing, no conjunctival injection. ENMT:Hearing Assessment-normal to conversational speech.Nose and sinus- No sinus tenderness along frontal/maxillary region. External appearance normal and midline.Nares- bilateral quiet airflow, no discharge.Nasal mucosa- No bleeding noted and no ulcerations observed. [place], moist. Turbinates non boggy.Lips- normal color, moist without cracks/lesionsOral Cavity/Palate- hard/soft palate intact without lesions, oral mucosa pink and moist. Tongue normal midline.e dentulous. Oropharynx- no pharyngeal erythema, Uvula midline. No post nasal drip. No exudate.Salivary glands- Non tender to palpation CHEST/LUNG:Inspection- symmetric chest wall no pectus deformity. Normal effort, no distress, no use of accessory muscles.Palpation- nontender sternum, ribli ne. No abnormal pulsations.Auscultation- Breath sounds normal throughout all lung gastelum. Normal tracheal sounds, Normal bronchial sounds overlying sternum, Bronchovessicular sounds normal between scapulae posteriorly, Normal vessicular breath sounds heard throughout periphery. Lungs are clear today.Adventitious sounds- No wheezes, rales, rhonchi. CARDIOVASCULAR:Carotid artery-normal, no bruits or abnormal pulsations. Jugular vein- no pulsations.Palpation/Percussion- Normal PMI, no palpable thrillAuscultation- Regular rate and rhythm. No murmur noted in sitting, supine positions.Extremities- no digital clubbing, cyanosis, edema, increased warmth. ABDOMEN:Inspection- normal and no visible pulsations. Normal contour. Auscultation- Bowel sounds normal, no abdominal bruits.Palpation/Percussion- soft, non-tender, no rebound tenderness, no rigidity (guarding), no jar tenderness, no masses.Liver-no hepatomegaly,Spleen no splenomegaly,Hernias - none.Rectalnot examined. Peripheral Vascular:Upper extremityLeft- Normal temperature with pink nailbeds and no ulcerations.Upper extremity Right-Normal temperature with pink nailb eds and no ulcerations.Lower extremity- Normal temperature with pink nailbeds and no ulcerations. DP pulses 2+ bilaterally. Pedal hair intact. Normal capillary refill.Edema- No edema. Musculoskeletal:Generalized-No generalized swelling or edema of extremities, no digital clubbing or cyanosis, neurovascularly intact all four extremities. Neurological:General- Moves all 4 extremities symmetrically. Symmetrical face and body posture.Cranial nerves- individually evaluated II-XII and intact. PERRLA, Normal EOMI, visual/special senses appear intact, Face is symmetrical and normal sensation/movement, normal tongue, normal strength/posture of neck musculature.Continued repeating today, I just woke up here, I don't know what happened. I asked questions, did not know how to answer. Repeated above. Neuropsych:Oriented- Person only. Confused, pleasant. Mood/affect- blunted. Speech-Limited, delayed, sparse. Decreased use of language, normal volume.. Thought content- Reduced, inability to perform basic computations and apply abstract thought/reason.Associations- non intact, no SI/HI, no reported hallucinations, no reported delusions, no reported obsessions.Judgment/insight - Inappropriate.Memory-Recall non intact, recent memory non intact.Knowledge- Age appropriate fund of knowledge lacking, poor concentration, limited attention span Lymphatic: Head/Neck- normal size and non tender to palpation.Axillary- normal size and non tender to palpation.Femoral and Inguinal- normal size and non tender to palpation. Plan: 1. Plan to D/C to [facility] today. 2. F/U with patietn tomorrow in [place] 3. Continue to hold lisinopril, hctz, amlodipine. 4. Continue to hold levemir 5. Plan QOD fasting accucheck and 1 hour after largest meal. Monitor glucose and provide log to me. 6. Start Aricept 5mg (INCREASE TO 10mg in 1 month) 7. Consider add-on Namenda in 1 month 8. Palliative Care only per family (son sAaf and Granddaugther Jennifer). 9. Patient is DNR, witnessed by #2 nurses plus myself via telephone. 10. CBC and CMP in 1 week 11. A1C Pending through [facility]. 12. Continue prilosec, continue combivent and albuterol. Continue gabapentin. Continue b12. Covid symptoms started 08/09/21, tested 08/13/21 and Positive. Transfer to [place] on 08/23/21 suggests he is out of the isolation phase. 32 minutes spent today on d/c.
[2021-08-23] MEDS ORDERED: NEURONTIN PO SCH ×2 (09:00)
[2021-08-23] MEDS: LOVENOX SUBCUT SCH (09:14)
[2021-08-23 13:35] VITALS: BP 130/71; TEMP 97.8
== END 2021-08-23 15:35 ==
LOC: ED 11:30 → MEDSURG B 13:48 → INTOOBSV 14:38
PROVIDERS: ADMIT Family Medicine; ATTEND Family Medicine
DX: D72.829 Elevated white blood cell count, unspecified; R53.1 Weakness; F03.90 Unspecified dementia, unspecified severity, without behavioral disturbance, psychotic disturbance, mood disturbance, and anxiety; U07.1 COVID-19; E86.0 Dehydration